=== PATIENT | female | born 1955 | race Hispanic/Latino ===

== ENCOUNTER 2020-09-18 11:09 | Emergency (ER) | payer OTHER ==
--- NOTE | 2020-09-18 12:38 | RAD REPORT ---
EXAM DESCRIPTION: CT - Head Brain Wo Cont - 09/18/2020 12:29 pm CLINICAL HISTORY: Dizziness;Syncope COMPARISON: Brain W/Wo Cont dated 03/24/2020 TECHNIQUE: Axial 5 mm thick images of the head were obtained without IV contrast. All CT scans are performed using dose optimization technique as appropriate and may include automated exposure control or mA/KV adjustment according to patient size. FINDINGS: No intracranial hemorrhage, mass, edema or shift of mid-line structures. No acute cortical based infarction identified. No cortical edema or sulcal effacement. Patient has mild to moderate at rophy for age. Ventricles are in proportion to the amount of volume loss. Scattered areas of diminish ed attenuation are seen in the cerebral white matter consistent with chronic ischemic change. More fo patricia and more pronounced diminished attenuation seen in the deep periventricular white matter of the l eft frontal lobe extending towards the posterior limb internal capsule. This has the appearance of ol d infarction. Diminished attenuation is seen in the posterior left cerebellum probably old CVA as wel l. No abnormal extra-axial fluid collections. Intracranial findings are not clearly different from e March 2020 CT study. Mastoid air cells and visualized portions of the paranasal sinuses are clear. No acute bony findings. IMPRESSION: No hemorrhage, mass or acute intracranial finding identifiable. Atrophy, chronic ischemic change and old CVA changes are present matching the March 2020 study. Chronic ischemic changes can mask nonhemorrhagic acute infarction. MR brain followup can be obtained if there is ongoing concern for acute ischemia.
--- NOTE | 2020-09-18 12:49 | RAD REPORT ---
EXAM DESCRIPTION: RAD - Chest Single View - 09/18/2020 12:44 pm CLINICAL HISTORY: COUGH, syncope COMPARISON: None TECHNIQUE: AP portable chest image was obtained 09/18/2020 12:44 pm . FINDINGS: Lungs are clear. Heart and vasculature are normal. No measurable pleural effusion and no p neumothorax. No acute bony abnormality seen. No acute aortic findings suspected. IMPRESSION: No acute cardiopulmonary process.
--- NOTE | 2020-09-18 12:50 | RAD REPORT ---
EXAM DESCRIPTION: RAD - Elbow Right 3 View - 09/18/2020 12:44 pm CLINICAL HISTORY: FALL, post syncopal episode elbow injury COMPARISON: No comparisons FINDINGS: No fracture is identified and no elevated posterior fat pad. There is no dislocation or pe riosteal reaction noted. No foreign body or other soft tissue abnormality. No other significant findi ng. IMPRESSION: Negative right elbow examination.
[2020-09-18 13:11] LABS: Absolute Lymphocytes (CBC) 1.3 K/uL (0.7-4.9); Basophils % 0.7 % (0-1.3); Hematocrit 36.9 % (36.0-45.0); Lymphocytes % 23.7 % (15.3-44.8); MPV 8.2 fL (7.6-11.3); RBC Red Blood Cell Count 4.42 M/uL (3.86-4.86)
[2020-09-18 13:21] LABS: Protime INR 0.99
[2020-09-18 13:30] LABS: ALT/SGPT 30 U/L (12-78); AST/SGOT 42 U/L (15-37); Albumin 3.8 g/dL (3.4-5.0); Alkaline Phosphatase 67 U/L (45-117); BUN Blood Urea Nitrogen 18 mg/dL (7-18); Bicarbonate 29 mmol/L (21-32); Bilirubin Direct 0.1 mg/dL (0-0.2); Bilirubin Total 0.5 mg/dL (0.2-1.0); Glucose Level 73 mg/dL (74-106); Magnesium 1.7 mg/dL (1.8-2.4); NT PRO-BNP 150 pg/mL (<125); Potassium 4.4 mmol/L (3.5-5.1); Protein, Total 7.4 g/dL (6.4-8.2); Sodium Level 143 mmol/L (136-145); Troponin (Emerg Dept Use Only) < 0.02 ng/mL (0.0-0.045)
--- NOTE | 2020-09-18 14:33 | EDPHYS ---
Physician Documentation [facility] Name: Carmenza Sinclair Age: 64 yrs Sex: Female : 1955 Arrival Date: 09/18/2020 Time: 11:10 Bed 15 Private MD: ED Physician Jagdish Payne HPI: 09/18 14:24 This 64 yrs old Female presents to ER via Stretcher with complaints of Fall irish Injury, Syncope. 14:24 Details of fall: The patient fell from an upright position, while walking. Onset: The irish symptoms/episode began/occurred just prior to arrival. Associated injuries: The patient sustained right elbow, contusion, decreased range of motion. Severity of symptoms: At their worst the symptoms were mild, in the emergency department the symptoms are unchanged. The patient has not experienced similar symptoms in the past. Historical: - Allergies: 11: No Known Allergies; iw - Home Meds: : clopidogrel 75 mg oral tab 1 tab once daily [Active]; glimepiride 4 mg Oral tab 1 tab iw once daily [Active]; amlodipine 10 mg tab 1 tab once daily [Active]; memantine 5 mg oral tab 2 times per day [Active]; metformin 1,000 mg Oral tab 1 tab 2 times per day [Active]; carvedilol 6.25 mg oral tab 1 tab 2 times per day [Active]; levetiracetam 500 mg oral tab 1 tab 2 times per day [Active]; lisinopril 20 mg Oral tab twice a day [Active]; gabapentin 300 mg oral cap as needed [Active]; aspirin 81 mg Oral TbEC 1 tab once daily [Active]; atorvastatin 20 mg oral tab nightly [Active]; sertraline 50 mg oral tab 1 tab nightly [Active]; - PMHx: 11:22 Diabetes - NIDDM; Hypertension; Hyperlipidemia; iw - PSHx: 11: Tubal ligation; iw - Immunization history:: Adult Immunizations Client reports receiving the 2nd dose of the Covid vaccine, Date received: August 2020. - Social history:: Smoking status: Patient denies any tobacco usage or history of. ROS: 14:26 Constitutional: Negative for fever, chills, and weight loss, Eyes: Negative for injury, irish pain, redness, and discharge, ENT: Negative for injury, pain, and discharge, Neck: Negative for injury, pain, and swelling, Cardiovascular: Negative for chest pain, palpitations, and edema, Respiratory: Negative for shortness of breath, cough, wheezing, and pleuritic chest pain, Abdomen/GI: Negative for abdominal pain, nausea, vomiting, diarrhea, and constipation, Back: Negative for injury and pain, : Negative for injury, bleeding, discharge, and swelling, Skin: Negative for injury, rash, and discoloration, Neuro: Negative for headache, weakness, numbness, tingling, and seizure, Psych: Negative for depression, anxiety, suicide ideation, homicidal ideation, and hallucinations, Allergy/Immunology: Negative for hives, rash, and allergies, Endocrine: Negative for neck swelling, polydipsia, polyuria, polyphagia, and marked weight changes, Hematologic/Lymphatic: Negative for swollen nodes, abnormal bleeding, and unusual bruising. 14:26 MS/extremity: Positive for decreased range of motion, pain, swelling, tenderness, of the right elbow. Exam: 14:26 Constitutional: This is a well developed, well nourished patient who is awake, alert, irish and in no acute distress. Head/Face: Normocephalic, atraumatic. Eyes: Pupils equal round and reactive to light, extra-ocular motions intact. Lids and lashes normal. Conjunctiva and sclera are non-icteric and not injected. Cornea within normal limits. Periorbital areas with no swelling, redness, or edema. ENT: Nares patent. No nasal discharge, no septal abnormalities noted. Tympanic membranes are normal and external auditory canals are clear. Oropharynx with no redness, swelling, or masses, exudates, or evidence of obstruction, uvula midline. Mucous membranes moist. Neck: Trachea midline, no thyromegaly or masses palpated, and no cervical lymphadenopathy. Supple, full range of motion without nuchal rigidity, or vertebral point tenderness. No Meningismus. Chest/axilla: Normal chest wall appearance and motion. Nontender with no deformity. No lesions are appreciated. Cardiovascular: Regular rate and rhythm with a normal S1 and S2. No gallops, murmurs, or rubs. Normal PMI, no JVD. No pulse deficits. Respiratory: Lungs have equal breath sounds bilaterally, clear to auscultation and percussion. No rales, rhonchi or wheezes noted. No increased work of breathing, no retractions or nasal flaring. Abdomen/GI: Soft, non-tender, with normal bowel sounds. No distension or tympany. No guarding or rebound. No evidence of tenderness throughout. Back: No spinal tenderness. No costovertebral tenderness. Full range of motion. Female : Normal external genitalia. Skin: Warm, dry with normal turgor. Normal color with no rashes, no lesions, and no evidence of cellulitis. Neuro: Awake and alert, GCS 15, oriented to person, place, time, and situation. Cranial nerves II-XII grossly intact. Motor strength 5/5 in all extremities. Sensory grossly intact. Cerebellar exam normal. Normal gait. Psych: Awake, alert, with orientation to person, place and time. Behavior, mood, and affect are within normal limits. 14:26 Musculoskeletal/extremity: ROM: full active range of motion, full passive range of motion, Circulation is intact in all extremities. Sensation intact. Compartment Syndrome exam of affected extremity: is normal. DVT Exam: negative Homans' sign noted on exam, no appreciated bluish discoloration, no erythema, no increased warmth, pain, swelling, tenderness. 14:30 ECG was reviewed by the Attending Physician. [facility] Vital Signs: 11:15 BP 138 / 77; Pulse 73; Resp 16; Temp 97.3; Pulse Ox 99% on R/A; Weight 93.44 kg; Height iw 5 ft. 2 in. (157.48 cm); 11:15 Body Mass Index 37.68 (93.44 kg, 157.48 cm) iw MDM: 11:58 Patient medically screened. [facility] 14:29 Differential diagnosis: closed fracture, contusion, tendonitis. Differential diagnosis: irish contusion. Data reviewed: vital signs, nurses notes, lab test result(s), EKG, radiologic studies, CT scan, plain films. Data interpreted: Pulse oximetry: on room air is 99 %. Test interpretation: by ED physician or midlevel provider: ECG, plain radiologic studies. Counseling: I had a detailed discussion with the patient and/or guardian regarding: the historical points, exam findings, and any diagnostic results supporting the discharge/admit diagnosis, lab results, radiology results, the need for outpatient follow up, for definitive care, a mason tender, a family practitioner. 09/18 11:59 Order name: Basic Metabolic Panel; Complete Time: 14:18 [facility] 09/18 11:59 Order name: CBC with Diff; Complete Time: 14:18 [facility] 09/18 11:59 Order name: LFT's; Complete Time: 14:18 [facility] 09/18 11:59 Order name: Magnesium; Complete Time: 14:18 [facility] 09/18 11:59 Order name: NT PRO-BNP; Complete Time: 14:18 [facility] 09/18 11:59 Order name: PT-INR; Complete Time: 14:18 [facility] 09/18 11:59 Order name: Troponin (emerg Dept Use Only); Complete Time: 14:18 [facility] 09/18 11:59 Order name: XRAY Chest (1 view); Complete Time: 14:18 [facility] 09/18 11:59 Order name: EKG; Complete Time: 12:00 [facility] 09/18 11:59 Order name: Cardiac monitoring; Complete Time: 13:08 [facility] 09/18 11:59 Order name: CT Head Brain wo Cont; Complete Time: 14:18 [facility] 09/18 12:39 Order name: Elbow Right 3 View; Complete Time: 14:18 ED[facility] 09/18 11:59 Order name: EKG - Nurse/Tech; Complete Time: 13:08 [facility] 09/18 11:59 Order name: IV Saline Lock; Complete Time: 13:07 [facility] 09/18 11:59 Order name: Labs collected and sent; Complete Time: 13:07 [facility] 09/18 11:59 Order name: O2 Per Protocol; Complete Time: 13:07 [facility] 09/18 11:59 Order name: O2 Sat Monitoring; Complete Time: 13:08 [facility] 09/18 14:19 Order name: PO challenge: juice; Complete Time: 14:34 [facility] 09/18 14:28 Order name: Ice pack; Complete Time: 14:34 [facility] EC:30 Rate is 67 beats/min. Rhythm is regular. QRS [place] is Normal. [place] interval is normal. QRS irish interval is normal. QT interval is normal. No Q waves. T waves are Normal. No ST changes noted. Clinical impression: Normal ECG and No evidence of ischemia. Interpreted by me. Reviewed by me. Administered Medications: 13:08 Drug: NS 0.9% 1000 ml Route: IV; Rate: 1 bolus; Site: right antecubital; tr6 14:47 Drug: Magnesium Sulfate 1 grams Route: IVPB; Infused Over: 1 hrs; Site: right tr6 antecubital; 16:00 Follow up: Response: No adverse reaction; IV Status: Completed infusion; IV Intake: tr6 100ml Disposition: 09/18/20 14:33 Discharged to Home. Impression: Syncope and collapse - near, Contusion of right elbow, Type 2 diabetes mellitus, Pain in left knee, Hypomagnesemia, Hypoglycemia, unspecified. - Condition is Stable. - Discharge Instructions: Joint Pain, Arthritis, Hypoglycemia, Hypomagnesemia, Musculoskeletal Pain, Near-Syncope, Obesity, Adult, Weakness, Knee Pain, Cryotherapy, Figp-zo-[id number], Near-Syncope, Dovn-lf-Ovge, Weakness, Rgml-co-Incw, Cryotherapy, Knee Pain, Xdyq-xh-Kokr, Hypoglycemia, Hzfq-gf-Znzx, Joint Pain, Poeg-ut-Qihl, Vasovagal Syncope, Adult. - Medication Reconciliation Form, Thank You Letter, Antibiotic Education, Prescription Opioid Use form. - Follow up: Private Physician; When: 2 - 3 days; Reason: Recheck today's complaints, Continuance of care, Re-evaluation by your physician. Follow up: Donald Castillo MD; When: 2 - 3 days; Reason: Recheck today's complaints, Continuance of care, Re-evaluation by your physician. Follow up: Luis Parikh MD; When: 2 - 3 days; Reason: Recheck today's complaints, Re-evaluation by your physician. - Problem is new. - Symptoms have improved. Signatures: Dispatcher [employer] EDJagdish Pastor MD MD cha Williams, Irene, RN RN iw Ramnanan, Tiffany, RN RN tr6 Corrections: (The following items were deleted from the chart) 16:01 14:33 09/18/2020 14:33 Discharged to Home. Impression: Syncope and collapse - near; tr6 Contusion of right elbow; Type 2 diabetes mellitus; Pain in left knee; Hypomagnesemia; Hypoglycemia, unspecified. Condition is Stable. Forms are Medication Reconciliation Form, Thank You Letter, Antibiotic Education, Prescription Opioid Use. Follow up: Private Physician; When: 2 - 3 days; Reason: Recheck today's complaints, Continuance of care, Re-evaluation by your physician. Follow up: Dr. Donald Castillo; When: 2 - 3 days; Reason: Recheck today's complaints, Continuance of care, Re-evaluation by your physician. Follow up: Luis Parikh; When: 2 - 3 days; Reason: Recheck today's complaints, Re-evaluation by your physician. Problem is new. Symptoms have improved. irish
--- NOTE | 2020-09-18 14:33 | ER ---
Nurse's Notes [facility] Name: Carmenza Sinclair Age: 64 yrs Sex: Female : 1955 Arrival Date: 09/18/2020 Time: 11:10 Bed 15 Private MD: Diagnosis: Syncope and collapse-near;Contusion of right elbow;Type 2 diabetes mellitus;Pain in left knee;Hypomagnesemia;Hypoglycemia, unspecified Presentation: 09/18 11:15 Chief complaint: Patient's son or daughter states: pt had her bone density test, had a iw mammogram and as she was walking out she had a syncopal episode , fell against her son, did not hit head, hit her right elbow , abrasion noted , pt states she feels back to her normal self now. Coronavirus screen: At this time, the client does not indicate any symptoms associated with coronavirus-19. Ebola Screen: Patient negative for fever greater than or equal to 101.5 degrees Fahrenheit, and additional compatible Ebola Virus Disease symptoms Patient denies exposure to infectious person. Patient denies travel to an Ebola-affected area in the 21 days before illness onset. No symptoms or risks identified at this time. Initial Sepsis Screen: Does the patient meet any 2 criteria? No. Patient's initial sepsis screen is negative. Does the patient have a suspected source of infection? No. Patient's initial sepsis screen is negative. Risk Assessment: Do you want to hurt yourself or someone else? Patient reports no desire to harm self or others. Onset of symptoms was September 18, 2020. 11:15 Method Of Arrival: Stretcher 11:15 Acuity: STACIE 3 iw Historical: - Allergies: 11:22 No Known Allergies; iw - Home Meds: 11:22 clopidogrel 75 mg oral tab 1 tab once daily [Active]; glimepiride 4 mg Oral tab 1 tab iw once daily [Active]; amlodipine 10 mg tab 1 tab once daily [Active]; memantine 5 mg oral tab 2 times per day [Active]; metformin 1,000 mg Oral tab 1 tab 2 times per day [Active]; carvedilol 6.25 mg oral tab 1 tab 2 times per day [Active]; levetiracetam 500 mg oral tab 1 tab 2 times per day [Active]; lisinopril 20 mg Oral tab twice a day [Active]; gabapentin 300 mg oral cap as needed [Active]; aspirin 81 mg Oral TbEC 1 tab once daily [Active]; atorvastatin 20 mg oral tab nightly [Active]; sertraline 50 mg oral tab 1 tab nightly [Active]; - PMHx: 11:22 Diabetes - NIDDM; Hypertension; Hyperlipidemia; iw - PSHx: 11:22 Tubal ligation; iw - Immunization history:: Adult Immunizations Client reports receiving the 2nd dose of the Covid vaccine, Date received: August 2020. - Social history:: Smoking status: Patient denies any tobacco usage or history of. Screenin:15 Abuse screen: Denies threats or abuse. Denies injuries from another. Nutritional tr6 screening: No deficits noted. Tuberculosis screening: No symptoms or risk factors identified. Fall Risk Fall in past 12 months (25 points). Assessment: 14:14 General: Appears in no apparent distress. Behavior is calm, cooperative, appropriate tr6 for age. Pain: Complains of pain in right elbow. Neuro: No deficits noted. Cardiovascular: No deficits noted. Respiratory: No deficits noted. GI: No deficits noted. : No deficits noted. EENT: No deficits noted. Derm: No deficits noted. Musculoskeletal: No deficits noted. Injury Description: Bruise sustained to right elbow pt s/p mechanical fall. pt states her "knee went out and she fell. i did not lose consciousness.". 14:50 Reassessment: pt receiving IVPB mag. to be discharged once completed. tr6 Vital Signs: 11:15 BP 138 / 77; Pulse 73; Resp 16; Temp 97.3; Pulse Ox 99% on R/A; Weight 93.44 kg; Height iw 5 ft. 2 in. (157.48 cm); 11:15 Body Mass Index 37.68 (93.44 kg, 157.48 cm) iw ED Course: 11:10 Patient arrived in ED. ds1 11:18 Triage completed. iw 11:22 Arm band placed on. iw 11:58 Jagdish Payne MD is Attending Physician. [facility] 12:00 Camilla De La Paz RN is Primary Nurse. tr6 12:29 CT Head Brain wo Cont In Process Unspecified. EDMS 12:41 X-ray completed. Patient tolerated procedure well. Patient moved to radiology via mh1 stretcher. Patient moved back from radiology. 12:42 XRAY Chest (1 view) In Process Unspecified. EDMS 12:42 Elbow Right 3 View In Process Unspecified. EDMS 13:08 Inserted saline lock: 20 gauge in right antecubital area, using aseptic technique. tr6 Blood collected. 14:15 Awaiting re-evaluation by ER provider. tr6 14:15 Patient has correct armband on for positive identification. Fall risk band placed. Bed tr6 in low position. Call light in reach. Side rails up X2. Pulse ox on. NIBP on. Notified ED physician of. Door closed. 14:15 No provider procedures requiring assistance completed. tr6 14:31 Donald Castillo MD is Referral Physician. irish 14:31 Luis Parikh MD is Referral Physician. [facility] Administered Medications: 13:08 Drug: NS 0.9% 1000 ml Route: IV; Rate: 1 bolus; Site: right antecubital; tr6 14:47 Drug: Magnesium Sulfate 1 grams Route: IVPB; Infused Over: 1 hrs; Site: right tr6 antecubital; 16:00 Follow up: Response: No adverse reaction; IV Status: Completed infusion; IV Intake: tr6 100ml Intake: 16:00 IV: 100ml; Total: 100ml. tr6 Outcome: 14:33 Discharge ordered by . [facility] 16:00 Discharged to home via wheelchair, with family. tr6 16:00 Condition: good 16:00 Discharge instructions given to patient, Instructed on discharge instructions, medication usage, safety practices, Demonstrated understanding of instructions, follow-up care, medications. 16:01 Patient left the ED. tr6 Signatures: Dispatcher [employer] Jagdish Maldonado MD MD cha Harvey, Martha 1 Nayeli Kearney 1 Belem Steele RN RN iw Ramnanan, Tiffany, RN RN tr6
[2020-09-18] MEDS ORDERED: MAGNESIUM SULFATE 1 gm IVPB 1 GM/100 ML BAG IV ONE (14:57)
[2020-09-18 16:09] VITALS: BP 138/77; TEMP 97.3; O2SAT 99
--- NOTE | 2020-09-19 10:29 | EKG ---
Test Date: 2020-09-18 Test Time: 12:05:36 Shirt Hemmer: LANG MEASUREMENT RESULTS: Intervals: Rate: 67 AK: 152 QRSD: 84 QT: 454 QTc: 479 [place]: P: 55 AK: 152 QRS: 8 T: 16 INTERPRETIVE STATEMENTS: Normal sinus rhythm Normal ECG Compared to ECG 09/01/2020 14:15:29 No significant changes Electronically Signed On 09-19-20 10:25:55 CDT by Luis Parikh
== END 2020-09-18 16:01 | disposition home or self-care (01) ==
LOC: ER 11:09
DX: S50.01XA Contusion of right elbow, initial encounter (principal); M25.562 Pain in left knee; E83.42 Hypomagnesemia; E11.649 Type 2 diabetes mellitus with hypoglycemia without coma; I10 Essential (primary) hypertension; E78.5 Hyperlipidemia, unspecified; Z79.82 Long term (current) use of aspirin
CPT/HCPCS: 85025; 80048; 36415; 83735; 85610; 80076; 84484; 83880; 70450; 71045; 73080; J3475; 93005; 96365; 99284

== ENCOUNTER 2021-02-05 12:17 | Emergency (ER) | payer OTHER ==
--- NOTE | 2021-02-05 13:33 | RAD REPORT ---
EXAM DESCRIPTION: CT - Head Brain Wo Cont - 02/05/2021 1:10 pm CLINICAL HISTORY: PAIN COMPARISON: Facial Bones W/ Mpr dated 02/05/2021; Head Brain Wo Cont dated 09/18/2020 TECHNIQUE: All CT scans are performed using dose optimization technique as appropriate and may inclu de automated exposure control or mA/KV adjustment according to patient size. FINDINGS: No intracranial hemorrhage, hydrocephalus or extra-axial fluid collection.No areas of brai n edema or evidence of midline shift. Remote left basal ganglia infarct. Chronic small vessel ischemi c changes. The paranasal sinuses and mastoids are clear. The calvarium is intact. IMPRESSION: No acute intracranial abnormality. No skull fracture.
--- NOTE | 2021-02-05 13:34 | RAD REPORT ---
EXAM DESCRIPTION: CT - CTFB CLINICAL HISTORY: FACIAL PAIN COMPARISON: No comparisons TECHNIQUE: Axial 2 mm thick images of the face were obtained with sagittal and coronal reconstructio n images. All CT scans are performed using dose optimization technique as appropriate and may include automated exposure control or mA/KV adjustment according to patient size. FINDINGS: No acute facial bone fracture is seen.The mandible is intact. The globes and orbital contents are grossly unremarkable.The paranasal sinuses and mastoids are clear . Left cheek hematoma. IMPRESSION: Negative for facial bone fracture.Left cheek hematoma.
--- NOTE | 2021-02-05 14:01 | RAD REPORT ---
EXAM DESCRIPTION: RAD - Hand Left 3 View - 02/05/2021 1:53 pm CLINICAL HISTORY: PAIN COMPARISON: No comparisons FINDINGS: No acute fracture. No malalignment. Degenerative changes are present at the first MCP join t. Mild diffuse interphalangeal joint degenerative changes with joint space narrowing. IMPRESSION: No acute osseous abnormality involving the left hand.
--- NOTE | 2021-02-05 14:06 | EDPHYS ---
Physician Documentation [facility] Name: Carmenza Sinclair Age: 65 yrs Sex: Female : 1955 Arrival Date: 02/05/2021 Time: 12:19 Bed 20 Private MD: SUMAN Physician Jagdish Payne HPI: 02/05 14:11 This 65 yrs old Female presents to ER via Wheelchair with complaints of Fall kb Injury - Hit Head. 14:11 Details of fall: The patient fell from an upright position, while walking. Onset: The kb symptoms/episode began/occurred just prior to arrival. Associated injuries: The patient sustained injury to the head, hematoma, pain, swelling, tenderness, heel of left hand, hematoma, painful injury. Severity of symptoms: At their worst the symptoms were moderate, in the emergency department the symptoms are unchanged. The patient has not experienced similar symptoms in the past. The patient has not recently seen a physician. Pt tripped over 's oxygen tubing and fell. Hit face on fridge and then fell to the ground. Reports pain to cheek and left hand. Historical: - Allergies: 12:32 Cortisone; swelling; vg1 - Home Meds: 12:32 amlodipine 10 mg tab 1 tab once daily [Active]; aspirin 81 mg Oral TbEC 1 tab once vg1 daily [Active]; atorvastatin 20 mg Oral tab nightly [Active]; carvedilol 6.25 mg Oral tab 1 tab 2 times per day [Active]; clopidogrel 75 mg Oral tab 1 tab once daily [Active]; gabapentin 300 mg Oral cap as needed [Active]; glimepiride 4 mg Oral tab 1 tab once daily [Active]; lisinopril 20 mg Oral tab twice a day [Active]; memantine 5 mg Oral tab 2 times per day [Active]; metformin 1,000 mg Oral tab 1 tab 2 times per day [Active]; sertraline 50 mg Oral tab 1 tab nightly [Active]; levetiracetam 500 mg Oral tab 1 tab 2 times per day [Active]; - PMHx: 12:32 Diabetes - NIDDM; Hyperlipidemia; Hypertension; Seizure; Cerebrovascular accident; vg1 - Immunization history:: Adult Immunizations up to date, Client reports receiving the 2nd dose of the Covid vaccine. - Social history:: Smoking status: Patient denies any tobacco usage or history of. ROS: 14:09 Constitutional: Negative for fever, chills, and weight loss. kb 14:09 Skin: Positive for hematoma, of the left cheek. 14:09 Skin: Positive for ecchymosis, of the heel of left hand. kb 14:09 All other systems are negative. 14:09 MS/extremity: Positive for ecchymosis, pain, tenderness, of the heel of left hand. kb Exam: 14:10 Constitutional: This is a well developed, well nourished patient who is awake, alert, kb and in no acute distress. Head/Face: Normocephalic, atraumatic. ENT: Moist Mucous membranes Respiratory: Respirations even and unlabored. No increased work of breathing, no retractions or nasal flaring. MS/ Extremity: Pulses equal, no cyanosis. Neurovascular intact. Full, normal range of motion. Neuro: Awake and alert, GCS 15, oriented to person, place, time, and situation. Moves all extremities. Normal gait. Psych: Awake, alert, with orientation to person, place and time. Behavior, mood, and affect are within normal limits. 14:10 Skin: injury, contusion(s), that are superficial, of the heel of left hand. 14:10 Head/face: Noted is no obvious of injury or deformity except hematoma, that is kb moderate, of the left cheek. Vital Signs: 12:29 BP 145 / 75; Pulse 72; Resp 16; Temp 98.1; Pulse Ox 98% ; Weight 95.25 kg; Height 5 ft. vg1 4 in. (162.56 cm); Pain 5/10; 14:00 BP 128 / 76; Pulse 75; Resp 18; Temp 98.2(O); Pulse Ox 100% on R/A; sl2 14:50 BP 134 / 67; Pulse 70; Resp 18; Pulse Ox 100% on R/A; ll1 12:29 Body Mass Index 36.05 (95.25 kg, 162.56 cm) vg1 MDM: 13:12 Patient medically screened. kb 14:09 Data reviewed: vital signs, nurses notes. Data interpreted: Pulse oximetry: on room air kb is 100 %. Interpretation: normal. Counseling: I had a detailed discussion with the patient and/or guardian regarding: the historical points, exam findings, and any diagnostic results supporting the discharge/admit diagnosis, radiology results, the need for outpatient follow up, a family practitioner, to return to the emergency department if symptoms worsen or persist or if there are any questions or concerns that arise at home. 02/05 12:35 Order name: CT Head Brain wo Cont; Complete Time: 13:36 kb 02/05 12:35 Order name: CT Facial Bones W/O Con; Complete Time: 13:36 kb 02/05 12:35 Order name: Hand Left 3 View XRAY; Complete Time: 14:03 kb Administered Medications: No medications were administered Disposition: 02/06 11:31 Co-signature as Attending Physician, Jagdish Payne MD I agree with the assessment and irish plan of care. Disposition Summary: 02/05/21 14:06 Discharge Ordered Location: Home kb Condition: Stable kb Diagnosis - Contusion of left hand kb - Hematoma of left cheek kb Followup: kb - With: Emergency Department - When: As needed - Reason: Worsening of condition Followup: kb - With: Private Physician - When: 2 - 3 days - Reason: Recheck today's complaints, Continuance of care, Re-evaluation by your physician Discharge Instructions: - Discharge Summary Sheet kb - Hematoma, [id number] kb - Contusion, [id number] kb - Head Injury, Adult, [id number] kb Forms: - Medication Reconciliation Form kb - Thank You Letter kb - Antibiotic Education kb - Prescription Opioid Use kb Signatures: Dispatcher [employer] EDJagruti Sky, SOLDERING TECHNICIAN-C SOLDERING TECHNICIAN-Jagdish Enamorado MD MD cha Garcia, Victoria, RN RN vg1 Corrections: (The following items were deleted from the chart) 02/05 12:36 12:32 Allergies: No Known Allergies; vg1 vg1
--- NOTE | 2021-02-05 14:06 | ER ---
Nurse's Notes [facility] Name: Carmenza Sinclair Age: 65 yrs Sex: Female : 1955 Arrival Date: 02/05/2021 Time: 12:19 Bed 20 Private MD: Diagnosis: Contusion of left hand;Hematoma of left cheek Presentation: 02/05 12:29 Chief complaint: Patient states: Around 1100 pt tripped and hit left side of cheek onto vg1 refrigerator. Pt appears to have an abrasion on Left cheek and a bruise/swelling on Left palm. Pt is on a blood thinner, but cant remember the name. Pt denies headache, blur vision, [place]. Coronavirus screen: Vaccine status: Patient reports receiving the 2nd dose of the covid vaccine. Client denies travel out of the [place] in the last 14 days. Ebola Screen: Patient negative for fever greater than or equal to 101.5 degrees Fahrenheit, and additional compatible Ebola Virus Disease symptoms. Initial Sepsis Screen: Does the patient meet any 2 criteria? No. Patient's initial sepsis screen is negative. Does the patient have a suspected source of infection? No. Patient's initial sepsis screen is negative. Risk Assessment: Do you want to hurt yourself or someone else? Patient reports no desire to harm self or others. Onset of symptoms was February 05, 2021. 12:29 Method Of Arrival: Wheelchair vg1 12:29 Acuity: STACIE 3 vg1 Triage Assessment: 12:32 General: Appears in no apparent distress. comfortable, Behavior is calm, cooperative. vg1 Pain: Complains of pain in left cheek. 12:32 Neuro: Level of Consciousness is awake, alert, obeys commands, Oriented to person, vg1 place, time, situation, Oxidation Operator are equal bilaterally Speech is normal. Historical: - Allergies: 12:32 Cortisone; swelling; vg1 - Home Meds: 12:32 amlodipine 10 mg tab 1 tab once daily [Active]; aspirin 81 mg Oral TbEC 1 tab once vg1 daily [Active]; atorvastatin 20 mg Oral tab nightly [Active]; carvedilol 6.25 mg Oral tab 1 tab 2 times per day [Active]; clopidogrel 75 mg Oral tab 1 tab once daily [Active]; gabapentin 300 mg Oral cap as needed [Active]; glimepiride 4 mg Oral tab 1 tab once daily [Active]; lisinopril 20 mg Oral tab twice a day [Active]; memantine 5 mg Oral tab 2 times per day [Active]; metformin 1,000 mg Oral tab 1 tab 2 times per day [Active]; sertraline 50 mg Oral tab 1 tab nightly [Active]; levetiracetam 500 mg Oral tab 1 tab 2 times per day [Active]; - PMHx: 12:32 Diabetes - NIDDM; Hyperlipidemia; Hypertension; Seizure; Cerebrovascular accident; vg1 - Immunization history:: Adult Immunizations up to date, Client reports receiving the 2nd dose of the Covid vaccine. - Social history:: Smoking status: Patient denies any tobacco usage or history of. Screenin:30 Abuse screen: Denies threats or abuse. sl2 13:30 Abuse screen: Denies threats or abuse. Nutritional screening: No deficits noted. sl2 Tuberculosis screening: No symptoms or risk factors identified. Never had TB. Possible symptoms: None Risk factors: None Intervention for positive screen: ED Physician notified. Fall Risk No fall in past 12 months (0 pts). No secondary diagnosis (0 pts). No IV (0 pts). Ambulatory Aid- None/Bed Rest/Nurse Assist (0 pts). Gait- Normal/Bed Rest/Wheelchair (0 pts) Mental Status- Oriented to own ability (0 pts). Total Cox Fall Scale indicates No Risk (0-24 pts). 14:50 Fall Risk Fall in past 12 months (25 points). Secondary diagnosis (15 points) impaired sl2 mobility, No IV (0 pts). Ambulatory Aid- Crutches/Cane/Walker (15 pts). Gait- Impaired (20 pts.). Mental Status- Oriented to own ability (0 pts). Total Cox Fall Scale indicates High Risk Score (45 or more points). Fall prevention measures have been instituted. Side Rails Up X 2 Placed Close to Nursing Station Frequent Obs/Assessments Occuring Family Present and informed to notify staff if the need to leave the bedside. Assessment: 12:38 General: Appears in no apparent distress. well developed, Behavior is calm, sl2 cooperative, Reports mild pain to left cheek, swelling and ecchymotic bruising noted, Patient reports tripped and fell hitting her face on the refrigerator at home - takes blood thinners. 12:38 Pain: Complains of pain in face and left cheek Pain does not radiate. Pain currently is sl2 4 out of 10 on a pain scale. at worst was 6 out of 10 on a pain scale. Quality of pain is described as aching, Pain began suddenly, Is continuous, Alleviated by cold application, Aggravated by palpation. Neuro: No deficits noted. Level of Consciousness is awake, alert, obeys commands, Oriented to person, place, time, situation, Appropriate for age Oxidation Operator are equal bilaterally Moves all extremities. Gait is unsteady, Speech is normal, Facial symmetry appears normal. Cardiovascular: No deficits noted. Respiratory: No deficits noted. GI: No deficits noted. : No deficits noted. EENT: No deficits noted. Derm: Skin is intact, Skin is dry, Skin is pink, warm \T\ dry. Skin temperature is warm Reports hitting her face on refrigerator secondary to trip and fall, swelling and ecchymotic bruising noted to left cheek. Musculoskeletal: No deficits noted. 14:05 Reassessment: Patient sitting up in bed - AAO X 3, shows no signs of acute distress or sl2 discomfort, vital signs stable. Patient denies needing pain medication at this time. Awaiting completion of diagnostic studies. Will continue to re-assess and monitor. 14:50 Reassessment: No changes from previously documented assessment. Patient and/or family ll1 updated on plan of care and expected duration. Pain level reassessed. Patient is alert, oriented x 3, equal unlabored respirations, skin warm/dry/pink. Vital Signs: 12:29 BP 145 / 75; Pulse 72; Resp 16; Temp 98.1; Pulse Ox 98% ; Weight 95.25 kg; Height 5 ft. vg1 4 in. (162.56 cm); Pain 5/10; 14:00 BP 128 / 76; Pulse 75; Resp 18; Temp 98.2(O); Pulse Ox 100% on R/A; sl2 14:50 BP 134 / 67; Pulse 70; Resp 18; Pulse Ox 100% on R/A; ll1 12:29 Body Mass Index 36.05 (95.25 kg, 162.56 cm) vg1 ED Course: 12:19 Patient arrived in ED. ds1 12:32 Triage completed. vg1 12:32 Arm band placed on. vg1 12:34 Jagruti Vasquez [facility]-C [facility]. kb 12:34 Jagdish Payne MD is Attending Physician. kb 13:10 CT Head Brain wo Cont In Process Unspecified. EDMS 13:10 CT Facial Bones W/O Con In Process Unspecified. EDMS 13:30 Patient has correct armband on for positive identification. Bed in low position. Adult sl2 w/ patient. 13:30 No provider procedures requiring assistance completed. sl2 13:48 Mae Austin, RN is Primary Nurse. sl2 13:53 Hand Left 3 View XRAY In Process Unspecified. EDMS 14:50 Side rails up X 1. sl2 14:50 Patient did not have IV access during this emergency room visit. ll1 Administered Medications: No medications were administered Outcome: 14:06 Discharge ordered by MD. kb 14:50 Discharged to home via wheelchair. ll1 14:50 Condition: stable 14:50 Discharge instructions given to patient, Instructed on discharge instructions, follow up and referral plans. Demonstrated understanding of instructions, follow-up care. 14:50 Patient left the ED. ll1 14:50 Discharged to home with family. sl2 14:50 Condition: stable 14:50 Discharge instructions given to patient, family, Instructed on discharge instructions, follow up and referral plans. fall risk safety Demonstrated understanding of Signatures: Dispatcher [employer] EDAZ Jagruti Vasquez FNP-C PROBATION OFFICER-Urib Nayeli Kearney ds1 Courtney Kiser RN RN vg1 Ree Bearden RN RN 1 Mae Austin, ALICIA RN sl2 Corrections: (The following items were deleted from the chart) 12:36 12:32 Allergies: No Known Allergies; vg1 vg1 14:51 12:38 Neuro: No deficits noted. Level of Consciousness is awake, alert, obeys commands, sl2 Oriented to person, place, time, situation, Appropriate for age Oxidation Operator are equal bilaterally Moves all extremities. Gait is steady, Speech is normal, Facial symmetry appears normal, sl2
[2021-02-05 15:10] VITALS: TEMP 98.2; O2SAT 100
[2021-02-05 15:11] VITALS: BP 134/67
--- OUTSIDE RECORDS SUMMARY | 2021-02-17 05:06 | XMS REPORT | Continuity of Care Document ---
:1955 Author Organization [facility] t Address [address] [place] [address] Care Team Providers Name Role Phone Pcp, Patient Does Not Have A Primary Care Physician [id number] Eben ROD, G Attending Clinician Nurse, Pob Immunization Attending Clinician Unavailable Kenisha NULL, M Attending Clinician Payers Payer Name Policy Type Policy Number Effective Date Expiration Date S ource Problems Condition Condition Condition Status Onset Resolution Last Treating Co mments Source Name Details Category Date Date Treatment Clinician Date CVA CVA Disease Active Univers (cerebral (cerebral 5-14 ity of vascular vascular 00:00: [place] accident) accident) 00 Medi patricia Branch Facial Facial Disease Active Univers droop droop 5-13 ity of 00:00: [place] 00 Medical Branch Weakness Weakness Disease Active Unive rs due to due to 5-09 ity of cerebrovas cerebrovas 00:00: [facility] cular cular 00 Medical accident accident Branch Obesity Obesity Disease Active Univers (BMI (BMI 08-13 ity of 30-39.9) 30-39.9) 00:00: [place] [facility] Essential Essential Disease Active Uni vers hypertensi hypertensi 08-13 it y of on on 00:00: Medical Branch Type 2 Type 2 Disease Active Univers diabetes diabetes 08-13 ity of mellitus mellitus 00:00: [place] without without 00 Medical complicati complicati Br anch on, on, without without long-term long-term current current use of use of insulin insulin Dyslipidem Dyslipidem Disease Active U nivers ia ia 08-13 ity of 00:00: [place] [facility] 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-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 00:00: [place] stroke, stroke, 00 Medical [employer]LLING [employer]UGG[employer] Branch (posterior (posterior cerebral cerebral artery) artery) Cerebral Cerebral Disease Active Unive rs edema edema 08-13 ity of 00:00: Medical Branch Allergies, Adverse Reactions, Alerts Allergy Allergy Status Severity Reaction(s) Onset Inactive Treating Comm ents Source Name Type Date Date Clinician Feliz Propensi Active Unknown - Uni vers e (Bulk) ty to See comments -11 it y of adverse 00:00: [place] reaction 00 Medical s Branch CORTISON DRUG Active Unknown-Cmnt Un kesha E (BULK) 1-11 ity of 00:00: [place] [facility] Cortison Adverse Active Info Not [facility] Reaction Available [facility] Social History Social Habit Start Date Stop Date Quantity Comments Source Exposure to Not sure [facility] SARS-CoV-2 [place] Medical (event) Branch Alcohol intake 2020-11-24 2020-11-24 Current [facility] 00:00:00 00:00:00 non-drinker of [facility] alcohol Branch (finding) Sex [birth year] Universit y of 00:00:00 00:00:00 [facility] Smoking Status Start Date Stop Date Source Never smoker [facility] Medical Branch Medications Ordered Filled Start Stop Current Ordering Indication Dosage Frequency Signature Comments Components Source Medication Medication Date Date Medication? Clinician (SIG) Name Name gabapentin Yes [id number] 100mg Take 1 Univers 100 mg 8-20 9108 capsule by ity of capsule 00:00: mouth 3 [place] 00 (three) Medical times Branch daily as needed for Pain (scale 4-6) or Nausea and Vomiting (N/V). glimepiride 2018-0 Yes 2mg Take 2 mg U nivers 2 mg tablet 5-15 by mouth ity of 18:19: daily with [place] 36 breakfast. Medical Branch Diclofenac 2018-0 Yes 50mg Take 50 mg U nivers Potassium 5-15 by mouth 2 ity of 50 mg PwPk 18:19: (two) [place] 36 times Medical daily. Branch carvedilol 2018-0 Yes 6.25mg Take 6.25 Univers 6.25 mg 5-15 mg by ity of tablet 18:19: mouth 2 [place] 36 (two) Medical times Branch daily with meals. proMETHazin 2018-0 Yes 25mg Take 25 mg Univers e 25 mg 5-15 by mouth ity of tablet 18:19: every 8 [place] [id number] (eight) Medical hours. Branch metFORMIN 2017-0 Yes 1000mg Take 1,000 Univers 1,000 mg 5-15 mg by ity of tablet 18:19: mouth 2 [place] 36 (two) Medical times Branch daily with meals. glimepiride 2018-0 Yes 2mg Take 2 mg U nivers 2 mg tablet 5-15 by mouth ity of 18:19: daily with [place] 36 breakfast. Medical Branch Diclofenac 2018-0 Yes 50mg Take 50 mg U nivers Potassium 5-15 by mouth 2 ity of 50 mg PwPk 18:19: (two) [place] times Medical daily. Branch carvedilol 2018-0 Yes 6.25mg Take 6.25 Univers 6.25 mg 5-15 mg by ity of tablet 18:19: mouth 2 [place] 36 (two) Medical times Branch daily with meals. proMETHazin 2018-0 Yes 25mg Take 25 mg Univers e 25 mg 5-15 by mouth ity of tablet 18:19: every 8 [place] (eight) Medical hours. Branch metFORMIN 2018-0 Yes 1000mg Take 1,000 Univers 1,000 mg 5-15 mg by ity of tablet 18:19: mouth 2 [place] 36 (two) Medical times Branch daily with meals. levETIRAcet 2017-0 Yes 1000mg Take 1 Un kesha am 1,000 mg 5-15 tablet by ity of tablet 00:00: mouth 2 00 (two) Medical times Branch daily. levETIRAcet 2018-0 Yes 1000mg Take 1 Un kesha am 1,000 mg 5-15 tablet by ity of tablet 00:00: mouth 2 00 (two) Medical times Branch daily. lisinopril 2017-0 Yes 20mg Take 1 Unive rs 20 mg 5-12 tablet by ity of tablet 00:00: mouth [place] 00 daily. Medical Branch aspirin 81 Yes 81mg Take 1 Unive rs mg chewable 5-12 tablet by ity of tablet 00:00: mouth [place] 00 daily. Medical Branch clopidogrel 0 Yes 75mg Take 1 Univ ers 75 mg 5-12 tablet by ity of tablet 00:00: mouth [place] 00 daily. Medical Branch lisinopril Yes 20mg Take 1 Unive rs 20 mg 5-12 tablet by ity of tablet 00:00: mouth [place] 00 daily. Medical Branch aspirin 81 0 Yes 81mg Take 1 Unive rs mg chewable 5-12 tablet by ity of tablet 00:00: mouth [place] 00 daily. Medical Branch clopidogrel 0 Yes 75mg Take 1 Univ ers 75 mg 5-12 tablet by ity of tablet 00:00: mouth [place] 00 daily. Medical Branch atorvastati Yes 20mg Take 1 Univ ers n 20 mg 5-11 tablet by ity of tablet 00:00: mouth [place] 00 every Medical evening. Branch atorvastati Yes 20mg Take 1 Univ ers n 20 mg 5-11 tablet by ity of tablet 00:00: mouth [place] 00 every Medical evening. Branch ELASTIC Yes PRN pain Univer s WRIST 1-10 ity of SPLINT 00:00: [place] SUPPORT 00 Medical MISC MISC Branch ELASTIC 0 Yes PRN pain Univer s WRIST 1-10 ity of SPLINT 00:00: [place] SUPPORT 00 Medical [facility] Branch Atorvastati Atorvastati Yes Angeli [address] [facility] [facility] Calcium n Calcium [facility] Immunizations Ordered Filled Immunization Date Status Comments Sour e Immunization Name Name SARS-COV-2 COVID-19 2020-08-11 Completed Unive rsity of PFIZER VACCINE 00:00:00 [facility] SARS-COV-2 COVID-19 2020-08-11 Completed Unive rsity of PFIZER VACCINE 00:00:00 [facility] SARS-COV-2 COVID-19 2020-07-18 Completed Unive rsity of PFIZER VACCINE 00:00:00 [facility] SARS-COV-2 COVID-19 2020-07-18 Completed Unive rsity of PFIZER VACCINE 00:00:00 [facility] Vital Signs Vital Name Observation Time Observation Value Comments Source Systolic blood 2020-11-24 15:14:00 134 mm[Hg] Univer sity of pressure [facility] Diastolic blood 2020-11-24 15:14:00 86 mm[Hg] Unive rsity of pressure [facility] Heart rate 2020-11-24 15:14:00 67 /min [facility] Body temperature 2020-11-24 15:14:00 36.94 Zakiya [facility] Respiratory rate 2020-11-24 15:14:00 14 /min [facility] Body height 2020-11-24 15:14:00 162.6 cm [facility] Body weight 2020-11-24 15:14:00 95.255 kg [facility] BMI 2020-11-24 15:14:00 36.05 kg/m2 [facility] Oxygen saturation in 2020-11-24 15:14:00 99 /min [facility] Arterial blood by [facility] Pulse oximetry [place] Procedures Procedure Date / Time Performed Performing Clinician Tolu e XR ELBOW >3 VW RIGHT 2020-11-24 15:37:33 Feng Treadwell [facility] NOTICE OF PRIVACY 2020-11-24 14:45:40 Doctor Unassigned, No Univ ers[facility] [place] PRACTICES Name Medical Branch SARS-COV-2 COVID-19 2020-08-11 17:02:20 Doctor Unassigned, No [facility],0.[facility],IM Name Medical Branch (PFIZER) Plan of Care Planned Activity Planned Date Details Comments Source Future Scheduled 2020-12-06 INFLUENZA VACCINE [facility] [place] Test 00:00:00 (Season Ended) [code = Medic al Branch INFLUENZA VACCINE (Season Ended)] Future Scheduled 2019-10-15 Medicare Annual [facility] Test 00:00:00 Wellness Visit Medical [facility] (procedure) [code = 026985623351557] Future Scheduled 2019-10-15 Screening for [facility] Test 00:00:00 osteoporosis Medical Branch (procedure) [code = 118137249] Future Scheduled 2019-10-15 [facility]CCAL [facility]00 65+ (1 of 1 - PPSV23) Medica l Branch [code = PNEUMOCOCCAL VACCINES 65+ (1 of 1 - PPSV23)] Future Scheduled 2018-08-19 Creatinine measurement U [facility] Test 00:00:00 (procedure) [code = Medical Branch 52290563] Future Scheduled 2018-08-17 Calculated low density U [facility] Test 00:00:00 lipoprotein Medical Branch cholesterol level (procedure) [code = 254718292] Future Scheduled 2018-02-17 Hemoglobin A1c [facility] Test 00:00:00 measurement Medical Branch (procedure) [code = 51723220] Future Scheduled 2007-02-26 Microalbumin [facility] Test 00:00:00 measurement, urine, Medical Branch quantitative (procedure) [code = 053534012] Future Scheduled 2004 Screening for occult Uni [facility] Test 00:00:00 blood in feces [facility] (procedure) [code = 448730796] Future Scheduled 2004 Stool DNA-based [facility] Test 00:00:00 colorectal cancer Medical Br anch screening (procedure) [code = 868134732640738] Future Scheduled 2004 Flexible fiberoptic [facility] Test 00:00:00 sigmoidoscopy Medical Branch (procedure) [code = 78377304] Future Scheduled 2004 Screening for [facility] Test 00:00:00 malignant neoplasm of Medica l Branch colon (procedure) [code = 212427618] Future Scheduled 2004 Screening for [facility] Test 00:00:00 malignant neoplasm of Medica l Branch colon (procedure) [code = 564366076] Future Scheduled 2004 Zoster Recombinant [facility] [place] Test 00:00:00 Vaccine (SHINGRIX) (1 Medica l Branch of 2) [code = Zoster Recombinant Vaccine (SHINGRIX) (1 of 2)] Future Scheduled 1994 Screening for [facility] Test 00:00:00 malignant neoplasm of Medica l Branch breast (procedure) [code = 168252442] Future Scheduled 1973 DTaP,Tdap,and Td [facility] Vaccines (1 - Tdap) Medical Branch [code = DTaP,Tdap,and Td Vaccines (1 - Tdap)] Future Scheduled 1972 Diabetic foot [facility] Test 00:00:00 examination Medical Branch (regime/therapy) [code = 075476793] Future Scheduled 1972 Hepatitis C [facility] 00:00:00 (procedure) [code = Medical Branch 717937028] Future Scheduled 1966 Depression screening Uni versity [facility] Test 00:00:00 (procedure) [code = Medical Branch 433760646] Future Scheduled 1964 Examination of retina Un iversity [facility] Test 00:00:00 (procedure) [code = Medical Branch 231793607] Encounters Start End Encounter Admission Attending Care Care Encounter Source Date/Time Date/Time Type Type Clinicians Facility Department ID 2021-01-24 2021-01-24 Outpatient [facility] [id number] [facility] 00[facility]00[facility]00 [facility] 2021-01-16 2021-01-16 [facility] [id number] [facility] 00[facility] 2020-12-29 2020-12-29 [id number] 2020-12-06 2020-12-06 [id number] 2020-11-24 2020-11-24 Emergency [facility] [id number] [facility] 10:15:00 11:54:00 Feng Shelton [id number] ity [place] [id number] [facility] [id number] [address] 2020-11-24 2020-11-24 Emergency X [facility] ERT [id number] Univers 09:45:00 09:45:00 ity of [facility] 2020-11-21 2020-11-21 Outpatient [facility] [id number] [facility] 2020-11-21 2020-11-21 Outpatient [facility] [id number] [facility] 2020-11-02 2020-11-02 Outpatient [facility] [id number] [facility] 2020-10-31 2020-10-31 Outpatient [facility] [id number] [facility] 2020-09-21 2020-09-21 Outpatient [facility] [id number] [facility] 2020-09-01 2020-09-01 Outpatient [facility] [id number] [facility] 2020-08-25 2020-08-25 Outpatient [facility] [id number] [facility] 2020-08-25 2020-08-25 Outpatient [facility] [id number] [facility] 2020-08-21 2020-08-21 Outpatient [facility] [id number] [facility] 2020-07-26 2020-07-26 Outpatient [facility] [id number] [facility] 2020-07-20 2020-07-20 Outpatient [facility] [id number] [facility] 2020-07-11 2020-07-11 Outpatient [facility] [id number] [facility] 2020-06-08 2020-06-08 Outpatient [facility] [id number] [facility] 2020-04-11 2020-04-11 Outpatient [facility] [id number] [facility] 2020-01-06 2020-01-06 Outpatient [facility] [id number] [facility] 2020-01-04 2020-01-04 Outpatient [facility] [id number] [facility] 2019-12-31 2019-12-31 Outpatient [facility] [id number] [facility] 2019-12-30 2019-12-30 Outpatient [facility] [id number] [facility] 2019-12-21 2019-12-21 Outpatient [facility] [id number] [facility] 2019-12-16 2019-12-16 [facility] [id number] 16:48:00 16:48:00 t [facility] l Medicine Outpati ent Clinics 2019-12-07 2019-12-07 [facility] [id number] 09:01:00 09:01:00 t [employer] [facility] Medicine l Medicine Outpati ent Clinics 2019-09-29 2019-09-29 [facility] [id number] 16:06:00 16:06:00 t [facility] Medicine Medicine Outpati ent Clinics 2019-06-15 2019-06-15 [facility] [id number] 13:49:00 13:49:00 t [facility] Medicine Medicine Outpati ent Clinics 2019-05-05 2019-05-05 [facility] [id number] 11:00:00 11:00:[address] [facility] Medicine l Medicine Outpati ent Clinics 2019-02-23 2019-02-23 [facility] [id number] 11:46:00 11:46:[address] [facility] Medicine Outpati ent Clinics 2018-06-04 2018-06-04 [facility] [id number] 11:45:00 11:45:00 t [facility] Medicine l Medicine Outpati ent Clinics 2017-12-22 2017-12-22 [facility] [id number] 11:56:00 11:56:00 t [facility] Medicine Outpati ent Clinics 2017-12-04 2017-12-04 [facility] [id number] 09:00:00 09:00:[address] [facility] Medicine Medicine Outpati ent Clinics 2017-12-01 2017-12-01 [facility] [id number] 11:10:00 11:10:[address] [facility] Medicine Medicine Outpati ent Clinics 2017-09-11 2017-09-11 [facility] [id number] 14:57:00 14:57:[address] [facility] Medicine Medicine Outpati ent Clinics 2017-09-04 2017-09-04 [facility] [id number] 14:14:00 14:14:00 [facility] [place] Medicine Outpat[facility] Clinics Results Test Description Test Time Test Comments Results Result Sour e Comments XR ELBOW 3+ VW 2020-11-06 1. Negative Universi ty of RIGHT 0 radiographs of the [facility] 16:21:21 right elbow. RL: Branch 2120 ORDERING PHYSICIAN: FENG TREADWELL CLINICAL HISTORY: fall TECHNIQUE: 3 ?views of the right elbow performed. COMPARISON: none FINDINGS: No acute fracture or dislocation is identified. No evidence of elevated fatpad to suggest joint space effusion at this time. No prominent soft tissueswelling or retained radiopaque foreign bodies are identified. No worrisomelytic/lesley tic osseous lesions are seen. [facility], Radiant Results Inft User - 11/24/2020 11:22 AM CDT ORDERING PHYSICIAN: FENG TREADWELL CLINICAL HISTORY: fall TECHNIQUE: 3 views of the right elbow performed.COMPARISO N: noneFINDINGS:No acute fracture or dislocation is identified. No evidence of elevated fatpad to suggest joint space effusion at this time. No prominent soft tissueswelling or retained radiopaque foreign bodies are identified. No worrisomelytic/lesley tic osseous lesions are seen.IMPRESSION1. Negative radiographs of the right elbow.RL: lectronically signed by Vikas Chilel DO at 11/24/2020 11:21 AM
== END 2021-02-05 14:50 | disposition home or self-care (01) ==
LOC: ER 12:17
DX: S00.83XA Contusion of other part of head, initial encounter (principal); S60.222A Contusion of left hand, initial encounter; W01.198A Fall on same level from slipping, tripping and stumbling with subsequent striking against other object, initial encounter; Y92.009 Unspecified place in unspecified non-institutional (private) residence as the place of occurrence of the external cause; E11.9 Type 2 diabetes mellitus without complications; I10 Essential (primary) hypertension; Z86.73 Personal history of transient ischemic attack (TIA), and cerebral infarction without residual deficits; Z79.82 Long term (current) use of aspirin; Z88.8 Allergy status to other drugs, medicaments and biological substances
CPT/HCPCS: 70450; 70486; 76377; 99283

== ENCOUNTER 2021-12-19 05:46 | Observation (INO) | payer OTHER ==
[2021-10-04 10:50] LABS: Absolute Lymphocytes (CBC) 1.3 K/uL (0.7-4.9); Hematocrit 34.5 % (36.0-45.0); Lymphocytes % 23.1 % (15.3-44.8); MCV 80.6 fL (80-100); RBC Red Blood Cell Count 4.28 M/uL (3.86-4.86)
[2021-10-04 11:02] LABS: Protime INR 1.05
[2021-10-04 11:06] LABS: SARS-CoV-2 Antigen Rapid Res Negative (Negative)
--- NOTE | 2021-10-04 11:13 | RAD REPORT ---
EXAM DESCRIPTION: RAD - Chest Pa And Lat (2 Views) - 10/04/2021 10:44 am CLINICAL HISTORY: Pre op pending knee replacement COMPARISON: Chest Single View dated 09/18/2020 FINDINGS: Lines: None. Lungs: No evidence of edema or pneumonia. Pleural: No significant pleural effusions or pneumothorax. Cardiac: The heart size is within normal limits. Bones: No acute fractures. Other: Prominence of the ascending thoracic aorta. IMPRESSION: No acute cardiopulmonary disease. Possible ascending thoracic aortic aneurysm. CT could confirm.
--- NOTE | 2021-10-04 12:15 | EKG ---
Test Date: 2021-10-04 Test Time: 10:23:51 Digital Music Instructor: KEVIN MEASUREMENT RESULTS: Intervals: Rate: 66 VA: 164 QRSD: 76 QT: 450 QTc: 471 [place]: P: 44 VA: 164 QRS: 17 T: 45 INTERPRETIVE STATEMENTS: Normal sinus rhythm Prolonged QT Abnormal ECG Compared to ECG 09/18/2020 12:05:36 Prolonged QT interval now present Electronically Signed On 10-04-21 12:14:56 CDT by Trung Osei
[2021-12-13 09:53] LABS: Absolute Lymphocytes (CBC) 1.2 K/uL (0.7-4.9); Hematocrit 33.1 % (36.0-45.0); MCV 79.5 fL (80-100); MPV 7.7 fL (7.6-11.3); RBC Red Blood Cell Count 4.17 M/uL (3.86-4.86)
[2021-12-13 10:00] LABS: Protime INR 1.06
[2021-12-13 10:11] LABS: Potassium 3.6 mmol/L (3.5-5.1)
[2021-12-18 09:23] LABS: SARS-CoV-2 Antigen Rapid Res Negative (Negative)
[2021-12-19] MEDS ORDERED: NA CHLORIDE 0.9% 1,000 ML ONE ×2 (06:16→09:50)
[2021-12-19] MEDS ORDERED: CEFAZOLIN 2 GM IN 0.9% NACL 2 GM/100 ML BAG ONE (06:16)
[2021-12-19] MEDS ORDERED: CELECOXIB 100 MG CAPSULE ONE (06:31)
[2021-12-19] MEDS ORDERED: GABAPENTIN 100 MG CAP ONE (06:31)
[2021-12-19] MEDS ORDERED: Oxycodone HCl/Acetaminophen 1 TAB TAB ONE (06:32)
[2021-12-19] MEDS ORDERED: ACETAMINOPHEN 500 MG TAB ONE (06:33)
[2021-12-19] MEDS ORDERED: LIDOCAINE 1% MPF 5 ML VIAL ONE (07:13)
[2021-12-19] MEDS ORDERED: dexAMETHasone 10 MG/ML VIAL ONE (07:14)
[2021-12-19] MEDS ORDERED: FENTANYL CITR 100 MCG/2 ML ONE (07:14)
[2021-12-19] MEDS ORDERED: MIDAZOLAM HCL 2 MG/2 ML INJ ONE (07:14)
[2021-12-19] MEDS ORDERED: EPINEPHRINE/PF 1 MG/ML AMP ONE (07:14)
[2021-12-19] MEDS ORDERED: BUPIVACAINE 0.25% PF 30 ML VIAL ONE (07:15)
[2021-12-19] MEDS ORDERED: TRANEXAMIC ACID 1,000 MG/10 ML VIAL IV ONE (07:50)
[2021-12-19] MEDS ORDERED: propofoL 200 MG/20 ML VIAL IV ONE (08:21)
[2021-12-19] MEDS ORDERED: KETAMINE HCL 500 MG/5 ML VIAL ONE (08:21)
[2021-12-19] MEDS ORDERED: KETOROLAC 30 MG/ML INJ ONE (08:22)
[2021-12-19] MEDS ORDERED: ONDANSETRON 4 MG/2 ML VIAL ONE (08:22)
[2021-12-19] MEDS ORDERED: LIDOCAINE 2% MPF 5 ML VIAL ONE (08:22)
[2021-12-19] MEDS ORDERED: HYDROMORPHONE HCL 1 MG/ML INJ ONE ×2 (08:23→12:25)
[2021-12-19] MEDS ORDERED: EPHEDRINE SULF 50 MG/ML VIAL ONE ×2 (08:47→09:46)
[2021-12-19] MEDS ORDERED: NS 0.9% VIAL 10 ML ONE (09:46)
[2021-12-19] MEDS ORDERED: FUROSEMIDE 20 MG TABLET PO PRN (11:13)
[2021-12-19] MEDS ORDERED: GABAPENTIN 300 MG CAP PO PRN (11:13)
[2021-12-19] MEDS ORDERED: ACETAMINOPHEN 500 MG TAB PO PRN (11:13)
--- NOTE | 2021-12-19 11:13 | P.BOP ---
Preoperative diagnosis: left knee osteoarthritis Postoperative diagnosis: same Primary procedure: left total knee arthroplasty Adding Machine Servicer: NONE,NONE Estimated blood loss: 30 cc Specimen: left knee bone remnants Findings: see dictation Anesthesia: General Complications: None Implants: [employer] 10 CR femur, F tibia w/ stem, 11 CR poly, 32 patella Fluids & blood products: per anesthesia record; TT: 79 mins @ 300 mmHg Transferred to: Recovery Room Condition: Good
[2021-12-19] MEDS ORDERED: DOCUSATE NA 100 MG CAP PO PRN (11:14)
[2021-12-19] MEDS ORDERED: ONDANSETRON 4 MG/2 ML VIAL IV PRN (11:14)
[2021-12-19] MEDS ORDERED: TRAMADOL HCL 50 MG TAB PO PRN (11:19)
[2021-12-19] MEDS: HYDROMORPHONE HCL 1 MG/ML INJ ONE ×2 (11:48→11:58)
[2021-12-19 12:15] LABS: Hematocrit 31.4 % (36.0-45.0)
--- OUTSIDE RECORDS SUMMARY | 2021-12-19 12:18 | XMS REPORT | Continuity of Care Document ---
:1955 Author Organization [facility] t Address [address] [place] [address] Care Team Providers Name Role Phone Pcp, Patient Does Not Have A Primary Care Physician [id number] Milvia Cole Attending Clinician Unavailable Duong Street Attending Clinician Unavailable Angeli Stafford Attending Clinician Unavailable Eben ROD, Feng Rich Attending Clinician Nurse, Adc Pob Immunization Attending Clinician Unavailable Jigar De MD Attending Clinician Payers Payer Name Policy Type [...] Univers droop droop 5-13 ity of 00:00: [place] [facility] Weakness Weakness Disease Active Unive rs due to due to 08-13 ity of cerebrovas cerebrovas 00:00: [place] cular cular Medical accident accident Branch Obesity Obesity Disease Active Univers (BMI (BMI 08-13 ity of 30-39.9) 30-39.9) 00:00: Medical Branch Essential Essential Disease Active Uni vers hypertensi hypertensi 08-13 it y of on on 00:00: Medical Branch Type 2 Type 2 Disease Active Univers diabetes diabetes 08-13 ity of mellitus mellitus 00:00: [place] without without 00 Medical complicati complicati Br anch on, on, without without long-term long-term current current use of use of insulin insulin Dyslipidem Dyslipidem Disease Active U nivers ia ia 08-13 ity of 00:00: [place] [facility] 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-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 00:00: [place] stroke, stroke, 00 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) Cerebral Cerebral Disease Active Unive rs edema edema 08-13 ity of 00:00: [place] [facility] Allergies, Adverse Reactions, Alerts Allergy Allergy Status Severity Reaction(s) Onset Inactive Treating Comm ents Source Name Type Date Date Clinician Cortison Propensi Active Unknown - Uni vers e (Bulk) ty to See comments -11 it y of adverse 00:00: [place] reaction 00 Medical s Branch CORTISON DRUG Active Unknown-Cmnt Un kesha E (BULK) -11 ity of 00:00: [place] [facility] Cortison Adverse Active Info Not Commo n e Reaction Available Spiri t [facility] Social History Social Habit Start Date Stop Date Quantity Comments Source Exposure to Not sure [facility] SARS-CoV-2 [place] Medical (event) Branch Alcohol intake 2020-11-24 2020-11-24 Current University of 00:00:00 00:00:00 non-drinker of [facility] alcohol Branch (finding) Sex Ass[birth year] At [birth year] Universit y of 00:00:00 00:00:00 [place] [facility] Smoking Status Start Date Stop Date Source Never smoker [facility] Medical Branch Medications Ordered Filled Start Stop Current Ordering Indication Dosage Frequency Signature Comments Components Source Medication Medication Date Date Medication? Clinician (SIG) Name Name gabapentin Yes [id number] 100mg Take 1 Univers 100 mg 8-20 9108 capsule by ity of capsule 00:00: mouth 3 [place] 00 (three) Medical times Branch daily as needed for Pain (scale 4-6) or Nausea and Vomiting (N/V). Diclofenac Yes 50mg Take 50 mg U nivers Potassium 5-15 by mouth 2 ity of 50 mg PwPk 18:19: (two) [place] [address] times Medical daily. Branch carvedilol Yes 6.25mg Take 6.25 Univers 6.25 mg 5-15 mg by ity of tablet 18:19: mouth 2 [place] 36 (two) Medical times Branch daily with meals. proMETHazin 2017- Yes 25mg Take 25 mg Univers e 25 mg 5-15 by mouth ity of tablet 18:19: every 8 [place] [address] (eight) Medical hours. Branch metFORMIN Yes 1000mg Take 1,000 Univers 1,000 mg 5-15 mg by ity of tablet 18:19: mouth 2 [place] 36 (two) Medical times Branch daily with meals. glimepiride 2017- Yes 2mg Take 2 mg U nivers 2 mg tablet 5-15 by mouth ity of 18:19: daily with [place] [address] breakfast. Medical Branch Diclofenac Yes 50mg Take 50 mg U nivers Potassium 5-15 by mouth 2 ity of 50 mg PwPk 18:19: (two) [place] times Medical daily. Branch carvedilol Yes 6.25mg Take 6.25 Univers 6.25 mg 5-15 mg by ity of tablet 18:19: mouth 2 [place] 36 (two) Medical times Branch daily with meals. proMETHazin 2018-0 Yes 25mg Take 25 mg Univers e 25 mg 5-15 by mouth ity of tablet 18:19: every 8 [place] [address] (eight) Medical hours. Branch metFORMIN Yes 1000mg Take 1,000 Univers 1,000 mg 5-15 mg by ity of tablet 18:19: mouth 2 [place] 36 (two) Medical times Branch daily with meals. glimepiride 2018-0 Yes 2mg Take 2 mg U nivers 2 mg tablet 5-15 by mouth ity of 18:19: daily with [place] 36 breakfast. Medical Branch levETIRAcet 2017-0 Yes 1000mg Take 1 Un kesha am 1,000 mg 5-15 tablet by ity of tablet 00:00: mouth 2 [place] 00 (two) Medical times Branch daily. levETIRAcet 2017-0 Yes 1000mg Take 1 Un kesha am 1,000 mg 5-15 tablet by ity of tablet 00:00: mouth 2 [place] 00 (two) Medical times Branch daily. lisinopril 0 Yes 20mg Take 1 Unive rs 20 [...] mouth [place] 00 daily. Medical Branch clopidogrel 2017-0 Yes 75mg Take 1 Univ ers 75 mg 5-12 tablet by ity of tablet 00:00: mouth [place] 00 daily. Medical Branch atorvastati Yes 20mg Take 1 Univ ers n 20 mg 5-11 tablet by ity of tablet 00:00: mouth [place] 00 every Medical evening. Branch atorvastati 0 Yes 20mg Take 1 Univ ers n 20 mg 5-11 tablet by ity of tablet 00:00: mouth [place] 00 every Medical evening. Branch ELASTIC Yes PRN pain Univer s WRIST 1-10 ity of SPLINT 00:00: [place] SUPPORT 00 Medical MISC MISC Branch ELASTIC 0 Yes PRN pain Univer s WRIST 1-10 ity of SPLINT 00:00: [place] SUPPORT 00 Medical MISC MISC Branch Atorvastati Atorvastati Yes Angeli 1 tablet Common n Calcium n Calcium [facility] Immunizations Ordered Filled Immunization Date Status Comments Tolu e Immunization Name Name SARS-COV-2 COVID-19 2020-08-11 Completed Unive rsity of PFIZER VACCINE 00:00:00 [facility] SARS-COV-2 COVID-19 2020-08-11 Completed Unive rsity of PFIZER VACCINE 00:00:00 [facility] SARS-COV-2 COVID-19 2020-07-18 Completed Unive rsity of PFIZER VACCINE 00:00:00 [facility] SARS-COV-2 COVID-19 2020-07-18 Completed Unive rsity of PFIZER VACCINE 00:00:00 [facility] Vital Signs Vital Name Observation Time Observation Value Comments Source Systolic blood 2020-11-24 15:14:00 134 mm[Hg] Univer sity of pressure [facility] Diastolic blood 2020-11-24 15:14:00 86 mm[Hg] Unive rsity of pressure [facility] Heart rate 2020-11-24 15:14:00 67 /min [facility] Body temperature 2020-11-24 15:14:00 36.94 [facility] Respiratory rate 2020-11-24 15:14:00 14 /[facility] height 2020-11-24 15:14:00 162.6 cm [facility] Body weight 2020-11-24 15:14:00 95.255 kg [facility] BMI 2020-11-24 15:14:00 36.05 kg/m2 [facility] Oxygen saturation in 2020-11-24 15:14:00 99 /min [facility] Arterial blood by [facility] Pulse oximetry [place] Procedures Procedure Date / Time Performed Performing Clinician Tolu e XR ELBOW >3 VW RIGHT 2020-11-24 15:37:33 Feng Zacarias [facility] NOTICE OF PRIVACY 2020-11-24 14:45:40 Doctor Unassigned, No Univ ersity of [place] PRACTICES Name Medical Branch SARS-COV-2 COVID-19 2020-08-11 17:02:20 Doctor Unassigned, No Un iversity of [place] VACCINE,0.3ML,IM Name Medical Branch (PFIZER) Plan of Care Planned Activity Planned Date Details Comments Source Future Scheduled 2020-12-06 INFLUENZA VACCINE Univer [facility] Test 00:00:00 (Season Ended) [code = Medic al Branch INFLUENZA VACCINE (Season Ended)] Future Scheduled 2019-10-15 Medicare Annual [facility] Test 00:00:00 Wellness Visit Medical Bran h (procedure) [code = 863688062210106] Future Scheduled 2019-10-15 Screening for [facility] Test 00:00:00 osteoporosis Medical Branch (procedure) [code = 198153513] Future Scheduled 2019-10-15 [facility]OCCAL [facility]INES [facility]00 65+ (1 of 1 - PPSV23) Medica l Branch [code = PNEUMOCOCCAL VACCINES 65+ (1 of 1 - PPSV23)] Future Scheduled 2018-08-19 Creatinine measurement U [facility] Test 00:00:00 (procedure) [code = Medical Branch 13662561] Future Scheduled 2018-08-17 Calculated low density U [facility] Test 00:00:00 lipoprotein Medical Branch cholesterol level (procedure) [code = 994268619] Future Scheduled 2018-02-17 Hemoglobin A1c [facility] Test 00:00:00 measurement Medical Branch (procedure) [code = 72701595] Future Scheduled 2007-02-26 Microalbumin [facility] Test 00:00:00 measurement, urine, Medical Branch quantitative (procedure) [code = 799494182] Future Scheduled 2004 Screening for occult Uni [facility] Test 00:00:00 blood in feces Medical [facility] h (procedure) [code = 075645277] Future Scheduled 2004 Stool DNA-based [facility] Test 00:00:00 colorectal cancer Medical Br anch screening (procedure) [code = 024609248634628] Future Scheduled 2004 Flexible fiberoptic [facility] Test 00:00:00 sigmoidoscopy Medical Branch (procedure) [code = 10672843] Future Scheduled 2004 Screening for [facility] Test 00:00:00 malignant neoplasm of Medica l Branch colon (procedure) [code = 384924613] Future Scheduled 2004 Screening for [facility] Test 00:00:00 malignant neoplasm of Medica l Branch colon (procedure) [code = 611861620] Future Scheduled 2004 [facility] Vaccine (SHINGRIX) (1 Medica l Branch of 2) [code = Zoster Recombinant Vaccine (SHINGRIX) (1 of 2)] Future Scheduled 1994 Screening for [facility] Test 00:00:00 malignant neoplasm of Medica l Branch breast (procedure) [code = 326641153] Future Scheduled 1973 [facility]Tdap,and Td [facility] Vaccines (1 - Tdap) Medical Branch [code = DTaP,Tdap,and Td Vaccines (1 - Tdap)] Future Scheduled 1972 Diabetic foot [facility] Test 00:00:00 examination Medical Branch (regime/therapy) [code = 411763590] Future Scheduled 1972 [facility]atitis C [facility]00 (procedure) [code = Medical Branch 496558624] Future Scheduled 1966 [facility]00 (procedure) [code = Medical Branch 536350632] Future Scheduled 1964 [facility]00 (procedure) [code = Medical Branch 915557902] Encounters Start End Encounter Admission Attending Care Care Encounter Source Date/Time Date/Time Type Type Clinicians Facility Department ID 2021-10-03 Outpatient STLMLC STLC [id number] Common 09:51:01 [facility] 2021-10-02 Outpatient Cole, Na STLC STLC [id number] 2 Common 09:49:00 [facility] 2021-08-22 Outpatient Cole, Na STLMLC STLMLC [id number] 2 Common 09:25:04 [facility] 2021-06-29 Outpatient Cole, Na STLMLC STLMLC [id number] 2 Common 10:22:01 [facility] 2021-05-02 Outpatient Cole, Na STLC STLMLC [id number] 2 Common 13:44:03 [facility] 2021-05-02 Outpatient Cole, Na STLMLC STLMLC [id number] Common 13:09:22 [id number] [facility] 2021-05-02 Outpatient Cole, Na STLMLC STLMLC [id number] 2 Common 13:03:58 [id number] [facility] 2021-05-02 Outpatient Cole, Na STLMLC STLMLC [id number] 2 Common 12:54:27 [id number] [facility] 2021-05-02 Outpatient Cole, Na STLMLC STLMLC [id number] 2 Common 12:52:19 [id number] [facility] 2021-05-02 Outpatient Cole, Na STLMLC STLMLC [id number] 2 Common 12:51:48 [id number] [facility] 2021-05-02 Outpatient Cole, Na STLMLC STLMLC [id number] 2 Common 12:49:33 [id number] [facility] 2021-05-02 Outpatient Cole, Na STLMLC STLMLC [id number] 2 Common 12:26:04 [id number] [facility] 2021-05-02 Outpatient Cole, Na STLMLC STLMLC [id number] 2 Common 12:16:19 [id number] [facility] 2021-05-[address], Kin STLMLC STLMLC [id number] Common 12:08:48 [id number] [facility] 2021-05-02 Outpatient Millender, STLMLC STLMLC [id number] Common 11:52:05 Angeli [id number] [facility] 2021-05-02 Outpatient Millender, STLMLC STLMLC [id number] Common 11:48:52 Angeli [id number] [facility] 2021-05-02 Outpatient Millender, STLMLC STLMLC [id number] Common 11:48:17 Angeli [id number] [facility] 2021-05-02 Outpatient Millender, STLMLC STLMLC [id number] Common 11:43:51 Angeli [id number] [facility] 2021-05-02 Outpatient Millender, STLMLC STLMLC [id number] Common 11:04: Angeli [id number] [facility] 2021-11-08 2021-11-08 ambulatory STLMLC STLMLC [id number] Common 00:00:00 00:00:00 [facility] 2021-10-04 2021-10-04 ambulatory STLMLC STLMLC [id number] Common 00:00:00 00:00:00 [facility] 2021-10-04 2021-10-04 ambulatory STLMLC STLMLC [id number] Common 00:00:00 00:00:00 [facility] 2021-10-04 2021-10-04 ambulatory STLMLC STLMLC [id number] Common 00:00:00 00:00:00 [facility] 2021-10-03 2021-10-03 ambulatory STLMLC STLMLC [id number] Common 00:00:00 00:00:00 [facility] 2021-10-02 2021-10-02 ambulatory STLMLC STLMLC [id number] Common 00:00:00 00:00:00 [facility] 2021-09-19 2021-09-19 ambulatory STLMLC STLMLC [id number] Common 00:00:00 00:00:00 [facility] 2021-07-11 2021-07-11 ambulatory STLMLC STLMLC [id number] Common 00:00:00 00:00:00 [facility] 2021-07-04 2021-07-04 ambulatory STLMLC STLMLC [id number] Common 00:00:00 00:00:00 [facility] 2021-06-21 2021-06-21 ambulatory STLMLC STLMLC [id number] Common 00:00:00 00:00:00 [facility] 2021-01-24 2021-01-24 Outpatient STLMLC STLMLC [id number] Common 00:00:00 00:00:00 [facility] 2021-01-16 2021-01-16 Outpatient STLMLC STLMLC [id number] Common 00:00:00 00:00:00 [facility] 2020-12-29 2020-12-29 Outpatient STLMLC STLMLC [id number] Common 00:00:00 00:00:00 [facility] 2020-12-06 2020-12-06 Outpatient STLMLC STLMLC [id number] Common 00:00:00 00:00:00 [facility] 2020-11-24 2020-11-24 [facility] [id number] Univers 10:15:00 11:54:00 Feng [id number] [id number] [place] [address] Branch 2020-11-24 2020-11-24 Emergency X [facility] ERT [id number] Univers 09:45:00 09:45:00 ity [facility] 2020-11-21 2020-11-21 Outpatient STLMLC STLMLC [id number] Common 00:00:00 00:00:00 [facility] 2020-11-21 2020-11-21 Outpatient STLMLC STLMLC [id number] Common 00:00:00 00:00:00 [facility] 2020-11-02 2020-11-02 Outpatient STLMLC STLMLC [id number] Common 00:00:00 00:00:00 [facility] 2020-10-31 2020-10-31 Outpatient STLMLC STLMLC [id number] Common 00:00:00 00:00:00 [facility] 2020-09-21 2020-09-21 Outpatient STLMLC STLMLC [id number] Common 00:00:00 00:00:00 [facility] 2020-09-01 2020-09-01 Outpatient STLMLC STLMLC [id number] Common 00:00:00 00:00:00 [facility] 2020-08-25 2020-08-25 Outpatient STLMLC STLMLC [id number] Common 00:00:00 00:00:00 [facility] 2020-08-25 2020-08-25 Outpatient STLMLC STLMLC [id number] Common 00:00:00 00:00:00 [facility] 2020-08-21 2020-08-21 Outpatient STLMLC STLMLC [id number] Common 00:00:00 00:00:00 [facility] 2020-07-26 2020-07-26 Outpatient STLMLC STLMLC [id number] Common 00:00:00 00:00:00 [facility] 2020-07-20 2020-07-20 Outpatient STLMLC STLMLC [id number] Common 00:00:00 00:00:00 [facility] 2020-07-11 2020-07-11 Outpatient STLMLC STLMLC [id number] Common 00:00:00 00:00:00 [facility] 2020-06-08 2020-06-08 Outpatient STLMLC STLMLC [id number] Common 00:00:00 00:00:00 [facility] 2020-04-11 2020-04-11 Outpatient STLMLC STLMLC [id number] Common 00:00:00 00:00:00 [facility] 2020-01-06 2020-01-06 Outpatient STLMLC STLMLC [id number] Common 00:00:00 00:00:00 [facility] 2020-01-04 2020-01-04 Outpatient STLMLC STLMLC [id number] Common 00:00:00 00:00:00 [facility] 2019-12-31 2019-12-31 Outpatient STLMLC STLMLC [id number] Common 00:00:00 00:00:00 [facility] 2019-12-30 2019-12-30 Outpatient STLMLC STLMLC [id number] Common 00:00:00 00:00:00 [facility] 2019-12-21 2019-12-21 Outpatient STLMLC STLMLC [id number] Common 00:00:00 00:00:00 [facility] 2019-12-16 2019-12-16 [id number] Common 16:48:00 16:48:[address] [facility] 2019-12-07 2019-12-07 [facility] [id number] Common 09:01:00 09:01:[address] [facility] 2019-09-29 2019-09-29 [facility] [id number] Common 16:06:00 16:06:[address] [facility] 2019-06-15 2019-06-15 [facility] [id number] Common 13:49:00 13:49:[address] [facility] 2019-05-05 2019-05-05 [facility] [id number] Common 11:00:00 11:00:[address] [facility] 2019-02-23 2019-02-23 [facility] [id number] Common 11:46:00 11:46:[address] [facility] 2018-06-04 2018-06-04 [facility] [id number] Common 11:45:00 11:45:[address] [facility] 2017-12-22 2017-12-22 [facility] [id number] Common 11:56:00 11:56:[address] [facility] 2017-12-04 2017-12-04 [facility] [id number] Common 09:00:00 09:00:[address] [facility] 2017-12-01 2017-12-01 [facility] [id number] Common 11:10:00 11:10:[address] [facility] 2017-09-11 2017-09-11 [facility] [id number] Common 14:57:00 14:57:00 t [facility] 2017-09-04 2017-09-04 Outpatient Soy Oliviert [id number] Common 14:14:00 14:14:00 t [facility] Results Test Description Test Time Test Comments Results Result Comments Source COMPREHENSIVE METABOLIC PANEL 2021-11-08 05:14:21 Test Item Value Reference Range Interpretation Comme nts GLUCOSE (test code = 2217) 126 MG/DL 70-99 H BUN (test code = 2208) 15 MG/DL 8-23 CREATININE (test code = 0.72 MG/DL 0.60-1.30 2213) eGFR (2020 CKD-EPI) (test 92 ML/MIN/1.73 >60 code = 46669) CALC BUN/CREAT (test code = 21 RATIO 10-02) SODIUM (test code = 223) 143 MEQ/L 133-146 POTASSIUM (test code = 2228) 3.9 MEQ/L 3.5-5.4 CHLORIDE (test code = 221) 103 MEQ/L 95-107 CARBON DIOXIDE (test code = 29 MEQ/L 2205) CALCIUM (test code = 2209) 9.3 MG/DL 8.5-10.5 PROTEIN, TOTAL (test code = 7.0 G/DL 6.1-8.3 2228) ALBUMIN (test code = 2201) 4.6 G/DL 3.5-5.2 CALC GLOBULIN (test code = 2.4 G/DL 1.9-3.7 2239) CALC A/G RATIO (test code = 1.9 RATIO 1.0-2.6 2233) BILIRUBIN, TOTAL (test code 0.5 MG/DL See_Comment [Automated message] The = 2206) system which ge nerated this result transmit ely reference range: <=1.2. T he reference range was not u sed to interpret this result as normal/abnormal . ALKALINE PHOSPHATASE (test 90 U/L 40-142 code = 2204) AST (test code = 2218) 36 U/L 9-40 ALT (test code = 2219) 18 U/L 5-40 LIPID [id number] 05:14:21 Test Item Value Reference Range Interpretation Comments CHOLESTEROL (test 146 MG/DL <200 code = 2210) TRIGLYCERIDES (test 221 MG/DL <150 H code = 2232) HDL CHOLESTEROL (test 39 MG/DL >39 L code = 2220) CALC LDL CHOL (test 76 MG/DL <100 NOTE: C ALCULATED LDL code = 2237) IS BASED ON MARIELENA-CASTELLANOS METHOD WHICHINCLUDES ADJUSTABLE TRIGLYCERIDE:VL DL CHOLESTEROL RAT IO.THIS FACTOR VARIES B Y MEASURED TRIGLY CERIDE AND NON-HDLCHOL ESTEROL CONCENTRATIONS WITH INCREASED CALCU LATED LDL SEENIN HIGH ER TRIGLYCERIDE OR LOWER NON-HDL SPECIME NS. FOR MOREINFORMATION , SEE CLIENT ANNOUNCE MENT AT [email or web address] [email or web address] RATIO LDL/HDL 1.95 RATIO <3.22 UNLESS O THERWISE (test code = 2238) INDICATED , ALL TESTING PERFORMED [facility]. [address] [place] [id number] [place] [address] REDD DIRECTOR: ТАТЬЯНА SAINI M.D. CLIA NUMBER [id number] CAP ACCREDITATION N O. [id number] HEMOGLOBIN [id number] 04:14:00 Test Item Value Reference Range Interpretation Comments HEMOGLOBIN A1c (test code = 65381) 5.7 % 4.2-5.6 H CBC W/AUTO DIFF WITH [id number] 03:18:59 Test Item Value Reference Range Interpretation Comments WBC (test code = 4.6 K/UL 3.5-11.0 1001) RBC (test code = 4.09 M/UL 3.80-5.40 1002) HEMOGLOBIN (test code 11.7 G/DL 11.5-15.5 = 1003) HEMATOCRIT (test code 34.4 % 34.0-45.0 = 1004) MCV (test code = 84.1 fL 80.0-99.0 1005) MCH (test code = 28.6 PG 25.0-33.0 1006) MCHC (test code = 34.0 G/DL 31.0-36.0 1007) RDW (test code = 13.6 % 11.5-15.0 1038) NEUTROPHILS (test 59.4 % code = 1008) LYMPHOCYTES (test 26.3 % code = 1010) MONOCYTES (test code 8.9 % = 1011) EOSINOPHILS (test 4.1 % code = 1012) BASOPHILS (test code 0.9 % = 1013) IMMATURE GRANULOCYTES 0.4 % (test code = 1036) NUCLEATED RBCS (test 0.0 /100 WBC'S See_Comment [Aut omated code = 1065) message] The sy stem which generated this result transmitted reference range : 0.0. The refere nce range was not u sed to interpret th is result as normal/abnormal . PLATELET COUNT (test 238 K/UL 130-400 code = 1015) ABSOLUTE NEUTROPHILS 2.73 K/UL 1.50-7.50 (test code = 1066) ABSOLUTE LYMPHOCYTES 1.21 K/UL 1.00-4.00 (test code = 1067) ABSOLUTE MONOCYTES 0.41 K/UL 0.20-1.00 (test code = 1068) ABSOLUTE EOSINOPHILS 0.19 K/UL 0.00-0.50 (test code = 1040) ABSOLUTE BASOPHILS 0.04 K/UL 0.00-0.20 (test code = 1069) ABS IMMATURE 0.02 K/UL 0.00-0.10 GRANULOCYTES (test code = 1020) ABS NUCLEATED RBCS 0.00 K/UL 0.00-0.11 (test code = 43654) CULTURE, [id number] 08:47:35SPECIMEN NUMBER: [id number] CULTURE, URINE SPECIMEN NUMBER: [id number] SPECIMEN COMMENT: URINE SOURCE:URINE REPORT STATUS: FINAL FINAL REPORT: 08/04/2021 50-100,000 CFU/ML UROGENITAL ANN-MARIE PRESENT NO COM MON PATHOGENS UNLESS OTHERWISE INDICATED, ALL TESTING PERFORMED [facility] [address] [place] [address] DIETARY AIDE TEACHER: ТАТЬЯНА SAINI M.D. CLIA NUMBER [id number]. [id number] LIPID [id number] 06:36:23 Test Item Value Reference Range Interpretation Comments CHOLESTEROL (test 150 MG/DL <200 code = 2210) TRIGLYCERIDES (test 173 MG/DL <150 H code = 2232) HDL CHOLESTEROL (test 47 MG/DL >39 code = 2220) CALC LDL CHOL (test 76 MG/DL <100 NOTE: C ALCULATED LDL code = 2237) IS BASED ON MARIELENA-CASTELLANOS METHOD WHICHINCLUDES ADJUSTABLE TRIGLYCERIDE:VL DL CHOLESTEROL RAT IO.THIS FACTOR VARIES B Y MEASURED TRIGLY CERIDE AND NON-HDLCHOL ESTEROL CONCENTRATIONS WITH INCREASED CALCU LATED LDL SEENIN HIGH ER TRIGLYCERIDE OR LOWER NON-HDL SPECIME NS. FOR MOREINFORMATION , SEE CLIENT ANNOUNCE MENT AT [email or web address] [email or web address] RATIO LDL/HDL 1.62 RATIO <3.22 UNLESS O THERWISE (test code = 2238) INDICATED , ALL TESTING PERFORMED [facility], [facility]. [address] [place], [place] [id number] [place] [address] DIRECTOR: ТАТЬЯНА SAINI M.D. CLIA NUMBER [id number] CAP ACCREDITATION N O. [id number] SCR MAMM BILATERAL CECILIA CAD [id number] 09:22:59 Name: Carm[place] : 1955 Sex: F - SCR MAMM BILATERAL CECILIA CAD DIGITALBILATERAL DIGITAL SCREENING MAMMOGRAM 3D/2D WITH CAD: 06/29/2021LINICAL: Asymptomatic. Digital breast tomosynthesis was performed in addition to routine CC and MLO views. Current mammographic images were evaluated by [employer] CAD (computer-aided detection) software. Comparison is made to exam dated 06/28/2013 mammogram - [facility]. The tissue of both breasts is heterogeneously dense. This may lower the sensitivity of mammography. There are benign appearing vascular calcifications and calcifications in both breasts. There also are benign appearing densities in both breasts. Additionally, there are benign appearing nodules in the right breast. Additionally, there alsois a benign appearing nodule in the left breast. No suspicious mass, architectural distortion, malignant type calcification, or lymph node abnormality detected. Breast architecture is stable compared to prior exams.IMPRESSION: BENIGNThere is no mammographic evidence of malignancy. Resume annual screening mammography in one year. Meseret Mayers M.D. sc/penrad:07/16/2021 09:22:59 Radio [employer] Teacher: Sonia Parson MM, [facility] Mammographyletter sent: BIRADS 1-2 Normal Mammogram BI-RADS: 2 BenignOCCULT BLD,FECAL,IMMUNOASSAY [id number] 10:00:34 Test Item Value Reference Range Interpretation Comments OCCULT BLD, FECAL NEGATIVE NEGATIVE UNLESS OT HERWISE (test code = 90938) INDICATE D, ALL TESTING [facility] Yn[facility]. [address] [place] [id number] [facility]LY [facility] DIRECTOR: ТАТЬЯНА SAINI M.D. [place] NUMBER [id number] [facility] ACCREDITATION N O. [id number] HEPATITIS PANEL, [id number] 08:49:41 Test Item Value Reference Range Interpretation Comments HEPATITIS A IgM (test NON-REACTIVE NON-REACTIVE code = 60330) HEPATITIS B CORE IgM NON-REACTIVE NON-REACTIVE (test code = 4644) HEPATITIS B SURF AG NON-REACTIVE NON-REACTIVE (test code = 2739) HEPATITIS C ANTIBODY NON-REACTIVE NON-REACTIVE (test code = 4675) INTERPRETATION (NOTE) Hepatitis A HEPATITIS A: (test code sero logy shows no = 2552) evidence of acu te hepatitis A. INTERPRETATION (NOTE) Hepatitis B HEPATITIS B: (test code sero logy shows no = 86354) evidence of acu te hepatitis B and no indication of exposure to hepatitis B vir us in the previous juan josé eight months. INTERPRETATION (NOTE) Hepatitis C HEPATITIS C: (test code sero logy shows no = 73211) evidence of exposure to hepatitisC viru s at this time. I t can take up to 12 months after exposure tothe hepatitis C vir us for antibodies to become detectab le in the blood in certain patient s. HIV 1/2 4TH GEN, RFLX [id number] 08:49:41 Test Item Value Reference Range Interpretation Comments HIV 1/2 4TH GEN, NON-REACTIVE NON-REACTIVE UNLESS OTH ERWISE RFLX CONF (test INDICATED, A LL TESTING code = 3514) [facility] [address] [place] [id number] 4 LABORATORY DIRE CTOR: Giovanna CHAVARRIA. ROSALINDA NUMBER [id number] CAP ACCREDITATION N O. [id number] COMPREHENSIVE METABOLIC [id number] 07:32:03 Test Item Value Reference Range Interpretation Comments GLUCOSE (test code = 105 MG/DL 70-99 H 2216) BUN (test code = 19 MG/DL 8-23 2207) CREATININE (test 0.68 MG/DL 0.60-1.30 code = 2214) eGFR (2020 CKD-EPI) 96 ML/MIN/1.73 >60 (test code = 73438) CALC BUN/CREAT (test 28 RATIO 6-28 code = 2235) SODIUM (test code = 145 MEQ/L [phone]) POTASSIUM (test code 4.1 MEQ/L 3.5-5.4 = 2227) CHLORIDE (test code 103 MEQ/L 95-107 = 221) CARBON DIOXIDE (test 24 MEQ/L 19-31 code = 2206) CALCIUM (test code = 9.1 MG/DL 8.5-10.5 2208) PROTEIN, TOTAL (test 6.9 G/DL 6.1-8.3 code = 222) ALBUMIN (test code = 4.4 G/DL 3.5-5.2 2200) CALC GLOBULIN (test 2.5 G/DL 1.9-3.7 code = 2240) CALC A/G RATIO (test 1.8 RATIO 1.0-2.6 code = 2234) BILIRUBIN, TOTAL 0.6 MG/DL See_Comment [Automated message] (test code = 2207) The syste m which generated this result transmit ely reference range : <=1.2. The refe rence range was not u sed to interpret th is result as normal/abnormal . ALKALINE PHOSPHATASE 76 U/L 40-142 (test code = 2204) AST (test code = 38 U/L 9-40 2217) ALT (test code = 20 U/L 5-40 2218) LIPID [id number] 07:32:03 Test Item Value Reference Range Interpretation Comments CHOLESTEROL (test 157 MG/DL <200 code = 2210) TRIGLYCERIDES (test 174 MG/DL <150 H code = 2232) HDL CHOLESTEROL (test 43 MG/DL >39 code = 2220) CALC LDL CHOL (test 87 MG/DL <100 NOTE: C ALCULATED LDL code = 2237) IS BASED ON MARIELENA-CASTELLANOS METHOD WHICHINCLUDES ADJUSTABLE TRIGLYCERIDE:VL DL CHOLESTEROL RAT IO.THIS FACTOR VARIES B Y MEASURED TRIGLY CERIDE AND NON-HDLCHOL ESTEROL CONCENTRATIONS WITH INCREASED CALCU LATED LDL SEENIN HIGH ER TRIGLYCERIDE OR LOWER NON-HDL SPECIME NS. FOR MOREINFORMATION , SEE CLIENT ANNOUNCE MENT AT [email or web address] [email or web address] RATIO LDL/HDL 2.02 RATIO <3.22 (test code = 2238) HEMOGLOBIN [id number] 04:44:57 Test Item Value Reference Range Interpretation Comments HEMOGLOBIN A1c (test code = 88373) 5.9 % 4.2-5.6 H CBC W/AUTO DIFF WITH [id number] 04:12:14 Test Item Value Reference Range Interpretation Comments WBC (test code = 4.7 K/UL 3.5-11.0 1001) RBC (test code = 4.29 M/UL 3.80-5.40 1002) HEMOGLOBIN (test code 12.0 G/DL 11.5-15.5 = 1003) HEMATOCRIT (test code 34.5 % 34.0-45.0 = 1004) MCV (test code = 80.4 fL 80.0-99.0 1005) MCH (test code = 28.0 PG 25.0-33.0 1006) MCHC (test code = 34.8 G/DL 31.0-36.0 1007) RDW (test code = 14.0 % 11.5-15.0 1038) NEUTROPHILS (test 61.5 % code = 1008) LYMPHOCYTES (test 26.6 % code = 1010) MONOCYTES (test code 8.0 % = 1011) EOSINOPHILS (test 2.7 % code = 1012) BASOPHILS (test code 0.8 % = 1013) IMMATURE GRANULOCYTES 0.4 % (test code = 1036) NUCLEATED RBCS (test 0.0 /100 WBC'S See_Comment [Aut omated code = 1065) message] The sy stem which generated this result transmitted reference range : 0.0. The refere nce range was not u sed to interpret th is result as normal/abnormal . PLATELET COUNT (test 245 K/UL 130-400 code = 1015) ABSOLUTE NEUTROPHILS 2.90 K/UL 1.50-7.50 (test code = 1066) ABSOLUTE LYMPHOCYTES 1.26 K/UL 1.00-4.00 (test code = 1067) ABSOLUTE MONOCYTES 0.38 K/UL 0.20-1.00 (test code = 1068) ABSOLUTE EOSINOPHILS 0.13 K/UL 0.00-0.50 (test code = 1040) ABSOLUTE BASOPHILS 0.04 K/UL 0.00-0.20 (test code = 1069) ABS IMMATURE 0.02 K/UL 0.00-0.10 GRANULOCYTES (test code = 1020) ABS NUCLEATED RBCS 0.00 K/UL 0.00-0.11 (test code = 99003) XR ELBOW 3+ VW [id number] 16:21:21 1. Negative radiographs of the right elbow. RL: 212 ORDERING PHYSICIAN: FENG ZACARIAS CLINICAL HISTORY: fall TECHNIQUE: 3 ?views of the right elbow performed. COMPARISON: none FINDINGS: No acute fracture or dislocation is identified. No evidence of elevated fatpad to suggest joint space effusion at this time. No prominent soft tissueswelling or retained radiopaque foreign bodies are identified. No worrisomelytic/blastic osseous lesions are seen. [facility], Radiant Results Inft User - 11/24/2020 11:22 AM CDT ORDERING PHYSICIAN: FENG ZACARIAS CLINICAL HISTORY: fall TECHNIQUE: 3views of the right elbow performed.COMPARISON: noneFINDINGS:No acute fracture or dislocation is ident ified. No evidence of elevated fatpad to suggest joint space effusion at this time. No prominent soft tissueswelling or retained radiopaque foreign bodies are identified. No worrisomelytic/blastic osseous lesions are seen.IMPRESSION1. Negative radiographs of the right elbow.RL: 1 [facility]
[2021-12-19] MEDS ORDERED: MORPHINE 2 MG/ML SYR IV PRN (12:37)
--- NOTE | 2021-12-19 12:56 | RAD REPORT ---
EXAM DESCRIPTION: RAD - Knee Left 2 View - 12/19/2021 12:37 pm CLINICAL HISTORY: Post Op COMPARISON: No comparisons FINDINGS: Left total knee prosthesis has been placed. No unexpected bone or implant finding. Skin st aples are present anteriorly. Air and soft tissue thickening changes along the distal thigh and knee anteriorly are expected postsurgical changes.No abnormal joint fluid collection. IMPRESSION: Postop left total knee replacement. No unexpected bone or implant finding.
[2021-12-19 12:58] VITALS: BMI 33.7
[2021-12-19] MEDS ORDERED: PNEUMOCOCCAL VACCINE 0.5 ML IMVAC ONE (14:00)
[2021-12-19] MEDS: CEFAZOLIN SODIUM 2 GM in NA CHLORIDE 0.9% 100 ML IVPB SCH ×2 (14:06→21:24)
[2021-12-19] MEDS: METFORMIN HCL 500 MG TAB PO SCH (17:11)
[2021-12-19] MEDS: carvediloL 6.25 MG TAB PO SCH (17:11)
--- NOTE | 2021-12-19 19:36 | P.OP ---
Preoperative diagnosis: left knee osteoarthritis Postoperative diagnosis: same Primary procedure: left total knee arthroplasty Anesthesia: general Estimated blood loss: 30 cc Specimen: left knee bone remnants Findings: see dictation Operative Technique: Indication For Procedure: Carmenza is an 66 year-old female presenting to my clinic with signs, symptoms and x-ray findings consistent with a severe left knee osteoarthritis. I discussed with the patient at length risks and benefits associated with operative and nonoperative treatment. She had failed conservative treatment measures and had significant difficulties with ADLs secondary to her pain. We discussed operative treatment and elected to proceed with left total knee arthroplasty. She expressed understanding and elected to proceed with operative treatment. Description Of Procedure: After informed consent was obtained, the patient was identified in the preoperative holding area. The left lower extremity was marked. The patient was then taken to the PACU where he underwent a left lower extremity adductor canal block performed by Anesthesia. She was then taken to the operating room, transferred to the operating table in supine fashion, and placed under general anesthesia. Her left lower extremity was then prepped and draped in usual sterile fashion. A time-out was initiated. The correct patient and procedure were confirmed and identified. The patient did receive her preoperative prophylactic antibiotics. The left lower extremity was then exsanguinated and tourniquet was inflated to 300 mmHg. Approximately 15 cm longitudinal incision was made centered over the anterior aspect of the left knee. Dissection was then taken to the extensor mechanism and a medial parapatellar arthrotomy was performed. The patella was everted and dislocated laterally and the knee was flexed in the fat pad. She had a significant valgus deformity adding to the complexity of the case. Medial lateral meniscus and ACL were all excised exposing the distal femur. Excess hypertrophic synovium was also excised within the suprapatellar pouch. The patient had an MRI of the left knee preoperatively for surgical planning and creation of cutting blocks. The cutting block was then placed over the distal femur and pins were then placed. The distal femoral cutting block was then placed over the pins. An vinicio wing was then used to ensure proper depth cut and the distal femur was then cut. The chamfer cutting guide was then placed over the distal end of the femur. Anterior, posterior cuts as well as anterior and posterior chamfer cuts were then made again confirming proper depth of the cut using an Vinicio wing. Excess bone remnants were then sent to pathology for further evaluation. Next, attention was taken to the proximal tibia. A tibial jig and tibial cutting block was then placed on proximal aspect of the right tibia and locked into position. Pins were then placed and alignment guide was then used to confirm proper alignment of the cut and then coronal and sagittal planes. Once this was confirmed, the cutting jig was placed over the pins and the proximal tibia was cut. Sizing trays were then selected and size 10 mm spacer was used and there was good overall balance in flexion and extension. Next, the trial implants were then placed using the size 10 standard CR femur and a size F tibia with a 11 mm poly. There was overall good range of motion and good stability Trial implants were then removed. The wound was then irrigated thoroughly with normal saline and the knee was then injected with 30 cc of 0.5% Marcaine both in the posterior capsule and mediallateral gutters as well as quadriceps tendon and periosteum. The tibia was then punched. The femur was drilled. The cement was then prepared on the back table. Cement was then placed first on the tibial surface followed by size F tibia with a stem given her obesity to add to stabilization. Excess cement was removed with Hershey elevators. Size 10 standard CR femur was then placed on the distal femur after cement was placed on the distal femur. Excess cement was then removed and a size 11 mm trial poly was then placed. The knee was held in extension as the cement hardened. Undersurface of the patella was prepared debriding osteophytes using rongeurs as well as osteophytes had been debrided off the proximal tibia with rongeurs and osteotomes to aid with the medial tightness. Cement was placed on the undersurface of the patella after it was cut and a size 32 patella was placed. Once the cement was hardened, the knee was ranged, there was good overall stability both in flexion, extension and as well as stability with varus and valgus stresses. Trial poly was then removed and a size 11 mm CR poly was then placed and locked into position. The knee was then ranged again. There was good overall range of motion both for flexion and extension with good stability. The wound was then irrigated again thoroughly with normal saline using pulse lavage. Tourniquet was let down. Hemostasis was achieved using Bovie electrocautery. Extensor mechanism was then approximated using a #1 Vicryl bothin interrupted and running fashion. The fascia was then approximated using 0 Vicryl. Subcutaneous tissue was approximated with a 2-0 Vicryl. Skin was approximated using jennifer. Sterile dressings were applied. The patient was awakened and transferred back in stable condition Complications: None Implants: [employer] 10 CR femur, F tibia w/ stem, 32 patella, 11 CR poly Fluids & blood products: per anesthesia record; TT: 79 mins @ 300 mmHg Transferred to: Recovery Room Condition: Good
[2021-12-19] MEDS ORDERED: ATORVASTATIN 20 MG TAB PO SCH (21:00)
[2021-12-19] MEDS ORDERED: SERTRALINE HCL 50 MG TAB PO SCH (21:00)
[2021-12-19] MEDS ORDERED: DONEPEZIL HCL 5 MG TAB PO SCH (21:00)
[2021-12-19] MEDS: levETIRAcetam 500 MG TAB PO SCH (21:12)
[2021-12-19] MEDS: MEMANTINE HCL 10 MG TABLET PO SCH (21:12)
[2021-12-19] MEDS: HYDROCODONE/APAP 7.5/325 MG TAB PO PRN (21:19)
[2021-12-19] MEDS: lisinopriL 20 MG TAB PO SCH (21:20)
[2021-12-20] MEDS: CEFAZOLIN SODIUM 2 GM in NA CHLORIDE 0.9% 100 ML IVPB SCH (05:54)
[2021-12-20] MEDS: ENOXAPARIN 30 MG/0.3 ML SQ SCH ×2 (05:54→17:20)
[2021-12-20 06:28] LABS: Hematocrit 27.3 % (36.0-45.0)
[2021-12-20] MEDS: HYDROCODONE/APAP 7.5/325 MG TAB PO PRN ×3 (06:39→17:20)
[2021-12-20] MEDS ORDERED: GLIMEPIRIDE 2 MG TABLET PO SCH (08:00)
[2021-12-20] MEDS ORDERED: CLOPIDOGREL 75 MG TABLET PO SCH (09:00)
[2021-12-20] MEDS ORDERED: AMLODIPINE 10 MG TAB PO SCH (09:00)
[2021-12-20] MEDS ORDERED: CELECOXIB 100 MG CAPSULE PO SCH (09:00)
[2021-12-20 09:42] VITALS: O2SAT 100
[2021-12-20] MEDS: carvediloL 6.25 MG TAB PO SCH ×2 (11:02→17:00)
[2021-12-20] MEDS: lisinopriL 20 MG TAB PO SCH (11:02)
[2021-12-20] MEDS: MEMANTINE HCL 10 MG TABLET PO SCH (11:02)
[2021-12-20] MEDS: levETIRAcetam 500 MG TAB PO SCH (11:02)
[2021-12-20] MEDS: METFORMIN HCL 500 MG TAB PO SCH ×2 (11:02→17:00)
[2021-12-20 16:18] VITALS: BP 123/65; TEMP 98
--- NOTE | 2021-12-20 16:29 | P.DS ---
Admission Date: 12/19/21 Discharge Date: 12/20/21 Disposition: DC HOME/HOME HEALTH CARE Discharge Condition: GOOD Consultations: none Procedures: L TKA 12/19/2021 Brief History of Present Illness: Carmenza is a 66-year-old female status post left total knee arthroplasty on December 19, 2021. Patient was at admitted to the floor postop for mobilization and pain control. Hospital Course: Patient was admitted to floor in stable condition. Her pain was controlled while on the floor and physical therapy was consulted today with mobilization. Patient mobilize safely on day of discharge. She was given Lovenox for DVT prophylaxis while in the hospital and was discharged with Xarelto. She will follow-up in 2 weeks for wound check and staple removal. She may be weightbearing as tolerated on the left lower extremity. Vital Signs/Physical Exam: Temp Pulse Resp BP Pulse Ox 98.0 F 78 16 123/65 96 12/20/21 16:00 12/20/21 16:00 12/20/21 16:00 12/20/21 16:00 12/20/21 16:00 Laboratory Data at Discharge: WBC 5.90 K/uL (4.3-10.9) 12/13/21 09:40 Hgb 9.6 g/dL (12.0-15.0) L D 12/20/21 05:51 Hct 27.3 % (36.0-45.0) L 12/20/21 05:51 Plt Count 251 K/uL (152-406) 12/13/21 09:40 PT 11.7 SECONDS (9.5-12.5) 12/13/21 09:40 INR 1.06 12/13/21 09:40 APTT 33.0 SECONDS (24.3-36.9) 12/13/21 09:40 Sodium 142 mmol/L (136-145) 12/13/21 09:40 Potassium 3.6 mmol/L (3.5-5.1) 12/13/21 09:40 BUN 15 mg/dL (7-18) 12/13/21 09:40 Creatinine 0.71 mg/dL (0.55-1.3) 12/13/21 09:40 Glucose 107 mg/dL (74-106) H 12/13/21 09:40 Home Medications: Acetaminophen [Tylenol Extra Strength] 500 mg PO PRN PRN 10/04/21 Amlodipine Besylate 10 mg PO DAILY 10/04/21 Atorvastatin Calcium [Lipitor*] 20 mg PO BEDTIME 10/04/21 Cholecalciferol (Vitamin D3) [Vitamin D 5,000 IU Cap*] 5,000 unit PO DAILY 10/04/21 Clopidogrel Bisulfate [Plavix*] 75 mg PO DAILY 10/04/21 Cyanocobalamin [Vitamin B-12*] 1,000 mcg PO DAILY 10/04/21 Docosahexanoic AC/Epa [Fish Oil 1,000 MG*] 1,000 mg PO DAILY 10/04/21 Donepezil HCl 15 mg PO DAILY 10/04/21 Furosemide [Lasix*] 20 mg PO DAILYPRN PRN 10/04/21 Gabapentin 300 mg PO PRN PRN 10/04/21 Glimepiride 4 mg PO DAILY 10/04/21 Levetiracetam [Keppra] 500 mg PO BID 10/04/21 Lisinopril [Zestril] 20 mg PO BID 10/04/21 Memantine HCl 10 mg PO BID 10/04/21 Metformin HCl 1,000 mg PO BID 10/04/21 Sertraline HCl 50 mg PO BEDTIME 10/04/21 carvediloL [Carvedilol] 6.25 mg PO BID 10/04/21 Hydrocodone 7.5/APAP 325 [[employer] 7.5/325 mg*] 1 tab PO Q4H PRN tab 12/20/21 Physician Discharge Instructions: Keep dressing clean dry and intact. Begin Xarelto tomorrow December 21 with breakfast. Take Xarelto once daily until prescription completed. Follow-up in 2 weeks for reevaluation and staple removal with Dr. Castillo. Diet: ADA Activity: Weight bearing as tolerated Followup: Donald Castillo MD [ACTIVE - CAN ADMIT] - 1-2 Weeks Nancy Obregon MD [Primary Care Provider] -
== END 2021-12-20 18:18 | disposition home health service (06) ==
LOC: OR 05:46 → 4TH 12:15
PROVIDERS: ADMIT Orthopaedic Surgery Sports Medicine; ATTEND Orthopaedic Surgery Sports Medicine
PROC: 0SRD069 Replacement of Left Knee Joint with Oxidized Zirconium on Polyethylene Synthetic Substitute, Cemented, Open Approach (ICD-10-PCS; principal; 2021-12-19 08:00)
DX: M17.12 Unilateral primary osteoarthritis, left knee (principal); Z20.822 Contact with and (suspected) exposure to COVID-19
CPT/HCPCS: 36415; 71046; 80048; 82947; 85014; 85018; 85025; 85610; 85730; 87811; 88305; 88311; 93005; 94010; 97110; 97116; 97139; 97161; 97530; A4216; G0378; G0379; J0171; J0690; J1100; J1170; J1650; J2001; J2250; J2405; J2704; J3010; J7030

== ENCOUNTER 2024-08-17 19:04 | Emergency (ER) | payer OTHER ==
--- OUTSIDE RECORDS SUMMARY | 2024-08-17 19:12 | XMS REPORT | Continuity of Care Document ---
Author Name Unknown Address [address] [facility] [address]. [address] [place] [address] Organization [facility] Address [address] [facility]. [address] [place] [address] Care Team Providers Care Seasoning Mixer Name Role Phone Sabas Nancy Primary Care Physician [phone] Milvia Cole Attending Clinician Unavailable Duong Street Attending Clinician Unavailable Angeli Walls Attending Clinician Unavailable Edita ROD, Paul Attending Clinician [phone] Feng Zacarias NP Attending Clinician [phone] FENG ZACARIAS Attending Clinician Unavailable Nurse, Adc Pob Immunization Attending Clinician Unavailable Jigar De MD Attending Clinician [phone] FENG ZACARIAS Admitting Clinician Unavailable Payers Payer Name Policy Type Policy Number Effective Date Expirati on Date Source [facility] Medicare Replace C1 [id number] 2020 00:00:00 [facility] [employer] Medicare Replace C1 [id number] 2020 00:00:00 [facility] Problems Condition Name Condition Details Condition Category Status Onset Date Resolution Date Last Treatment Date Treating Clinician Comments Source Facial droop Facial droop Disease Active 08-17 00:00: [address] 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 Type 2 diabetes mellitus without complicati on, without long-term current use of insulin Type 2 diabetes mellitus without complicati on, without long-term current use of insulin Disease Active 08-13 00:00: [address] [facility] Dyslipidem ia Dyslipidem ia Disease Recurre nce 08-13 00:00: [address] [facility] Left acute arterial ischemic stroke, YARD MANAGER (posterior cerebral artery) Left acute arterial ischemic stroke, YARD MANAGER (posterior cerebral artery) Disease Active 08-13 00:00: [address] [facility] Cerebral edema Cerebral edema Disease Active 08-13 00:00: [address] [facility] Type 2 diabetes mellitus without complicati on, without long-term current use of insulin Type 2 diabetes mellitus without complicati on, without long-term current use of insulin Disease Recurre nce 08-13 00:00: [address] [facility] [id number] Hypertensi on, unspecifie d type Problem [facility] [id number] Chest wall pain Problem [facility] [id number] Reduced vision Problem [facility] [id number] Elevated TSH Problem [facility] [id number] Cataract of left eye, unspecifie d cataract type Problem [facility] High cholestero l High cholestero l Problem [facility] [id number] Swelling of lower extremity Problem [facility] Dementia Dementia without behavioral disturbanc e, unspecifie d dementia type Problem [facility] [id number] Primary osteoarthr itis of right knee Problem [facility] [id number] Primary osteoarthr itis of left knee Problem [facility] [id number] Abnormal mammogram Problem [facility] [id number] 105 Status post total right knee replacemen t Problem [facility] [id number] Aftercare following joint replacemen t surgery Problem [facility] [id number] Other abnormalit ies of gait and mobility Problem [facility] [id number] Unilateral primary osteoarthr itis, right hip Problem [facility] [id number] Epigastric pain Problem [facility] Anxiety Depression with anxiety Problem [facility] Depression Depression Problem [facility] Diabetes mellitus without complicati on Diabetes DMII without complicati ons Problem [facility] [id number] Acute CVA (cerebrova scular accident) Problem [facility] Gallstones Gallstones Problem [facility] [id number] Acute left-sided thoracic back pain Problem [facility] [id number] Type 2 diabetes mellitus with hyperglyce lyle Problem [facility] [id number] Status post fall Problem [facility] Seizure Seizures Problem [facility] Memory problem Memory problem Problem [facility] [id number] Status post CVA Problem [facility] [id number] Essential hypertensi on Problem [facility] [id number] Acute pain of left shoulder Problem [facility] [id number] Mixed hyperlipid emia Problem [facility] [id number] Left arm pain Problem [facility] [id number] Forgetfuln ess Problem [facility] [id number] Imbalance Problem [facility] Allergies, Adverse Reactions, Alerts Allergy Name Allergy Type Status Severity Reaction(s) Onset Date Inactive Date Treating Clinician Comments Source Cortison e (Bulk) Propensi ty to adverse reaction s Active Unknown - See comments 04-17 00:00: 00 [facility] CORTISON E (BULK) DRUG Active Unknown-Cmnt 04-17 00:00: 00 [facility] 7179 Drug allergy Active Unknown [facility] Social History Social Habit Start Date Stop Date Quantity Comments Source History of Tobacco Use [facility] Sex Assigned At [facility] Exposure to SARS-CoV-2 (event) Not sure [facility] Alcohol intake 2020-11-24 00:00:00 2020-11-24 00:00:00 Current non-drinker of alcohol (finding) [facility] Alcoholic beverage intake 2020-11-24 00:00:00 2020-11-24 00:00:00 Current non-drinker of alcohol (finding) [facility] History of Social function 2020-11-24 00:00:00 2020-11-24 00:00:00 [facility] Smoking Status Start Date Stop Date Source Never Smoker [facility] Medications Ordered Medication Name Filled Medication Name Start Date Stop Date Current Medication? Ordering Clinician Indication Dosage Frequency Signature (SIG) Comments Components Source Methocarbam ol 500 MG Methocarbam ol 500 MG 08-26 00:00: 00 No 1{table t} Methocarba mol 500 MG Methocarbam ol 500 MG Methocarbam ol 500 MG 08-26 00:00: 00 No 1{table t} Methocarba mol 500 MG Methocarbam ol 500 MG Methocarbam ol 500 MG 08-26 00:00: 00 No 1{table t} Methocarba mol 500 MG Methocarbam ol 500 MG Methocarbam ol 500 MG 08-26 00:00: 00 No 1{table t} Methocarba mol 500 MG Methocarbam ol 500 MG Methocarbam ol 500 MG 3-0 08-26 00:00: 00 No 1{table t} Methocarba mol 500 MG Methocarbam ol 500 MG Methocarbam ol 500 MG 2023-0 08-26 00:00: 00 No 1{table t} Methocarba mol 500 MG Methocarbam ol 500 MG Methocarbam ol 500 MG 2023-0 08-26 00:00: 00 No 1{table t} Methocarba mol 500 MG Methocarbam ol 500 MG Methocarbam ol 500 MG 2023-0 08-26 00:00: 00 No 1{table t} Methocarba mol 500 MG Methocarbam ol 500 MG Methocarbam ol 500 MG 2023-0 08-26 00:00: 00 No 1{table t} Methocarba mol 500 MG Methocarbam ol 500 MG Methocarbam ol 500 MG 2023-0 08-26 00:00: 00 No 1{table t} Methocarba mol 500 MG Methocarbam ol 500 MG Methocarbam ol 500 MG 3-0 08-26 00:00: 00 No 1{table t} Methocarba mol 500 MG Methocarbam ol 500 MG Methocarbam ol 500 MG 3-0 08-26 00:00: 00 No 1{table t} Methocarba mol 500 MG Methocarbam ol 500 MG Methocarbam ol 500 MG 3-0 08-26 00:00: 00 No 1{table t} Methocarba mol 500 MG Methocarbam ol 500 MG Methocarbam ol 500 MG 3-0 08-26 00:00: 00 No 1{table t} Methocarba mol 500 MG Methocarbam ol 500 MG Methocarbam ol 500 MG 3-0 08-26 00:00: 00 No 1{table t} Methocarba mol 500 MG Xarelto 10 MG Xarelto 10 MG 2023-0 4-10 00:00: 00 No 1{table t} QD Xarelto 10 MG Xarelto 10 MG Xarelto 10 MG 2023-0 4-10 00:00: 00 No 1{table t} QD Xarelto 10 MG Xarelto 10 MG Xarelto 10 MG 2023-0 4-10 00:00: 00 No 1{table t} QD Xarelto 10 MG Xarelto 10 MG Xarelto 10 MG 2023-0 4-10 00:00: 00 No 1{table t} QD Xarelto 10 MG Xarelto 10 MG Xarelto 10 MG 2023-0 4-10 00:00: 00 No 1{table t} QD Xarelto 10 MG Xarelto 10 MG Xarelto 10 MG 2023-0 4-10 00:00: 00 No 1{table t} QD Xarelto 10 MG Xarelto 10 MG Xarelto 10 MG 2023-0 4-10 00:00: 00 No 1{table t} QD Xarelto 10 MG Xarelto 10 MG Xarelto 10 MG 2023-0 4-10 00:00: 00 No 1{table t} QD Xarelto 10 MG Xarelto 10 MG Xarelto 10 MG 2023-0 4-10 00:00: 00 No 1{table t} QD Xarelto 10 MG Xarelto 10 MG Xarelto 10 MG 3-0 4-10 00:00: 00 No 1{table t} QD Xarelto 10 MG Xarelto 10 MG Xarelto 10 MG 2023-0 4-10 00:00: 00 No 1{table t} QD Xarelto 10 MG Xarelto 10 MG Xarelto 10 MG 2023-0 4-10 00:00: 00 No 1{table t} QD Xarelto 10 MG Xarelto 10 MG Xarelto 10 MG 2023-0 4-10 00:00: 00 No 1{table t} QD Xarelto 10 MG Xarelto 10 MG Xarelto 10 MG 2023-0 4-10 00:00: 00 No 1{table t} QD Xarelto 10 MG Xarelto 10 MG Xarelto 10 MG 2023-0 4-10 00:00: 00 No 1{table t} QD Xarelto 10 MG HYDROcodone -Acetaminop hen 5-325 MG HYDROcodone -Acetaminop hen 5-325 MG 2022-0 9- 00:00: 00 No 1{table t_as_ne eded} QID HYDROcodon e-Acetamin ophen 5-325 MG HYDROcodone -Acetaminop hen 5-325 MG HYDROcodone -Acetaminop hen 5-325 MG 2022-0 01-03 00:00: 00 No 1{table t_as_ne eded} QID HYDROcodon e-Acetamin ophen 5-325 MG HYDROcodone -Acetaminop hen 5-325 MG HYDROcodone -Acetaminop hen 5-325 MG 2-0 01-03 00:00: 00 No 1{table t_as_ne eded} QID HYDROcodon e-Acetamin ophen 5-325 MG HYDROcodone -Acetaminop hen 5-325 MG HYDROcodone -Acetaminop hen 5-325 MG 2-0 01-03 00:00: 00 No 1{table t_as_ne eded} QID HYDROcodon e-Acetamin ophen 5-325 MG HYDROcodone -Acetaminop hen 5-325 MG HYDROcodone -Acetaminop hen 5-325 MG 2-0 01-03 00:00: 00 No 1{table t_as_ne eded} QID HYDROcodon e-Acetamin ophen 5-325 MG HYDROcodone -Acetaminop hen 5-325 MG HYDROcodone -Acetaminop hen 5-325 MG 2021-0 01-03 00:00: 00 No 1{table t_as_ne eded} QID HYDROcodon e-Acetamin ophen 5-325 MG HYDROcodone -Acetaminop hen 5-325 MG HYDROcodone -Acetaminop hen 5-325 MG 2021-0 01-03 00:00: 00 No 1{table t_as_ne eded} QID HYDROcodon e-Acetamin ophen 5-325 MG HYDROcodone -Acetaminop hen 5-325 MG HYDROcodone -Acetaminop hen 5-325 MG 2-0 01-03 00:00: 00 No 1{table t_as_ne eded} QID HYDROcodon e-Acetamin ophen 5-325 MG HYDROcodone -Acetaminop hen 5-325 MG HYDROcodone -Acetaminop hen 5-325 MG 2-0 01-03 00:00: 00 No 1{table t_as_ne eded} QID HYDROcodon e-Acetamin ophen 5-325 MG HYDROcodone -Acetaminop hen 5-325 MG HYDROcodone -Acetaminop hen 5-325 MG 2-0 01-03 00:00: 00 No 1{table t_as_ne eded} QID HYDROcodon e-Acetamin ophen 5-325 MG HYDROcodone -Acetaminop hen 5-325 MG HYDROcodone -Acetaminop hen 5-325 MG 2022-0 - 00:00: 00 No 1{table t_as_ne eded} QID HYDROcodon e-Acetamin ophen 5-325 MG HYDROcodone -Acetaminop hen 5-325 MG HYDROcodone -Acetaminop hen 5-325 MG 2022-0 - 00:00: 00 No 1{table t_as_ne eded} QID HYDROcodon e-Acetamin ophen 5-325 MG HYDROcodone -Acetaminop hen 5-325 MG HYDROcodone -Acetaminop hen 5-325 MG 2022-0 01-03 00:00: 00 No 1{table t_as_ne eded} QID HYDROcodon e-Acetamin ophen 5-325 MG HYDROcodone -Acetaminop hen 5-325 MG HYDROcodone -Acetaminop hen 5-325 MG 2022-0 01-03 00:00: 00 No 1{table t_as_ne eded} QID HYDROcodon e-Acetamin ophen 5-325 MG HYDROcodone -Acetaminop hen 5-325 MG HYDROcodone -Acetaminop hen 5-325 MG 2022-0 01-03 00:00: 00 No 1{table t_as_ne eded} QID HYDROcodon e-Acetamin ophen 5-325 MG HYDROcodone -Acetaminop hen 5-325 MG HYDROcodone -Acetaminop hen 5-325 MG 2022-0 01-03 00:00: 00 No 1{table t_as_ne eded} QID HYDROcodon e-Acetamin ophen 5-325 MG HYDROcodone -Acetaminop hen 5-325 MG HYDROcodone -Acetaminop hen 5-325 MG 2022-0 01-03 00:00: 00 No 1{table t_as_ne eded} QID HYDROcodon e-Acetamin ophen 5-325 MG HYDROcodone -Acetaminop hen 5-325 MG HYDROcodone -Acetaminop hen 5-325 MG 2022-0 01-03 00:00: 00 No 1{table t_as_ne eded} QID HYDROcodon e-Acetamin ophen 5-325 MG HYDROcodone -Acetaminop hen 5-325 MG HYDROcodone -Acetaminop hen 5-325 MG 2022-0 9-29 00:00: 00 No 1{table t_as_ne eded} QID HYDROcodon e-Acetamin ophen 5-325 MG HYDROcodone -Acetaminop hen 5-325 MG HYDROcodone -Acetaminop hen 5-325 MG 2022-0 9-29 00:00: 00 No 1{table t_as_ne eded} QID HYDROcodon e-Acetamin ophen 5-325 MG HYDROcodone -Acetaminop hen 5-325 MG HYDROcodone -Acetaminop hen 5-325 MG 2022-0 9-29 00:00: 00 No 1{table t_as_ne eded} QID HYDROcodon e-Acetamin ophen 5-325 MG HYDROcodone -Acetaminop hen 5-325 MG HYDROcodone -Acetaminop hen 5-325 MG 2022-0 9-29 00:00: 00 No 1{table t_as_ne eded} QID HYDROcodon e-Acetamin ophen 5-325 MG Xarelto 10 MG Xarelto 10 MG 2022-0 6-29 00:00: 00 No 1{table t} QD Xarelto 10 MG HYDROcodone -Acetaminop hen 7.5-325 MG HYDROcodone -Acetaminop hen 7.5-325 MG 2-0 6-29 00:00: 00 No 1{table t_as_ne eded} HYDROcodon e-Acetamin ophen 7.5-325 MG Xarelto 10 MG Xarelto 10 MG 2022-0 6-29 00:00: 00 No 1{table t} QD Xarelto 10 MG HYDROcodone -Acetaminop hen 7.5-325 MG HYDROcodone -Acetaminop hen 7.5-325 MG 2022-0 6-29 00:00: 00 No 1{table t_as_ne eded} HYDROcodon e-Acetamin ophen 7.5-325 MG Xarelto 10 MG Xarelto 10 MG 2022-0 6-29 00:00: 00 No 1{table t} QD Xarelto 10 MG HYDROcodone -Acetaminop hen 7.5-325 MG HYDROcodone -Acetaminop hen 7.5-325 MG 2022-0 6-29 00:00: 00 No 1{table t_as_ne eded} HYDROcodon e-Acetamin ophen 7.5-325 MG Xarelto 10 MG Xarelto 10 MG 2-0 29 00:00: 00 No 1{table t} QD Xarelto 10 MG HYDROcodone -Acetaminop hen 7.5-325 MG HYDROcodone -Acetaminop hen 7.5-325 MG 2-0 629 00:00: 00 No 1{table t_as_ne eded} HYDROcodon e-Acetamin ophen 7.5-325 MG Xarelto 10 MG Xarelto 10 MG 2-0 629 00:00: 00 No 1{table t} QD Xarelto 10 MG HYDROcodone -Acetaminop hen 7.5-325 MG HYDROcodone -Acetaminop hen 7.5-325 MG 2-0 10-03 00:00: 00 No 1{table t_as_ne eded} HYDROcodon e-Acetamin ophen 7.5-325 MG Xarelto 10 MG Xarelto 10 MG 2-0 10-03 00:00: 00 No 1{table t} QD Xarelto 10 MG HYDROcodone -Acetaminop hen 7.5-325 MG HYDROcodone -Acetaminop hen 7.5-325 MG 2-0 29 00:00: 00 No 1{table t_as_ne eded} HYDROcodon e-Acetamin ophen 7.5-325 MG Xarelto 10 MG Xarelto 10 MG 2-0 29 00:00: 00 No 1{table t} QD Xarelto 10 MG HYDROcodone -Acetaminop hen 7.5-325 MG HYDROcodone -Acetaminop hen 7.5-325 MG 2-0 629 00:00: 00 No 1{table t_as_ne eded} HYDROcodon e-Acetamin ophen 7.5-325 MG Xarelto 10 MG Xarelto 10 MG 2-0 29 00:00: 00 No 1{table t} QD Xarelto 10 MG HYDROcodone -Acetaminop hen 7.5-325 MG HYDROcodone -Acetaminop hen 7.5-325 MG 2-0 629 00:00: 00 No 1{table t_as_ne eded} HYDROcodon e-Acetamin ophen 7.5-325 MG Xarelto 10 MG Xarelto 10 MG 2-0 10-03 00:00: 00 No 1{table t} QD Xarelto 10 MG HYDROcodone -Acetaminop hen 7.5-325 MG HYDROcodone -Acetaminop hen 7.5-325 MG 2-0 629 00:00: 00 No 1{table t_as_ne eded} HYDROcodon e-Acetamin ophen 7.5-325 MG Xarelto 10 MG Xarelto 10 MG 2022-0 10-03 00:00: 00 No 1{table t} QD Xarelto 10 MG HYDROcodone -Acetaminop hen 7.5-325 MG HYDROcodone -Acetaminop hen 7.5-325 MG 2-0 10-03 00:00: 00 No 1{table t_as_ne eded} HYDROcodon e-Acetamin ophen 7.5-325 MG Xarelto 10 MG Xarelto 10 MG 2-0 10-03 00:00: 00 No 1{table t} QD Xarelto 10 MG HYDROcodone -Acetaminop hen 7.5-325 MG HYDROcodone -Acetaminop hen 7.5-325 MG 2-0 10-03 00:00: 00 No 1{table t_as_ne eded} HYDROcodon e-Acetamin ophen 7.5-325 MG HYDROcodone -Acetaminop hen 7.5-325 MG HYDROcodone -Acetaminop hen 7.5-325 MG 2-0 10-03 00:00: 00 No 1{table t_as_ne eded} HYDROcodon e-Acetamin ophen 7.5-325 MG Xarelto 10 MG Xarelto 10 MG 2-0 29 00:00: 00 No 1{table t} QD Xarelto 10 MG Xarelto 10 MG Xarelto 10 MG 2-0 10-03 00:00: 00 No 1{table t} QD Xarelto 10 MG HYDROcodone -Acetaminop hen 7.5-325 MG HYDROcodone -Acetaminop hen 7.5-325 MG 2-0 10-03 00:00: 00 No 1{table t_as_ne eded} HYDROcodon e-Acetamin ophen 7.5-325 MG Xarelto 10 MG Xarelto 10 MG 2-0 629 00:00: 00 No 1{table t} QD Xarelto 10 MG HYDROcodone -Acetaminop hen 7.5-325 MG HYDROcodone -Acetaminop hen 7.5-325 MG 2022-0 629 00:00: 00 No 1{table t_as_ne eded} HYDROcodon e-Acetamin ophen 7.5-325 MG HYDROcodone -Acetaminop hen 7.5-325 MG HYDROcodone -Acetaminop hen 7.5-325 MG 2022-0 629 00:00: 00 No 1{table t_as_ne eded} HYDROcodon e-Acetamin ophen 7.5-325 MG Xarelto 10 MG Xarelto 10 MG 2-0 629 00:00: 00 No 1{table t} QD Xarelto 10 MG Xarelto 10 MG Xarelto 10 MG 2-0 6 00:00: 00 No 1{table t} QD Xarelto 10 MG HYDROcodone -Acetaminop hen 7.5-325 MG HYDROcodone -Acetaminop hen 7.5-325 MG 2-0 6 00:00: 00 No 1{table t_as_ne eded} HYDROcodon e-Acetamin ophen 7.5-325 MG Xarelto 10 MG Xarelto 10 MG 2-0 6 00:00: 00 No 1{table t} QD Xarelto 10 MG HYDROcodone -Acetaminop hen 7.5-325 MG HYDROcodone -Acetaminop hen 7.5-325 MG 2-0 629 00:00: 00 No 1{table t_as_ne eded} HYDROcodon e-Acetamin ophen 7.5-325 MG Xarelto 10 MG Xarelto 10 MG 2022-0 629 00:00: 00 No 1{table t} QD Xarelto 10 MG HYDROcodone -Acetaminop hen 7.5-325 MG HYDROcodone -Acetaminop hen 7.5-325 MG 2022-0 629 00:00: 00 No 1{table t_as_ne eded} HYDROcodon e-Acetamin ophen 7.5-325 MG Xarelto 10 MG Xarelto 10 MG 2022-0 6-29 00:00: 00 No 1{table t} QD Xarelto 10 MG HYDROcodone -Acetaminop hen 7.5-325 MG HYDROcodone -Acetaminop hen 7.5-325 MG 2-0 6-29 00:00: 00 No 1{table t_as_ne eded} HYDROcodon e-Acetamin ophen 7.5-325 MG Xarelto 10 MG Xarelto 10 MG 2022-0 629 00:00: 00 No 1{table t} QD Xarelto 10 MG HYDROcodone -Acetaminop hen 7.5-325 MG HYDROcodone -Acetaminop hen 7.5-325 MG 2-0 629 00:00: 00 No 1{table t_as_ne eded} HYDROcodon e-Acetamin ophen 7.5-325 MG Xarelto 10 MG Xarelto 10 MG 2-0 6 00:00: 00 No 1{table t} QD Xarelto 10 MG HYDROcodone -Acetaminop hen 7.5-325 MG HYDROcodone -Acetaminop hen 7.5-325 MG 2-0 6 00:00: 00 No 1{table t_as_ne eded} HYDROcodon e-Acetamin ophen 7.5-325 MG Xarelto 10 MG Xarelto 10 MG 2-0 29 00:00: 00 No 1{table t} QD Xarelto 10 MG HYDROcodone -Acetaminop hen 7.5-325 MG HYDROcodone -Acetaminop hen 7.5-325 MG 2-0 629 00:00: 00 No 1{table t_as_ne eded} HYDROcodon e-Acetamin ophen 7.5-325 MG Xarelto 10 MG Xarelto 10 MG 2-0 629 00:00: 00 No 1{table t} QD Xarelto 10 MG HYDROcodone -Acetaminop hen 7.5-325 MG HYDROcodone -Acetaminop hen 7.5-325 MG 2022-0 629 00:00: 00 No 1{table t_as_ne eded} HYDROcodon e-Acetamin ophen 7.5-325 MG Xarelto 10 MG Xarelto 10 MG 2022-0 6-29 00:00: 00 No 1{table t} QD Xarelto 10 MG HYDROcodone -Acetaminop hen 7.5-325 MG HYDROcodone -Acetaminop hen 7.5-325 MG 10-03 00:00: 00 No 1{table t_as_ne eded} HYDROcodon e-Acetamin ophen 7.5-325 MG gabapentin 100 mg capsule 8-20 00:00: 00 Yes [id number] 100mg Take 1 capsule by mouth 3 (three) times daily as needed for Pain (scale 4-6) or Nausea and Vomiting (N/V). [facility] Bupivicaine [place] Bupivicaine [place] 09-21 00:00: 00 No 2.5mg [facility] Kenalog (Triamcinol one) Kenalog (Triamcinol one) 09-21 00:00: 00 No 40mg [facility] Bupivicaine [place] Bupivicaine [place] 09-21 00:00: 00 No 2.5mg [facility] Kenalog (Triamcinol one) Kenalog (Triamcinol one) 09-21 00:00: 00 No 40mg [facility] Bupivicaine [place] Bupivicaine [place] 09-21 00:00: 00 No 2.5mg [facility] Kenalog (Triamcinol one) Kenalog (Triamcinol one) 09-21 00:00: 00 No 40mg [facility] Bupivicaine [place] Bupivicaine [place] 09-21 00:00: 00 No 2.5mg [facility] Kenalog (Triamcinol one) Kenalog (Triamcinol one) 09-21 00:00: 00 No 40mg [facility] Bupivicaine [place] Bupivicaine [place] 09-21 00:00: 00 No 2.5mg [facility] Kenalog (Triamcinol one) Kenalog (Triamcinol one) 0 09-21 00:00: 00 No 40mg [facility] Bupivicaine [place] Bupivicaine [place] 0 09-21 00:00: 00 No [facility] Kenalog (Triamcinol one) Kenalog (Triamcinol one) 0 09-21 00:00: 00 No 40mg [facility] Bupivicaine [place] Bupivicaine [place] 0 09-21 00:00: 00 No 2.5mg [facility] Kenalog (Triamcinol one) Kenalog (Triamcinol one) 0 09-21 00:00: 00 No 40mg [facility] Bupivicaine [place] Bupivicaine [place] 0 09-21 00:00: 00 No 2.5mg [facility] Kenalog (Triamcinol one) Kenalog (Triamcinol one) 0 09-21 00:00: 00 No 40mg [facility] Bupivicaine [place] Bupivicaine [place] 0 09-21 00:00: 00 No 2.5mg [facility] Kenalog (Triamcinol one) Kenalog (Triamcinol one) 0 09-21 00:00: 00 No 40mg [facility] Bupivicaine [place] Bupivicaine [place] 0 09-21 00:00: 00 No 2.5mg [facility] Kenalog (Triamcinol one) Kenalog (Triamcinol one) 0 09-21 00:00: 00 No 40mg [facility] Bupivicaine [place] Bupivicaine [place] 0 09-21 00:00: 00 No 2.5mg [facility] Kenalog (Triamcinol one) Kenalog (Triamcinol one) 0 09-21 00:00: 00 No 40mg [facility] Bupivicaine [place] Bupivicaine [place] 0 09-21 00:00: 00 No 2.5mg [facility] Kenalog (Triamcinol one) Kenalog (Triamcinol one) 0 09-21 00:00: 00 No 40mg [facility] Bupivicaine [place] Bupivicaine [place] 0 09-21 00:00: 00 No 2.5mg [facility] Kenalog (Triamcinol one) Kenalog (Triamcinol one) 0 09-21 00:00: 00 No 40mg [facility] Bupivicaine [place] Bupivicaine [place] 0 09-21 00:00: 00 No 2.5mg [facility] Kenalog (Triamcinol one) Kenalog (Triamcinol one) 0 09-21 00:00: 00 No 40mg [facility] Bupivicaine [place] Bupivicaine [place] 0 09-21 00:00: 00 No 2.5mg [facility] Kenalog (Triamcinol one) Kenalog (Triamcinol one) 0 09-21 00:00: 00 No 40mg [facility] Bupivicaine [place] Bupivicaine [place] 0 09-21 00:00: 00 No 2.5mg [facility] Kenalog (Triamcinol one) Kenalog (Triamcinol one) 0 09-21 00:00: 00 No 40mg [facility] Bupivicaine [place] Bupivicaine [place] 0 09-21 00:00: 00 No 2.5mg [facility] Kenalog (Triamcinol one) Kenalog (Triamcinol one) 0 09-21 00:00: 00 No 40mg [facility] Bupivicaine [place] Bupivicaine [place] 0 09-21 00:00: 00 No 2.5mg [facility] Kenalog (Triamcinol one) Kenalog (Triamcinol one) 0 09-21 00:00: 00 No 40mg [facility] Bupivicaine [place] Bupivicaine [place] 0 09-21 00:00: 00 No 2.5mg [facility] Kenalog (Triamcinol one) Kenalog (Triamcinol one) 0 09-21 00:00: 00 No 40mg [facility] Bupivicaine [place] Bupivicaine [place] 0 09-21 00:00: 00 No 2.5mg [facility] Kenalog (Triamcinol one) Kenalog (Triamcinol one) 0 09-21 00:00: 00 No 40mg [facility] Bupivicaine [place] Bupivicaine [place] 0 09-21 00:00: 00 No 2.5mg [facility] Kenalog (Triamcinol one) Kenalog (Triamcinol one) 0 09-21 00:00: 00 No 40mg [facility] Bupivicaine [place] Bupivicaine [place] 0 09-21 00:00: 00 No 2.5mg [facility] Kenalog (Triamcinol one) Kenalog (Triamcinol one) 0 09-21 00:00: 00 No 40mg [facility] Bupivicaine [place] Bupivicaine [place] 2020-0 09-21 00:00: 00 No 2.5mg [facility] Kenalog (Triamcinol one) Kenalog (Triamcinol one) 0 09-21 00:00: 00 No 40mg [facility] Bupivicaine [place] Bupivicaine [place] 2020-0 09-21 00:00: 00 No 2.5mg [facility] Kenalog (Triamcinol one) Kenalog (Triamcinol one) 0 6-17 00:00: 00 No 40mg [facility] Bupivicaine [place] Bupivicaine [place] 2020-0 -17 00:00: 00 No 2.5mg [facility] Kenalog (Triamcinol one) Kenalog (Triamcinol one) 2020-0 -17 00:00: 00 No 40mg [facility] Bupivicaine [place] Bupivicaine [place] 0 17 00:00: 00 No 2.5mg [facility] Kenalog (Triamcinol one) Kenalog (Triamcinol one) 0 17 00:00: 00 No 40mg [facility] Bupivicaine [place] Bupivicaine [place] 2020-0 17 00:00: 00 No 2.5mg [facility] Kenalog (Triamcinol one) Kenalog (Triamcinol one) 0 -17 00:00: 00 No 40mg [facility] Bupivicaine [place] Bupivicaine [place] 0 17 00:00: 00 No 2.5mg [facility] Kenalog (Triamcinol one) Kenalog (Triamcinol one) 0 17 00:00: 00 No 40mg [facility] Bupivicaine [place] Bupivicaine [place] 0 17 00:00: 00 No 2.5mg [facility] Kenalog (Triamcinol one) Kenalog (Triamcinol one) 0 -17 00:00: 00 No 40mg [facility] Bupivicaine [place] Bupivicaine [place] 0 17 00:00: 00 No 2.5mg [facility] Kenalog (Triamcinol one) Kenalog (Triamcinol one) 2020-0 -17 00:00: 00 No 40mg [facility] Bupivicaine [place] Bupivicaine [place] 0 08-21 00:00: 00 No [facility] Kenalog (Triamcinol one) Kenalog (Triamcinol one) 0 08-21 00:00: 00 No 40mg [facility] Bupivicaine [place] Bupivicaine [place] 0 08-21 00:00: 00 No 2.5mg [facility] Kenalog (Triamcinol one) Kenalog (Triamcinol one) 0 08-21 00:00: 00 No 40mg [facility] Bupivicaine [place] Bupivicaine [place] 0 08-21 00:00: 00 No 2.5mg [facility] Kenalog (Triamcinol one) Kenalog (Triamcinol one) 0 08-21 00:00: 00 No 40mg [facility] Bupivicaine [place] Bupivicaine [place] 0 08-21 00:00: 00 No 2.5mg [facility] Kenalog (Triamcinol one) Kenalog (Triamcinol one) 0 08-21 00:00: 00 No 40mg [facility] Bupivicaine [place] Bupivicaine [place] 0 08-21 00:00: 00 No 2.5mg [facility] Kenalog (Triamcinol one) Kenalog (Triamcinol one) 0 08-21 00:00: 00 No 40mg [facility] Bupivicaine [place] Bupivicaine [place] 0 08-21 00:00: 00 No 2.5mg [facility] Kenalog (Triamcinol one) Kenalog (Triamcinol one) 0 08-21 00:00: 00 No 40mg [facility] Bupivicaine [place] Bupivicaine [place] 0 08-21 00:00: 00 No 2.5mg [facility] Kenalog (Triamcinol one) Kenalog (Triamcinol one) 0 08-21 00:00: 00 No 40mg [facility] Bupivicaine [place] Bupivicaine [place] 08-21 00:00: 00 No 2.5mg [facility] Kenalog (Triamcinol one) Kenalog (Triamcinol one) 0 08-21 00:00: 00 No 40mg [facility] Bupivicaine [place] Bupivicaine [place] 08-21 00:00: 00 No 2.5mg [facility] Kenalog (Triamcinol one) Kenalog (Triamcinol one) 08-21 00:00: 00 No 40mg [facility] Bupivicaine [place] Bupivicaine [place] 08-21 00:00: 00 No 2.5mg [facility] Kenalog (Triamcinol one) Kenalog (Triamcinol one) 08-21 00:00: 00 No 40mg [facility] Bupivicaine [place] Bupivicaine [place] 08-21 00:00: 00 No 2.5mg [facility] Kenalog (Triamcinol one) Kenalog (Triamcinol one) 0 08-21 00:00: 00 No 40mg [facility] Bupivicaine [place] Bupivicaine [place] 08-21 00:00: 00 No 2.5mg [facility] Kenalog (Triamcinol one) Kenalog (Triamcinol one) 08-21 00:00: 00 No 40mg [facility] Bupivicaine [place] Bupivicaine [place] 0 08-21 00:00: 00 No 2.5mg [facility] Kenalog (Triamcinol one) Kenalog (Triamcinol one) 0 08-21 00:00: 00 No 40mg [facility] Bupivicaine [place] Bupivicaine [place] 0 08-21 00:00: 00 No 2.5mg [facility] Kenalog (Triamcinol one) Kenalog (Triamcinol one) 0 08-21 00:00: 00 No 40mg [facility] Bupivicaine [place] Bupivicaine [place] 0 08-21 00:00: 00 No 2.5mg [facility] Kenalog (Triamcinol one) Kenalog (Triamcinol one) 0 08-21 00:00: 00 No 40mg [facility] Bupivicaine [place] Bupivicaine [place] 0 08-21 00:00: 00 No 2.5mg [facility] Kenalog (Triamcinol one) Kenalog (Triamcinol one) 0 08-21 00:00: 00 No 40mg [facility] Bupivicaine [place] Bupivicaine [place] 0 08-21 00:00: 00 No 2.5mg [facility] Kenalog (Triamcinol one) Kenalog (Triamcinol one) 08-21 00:00: 00 No 40mg [facility] Bupivicaine [place] Bupivicaine [place] 0 08-21 00:00: 00 No 2.5mg [facility] Kenalog (Triamcinol one) Kenalog (Triamcinol one) 0 08-21 00:00: 00 No 40mg [facility] Bupivicaine [place] Bupivicaine [place] 0 08-21 00:00: 00 No 2.5mg [facility] Kenalog (Triamcinol one) Kenalog (Triamcinol one) 0 08-21 00:00: 00 No 40mg [facility] Bupivicaine [place] Bupivicaine [place] 0 08-21 00:00: 00 No 2.5mg [facility] Kenalog (Triamcinol one) Kenalog (Triamcinol one) 08-21 00:00: 00 No 40mg [facility] Carvedilol 12.5 mg AM, 6.25 mg PM Carvedilol 12.5 mg AM, 6.25 mg PM 12-01 00:00: 00 No Carvedilol 12.5 mg AM, 6.25 mg PM Carvedilol 12.5 mg AM, 6.25 mg PM Carvedilol 12.5 mg AM, 6.25 mg PM 12-01 00:00: 00 No Carvedilol 12.5 mg AM, 6.25 mg PM Carvedilol 12.5 mg AM, 6.25 mg PM Carvedilol 12.5 mg AM, 6.25 mg PM 12-01 00:00: 00 No Carvedilol 12.5 mg AM, 6.25 mg PM Carvedilol 12.5 mg AM, 6.25 mg PM Carvedilol 12.5 mg AM, 6.25 mg PM 12-01 00:00: 00 No Carvedilol 12.5 mg AM, 6.25 mg PM Diclofenac Potassium 50 mg PwPk 08-19 18:19: 36 Yes 50mg Take 50 mg by mouth 2 (two) times daily. [facility] carvedilol 6.25 mg tablet 08-19 18:19: 36 Yes 6.25mg Take 6.25 mg by mouth 2 (two) times daily with meals. [facility] proMETHazin e 25 mg tablet 08-19 18:19: 36 Yes 25mg Take 25 mg by mouth every 8 (eight) hours. [facility] metFORMIN 1,000 mg tablet 08-19 18:19: 36 Yes 1000mg Take 1,000 mg by mouth 2 (two) times daily with meals. [facility] glimepiride 2 mg tablet 08-19 18:19: 36 Yes 2mg Take 2 mg by mouth daily with breakfast. [facility] Diclofenac Potassium 50 mg PwPk 08-19 13:19: 36 Yes 50mg Take 50 mg by mouth 2 (two) times daily. [facility] carvedilol 6.25 mg tablet 08-19 13:19: 36 Yes 6.25mg Take 6.25 mg by mouth 2 (two) times daily with meals. [facility] proMETHazin e 25 mg tablet 08-19 13:19: 36 Yes 25mg Take 25 mg by mouth every 8 (eight) hours. [facility] metFORMIN 1,000 mg tablet 08-19 13:19: 36 Yes 1000mg Take 1,000 mg by mouth 2 (two) times daily with meals. [facility] glimepiride 2 mg tablet 08-19 13:19: 36 Yes 2mg Take 2 mg by mouth daily with breakfast. [facility] levETIRAcet am 1,000 mg tablet 08-19 00:00: 00 Yes 1000mg Take 1 tablet by mouth 2 (two) times daily. [facility] lisinopril 20 mg tablet 08-16 00:00: 00 Yes 20mg Take 1 tablet by mouth daily. [facility] aspirin 81 mg chewable tablet 08-16 00:00: 00 Yes 81mg Take 1 tablet by mouth daily. [facility] clopidogrel 75 mg tablet 08-16 00:00: 00 Yes 75mg Take 1 tablet by mouth daily. [facility] atorvastati n 20 mg tablet 08-15 00:00: 00 Yes 20mg Take 1 tablet by mouth every evening. [facility] ELASTIC WRIST SPLINT [employer] [facility] 04-16 00:00: 00 Yes PRN pain [facility] ELASTIC WRIST [employer] [facility] 04-16 00:00: 00 Yes PRN pain [facility] Atorvastati n Calcium Atorvastati n Calcium Yes Angeli Millender 1 tablet [facility] amLODIPine Besylate 10 MG amLODIPine Besylate 10 MG No 1{table t} QD amLODIPine Besylate 10 MG Zoloft 50 MG Zoloft 50 MG No QD Zoloft 50 MG Aspir-Low 81 MG Aspir-Low 81 MG No 1{table t} QD Aspir-Low 81 MG Omeprazole 20 mg Omeprazole 20 mg No QD Omeprazole 20 mg Glimepiride 2 MG Glimepiride 2 MG No 1{table t_with_ breakfa st_or_t he_firs t_main_ meal_of _the_da y} QD Glimepirid e 2 MG Carvedilol 6.25 MG Carvedilol 6.25 MG No 1{table t} BID Carvedilol 6.25 MG Atorvastati n Calcium 20 MG Atorvastati n Calcium 20 MG No 1{table t} QD Atorvastat in Calcium 20 MG levETIRAcet am 500 MG levETIRAcet am 500 MG No 1{table t} BID levETIRAce rosario 500 MG Memantine HCl 10 MG Memantine HCl 10 MG No 1{table t} BID Memantine HCl 10 MG Clopidogrel Bisulfate 75 MG Clopidogrel Bisulfate 75 MG No 1{table t} QD Clopidogre l Bisulfate 75 MG Furosemide 20 mg Furosemide 20 mg No QD Furosemide 20 mg Gabapentin 300 MG Gabapentin 300 MG No BID Gabapentin 300 MG Lisinopril 20 mg Lisinopril 20 mg No 1{table t} Lisinopril 20 mg metFORMIN HCl 1000 MG metFORMIN HCl 1000 MG No 1{table t_with_ a_meal} BID metFORMIN HCl 1000 MG Glimepiride 4 MG Glimepiride 4 MG No 1{table t_with_ breakfa st_or_t he_firs t_main_ meal_of _the_da y} QD Glimepirid e 4 MG amLODIPine Besylate 10 MG amLODIPine Besylate 10 MG No 1{table t} QD amLODIPine Besylate 10 MG Zoloft 50 MG Zoloft 50 MG No QD Zoloft 50 MG Aspir-Low 81 MG Aspir-Low 81 MG No 1{table t} QD Aspir-Low 81 MG Omeprazole 20 mg Omeprazole 20 mg No QD Omeprazole 20 mg Glimepiride 2 MG Glimepiride 2 MG No 1{table t_with_ breakfa st_or_t he_firs t_main_ meal_of _the_da y} QD Glimepirid e 2 MG Carvedilol 6.25 MG Carvedilol 6.25 MG No 1{table t} BID Carvedilol 6.25 MG Atorvastati n Calcium 20 MG Atorvastati n Calcium 20 MG No 1{table t} QD Atorvastat in Calcium 20 MG levETIRAcet am 500 MG levETIRAcet am 500 MG No 1{table t} BID levETIRAce rosario 500 MG Memantine HCl 10 MG Memantine HCl 10 MG No 1{table t} BID Memantine HCl 10 MG Clopidogrel Bisulfate 75 MG Clopidogrel Bisulfate 75 MG No 1{table t} QD Clopidogre l Bisulfate 75 MG Furosemide 20 mg Furosemide 20 mg No QD Furosemide 20 mg Gabapentin 300 MG Gabapentin 300 MG No BID Gabapentin 300 MG Lisinopril 20 mg Lisinopril 20 mg No 1{table t} Lisinopril 20 mg metFORMIN HCl 1000 MG metFORMIN HCl 1000 MG No 1{table t_with_ a_meal} BID metFORMIN HCl 1000 MG Glimepiride 4 MG Glimepiride 4 MG No 1{table t_with_ breakfa st_or_t he_firs t_main_ meal_of _the_da y} QD Glimepirid e 4 MG amLODIPine Besylate 10 MG amLODIPine Besylate 10 MG No 1{table t} QD amLODIPine Besylate 10 MG Zoloft 50 MG Zoloft 50 MG No QD Zoloft 50 MG Aspir-Low 81 MG Aspir-Low 81 MG No 1{table t} QD Aspir-Low 81 MG Omeprazole 20 mg Omeprazole 20 mg No QD Omeprazole 20 mg Glimepiride 2 MG Glimepiride 2 MG No 1{table t_with_ breakfa st_or_t he_firs t_main_ meal_of _the_da y} QD Glimepirid e 2 MG Carvedilol 6.25 MG Carvedilol 6.25 MG No 1{table t} BID Carvedilol 6.25 MG Atorvastati n Calcium 20 MG Atorvastati n Calcium 20 MG No 1{table t} QD Atorvastat in Calcium 20 MG levETIRAcet am 500 MG levETIRAcet am 500 MG No 1{table t} BID levETIRAce rosario 500 MG Memantine HCl 10 MG Memantine HCl 10 MG No 1{table t} BID Memantine HCl 10 MG Clopidogrel Bisulfate 75 MG Clopidogrel Bisulfate 75 MG No 1{table t} QD Clopidogre l Bisulfate 75 MG Furosemide 20 mg Furosemide 20 mg No QD Furosemide 20 mg Gabapentin 300 MG Gabapentin 300 MG No BID Gabapentin 300 MG Lisinopril 20 mg Lisinopril 20 mg No 1{table t} Lisinopril 20 mg metFORMIN HCl 1000 MG metFORMIN HCl 1000 MG No 1{table t_with_ a_meal} BID metFORMIN HCl 1000 MG Glimepiride 4 MG Glimepiride 4 MG No 1{table t_with_ breakfa st_or_t he_firs t_main_ meal_of _the_da y} QD Glimepirid e 4 MG amLODIPine Besylate 10 MG amLODIPine Besylate 10 MG No 1{table t} QD amLODIPine Besylate 10 MG Zoloft 50 MG Zoloft 50 MG No QD Zoloft 50 MG Aspir-Low 81 MG Aspir-Low 81 MG No 1{table t} QD Aspir-Low 81 MG Omeprazole 20 mg Omeprazole 20 mg No QD Omeprazole 20 mg Glimepiride 2 MG Glimepiride 2 MG No 1{table t_with_ breakfa st_or_t he_firs t_main_ meal_of _the_da y} QD Glimepirid e 2 MG Carvedilol 6.25 MG Carvedilol 6.25 MG No 1{table t} BID Carvedilol 6.25 MG Atorvastati n Calcium 20 MG Atorvastati n Calcium 20 MG No 1{table t} QD Atorvastat in Calcium 20 MG levETIRAcet am 500 MG levETIRAcet am 500 MG No 1{table t} BID levETIRAce rosario 500 MG Memantine HCl 10 MG Memantine HCl 10 MG No 1{table t} BID Memantine HCl 10 MG Clopidogrel Bisulfate 75 MG Clopidogrel Bisulfate 75 MG No 1{table t} QD Clopidogre l Bisulfate 75 MG Furosemide 20 mg Furosemide 20 mg No QD Furosemide 20 mg Gabapentin 300 MG Gabapentin 300 MG No BID Gabapentin 300 MG Lisinopril 20 mg Lisinopril 20 mg No 1{table t} Lisinopril 20 mg Donepezil HCl 23 MG Donepezil HCl 23 MG No 1{table t_at_be dtime} QD Donepezil HCl 23 MG Barrington 3 1000 MG Barrington 3 1000 MG No 1{capsu le} TID Barrington 3 1000 MG Lovastatin 20 MG Lovastatin 20 MG No QD Lovastatin 20 MG Glimepiride 2 MG Glimepiride 2 MG No 1{table t_with_ breakfa st_or_t he_firs t_main_ meal_of _the_da y} QD Glimepirid e 2 MG Clopidogrel Bisulfate 75 MG Clopidogrel Bisulfate 75 MG No 1{table t} QD Clopidogre l Bisulfate 75 MG Pseudoeph-B romphen-DM Pseudoeph-B romphen-DM No Pseudoeph- Bromphen-D M Furosemide 20 mg Furosemide 20 mg No QD Furosemide 20 mg Glimepiride 4 MG Glimepiride 4 MG No 1{table t_with_ breakfa st_or_t he_firs t_main_ meal_of _the_da y} QD Glimepirid e 4 MG Zoloft 50 MG Zoloft 50 MG No QD Zoloft 50 MG levETIRAcet am 500 MG levETIRAcet am 500 MG No 1{table t} BID levETIRAce rosario 500 MG Atorvastati n Calcium 20 MG Atorvastati n Calcium 20 MG No 1{table t} QD Atorvastat in Calcium 20 MG Gabapentin 300 MG Gabapentin 300 MG No BID Gabapentin 300 MG Memantine HCl 10 MG Memantine HCl 10 MG No 1{table t} BID Memantine HCl 10 MG Lisinopril 20 mg Lisinopril 20 mg No 1{table t} Lisinopril 20 mg amLODIPine Besylate 10 MG amLODIPine Besylate 10 MG No 1{table t} QD amLODIPine Besylate 10 MG Carvedilol 6.25 MG Carvedilol 6.25 MG No 1{table t} BID Carvedilol 6.25 MG Omeprazole 20 mg Omeprazole 20 mg No QD Omeprazole 20 mg metFORMIN HCl 1000 MG metFORMIN HCl 1000 MG No 1{table t_with_ a_meal} BID metFORMIN HCl 1000 MG Zoloft 50 MG Zoloft 50 MG No QD Zoloft 50 MG Atorvastati n Calcium 20 MG Atorvastati n Calcium 20 MG No 1{table t} QD Atorvastat in Calcium 20 MG Glimepiride 2 MG Glimepiride 2 MG No 1{table t_with_ breakfa st_or_t he_firs t_main_ meal_of _the_da y} QD Glimepirid e 2 MG Glimepiride 4 MG Glimepiride 4 MG No 1{table t_with_ breakfa st_or_t he_firs t_main_ meal_of _the_da y} QD Glimepirid e 4 MG Gabapentin 300 MG Gabapentin 300 MG No BID Gabapentin 300 MG Carvedilol 6.25 MG Carvedilol 6.25 MG No 1{table t} BID Carvedilol 6.25 MG metFORMIN HCl 1000 MG metFORMIN HCl 1000 MG No 1{table t_with_ a_meal} BID metFORMIN HCl 1000 MG Memantine HCl 10 MG Memantine HCl 10 MG No 1{table t} BID Memantine HCl 10 MG levETIRAcet am 500 MG levETIRAcet am 500 MG No 1{table t} BID levETIRAce rosario 500 MG amLODIPine Besylate 10 MG amLODIPine Besylate 10 MG No 1{table t} QD amLODIPine Besylate 10 MG Clopidogrel Bisulfate 75 MG Clopidogrel Bisulfate 75 MG No 1{table t} QD Clopidogre l Bisulfate 75 MG Omeprazole 20 mg Omeprazole 20 mg No QD Omeprazole 20 mg Lisinopril 20 mg Lisinopril 20 mg No 1{table t} Lisinopril 20 mg Furosemide 20 mg Furosemide 20 mg No QD Furosemide 20 mg Glimepiride 4 MG Glimepiride 4 MG No 1{table t_with_ breakfa st_or_t he_firs t_main_ meal_of _the_da y} QD Glimepirid e 4 MG Atorvastati n Calcium 20 MG Atorvastati n Calcium 20 MG No 1{table t} QD Atorvastat in Calcium 20 MG Lisinopril 20 mg Lisinopril 20 mg No 1{table t} Lisinopril 20 mg Zoloft 50 MG Zoloft 50 MG No QD Zoloft 50 MG Furosemide 20 mg Furosemide 20 mg No QD Furosemide 20 mg Aspir-Low 81 MG Aspir-Low 81 MG No 1{table t} QD Aspir-Low 81 MG Omeprazole 20 mg Omeprazole 20 mg No QD Omeprazole 20 mg Clopidogrel Bisulfate 75 MG Clopidogrel Bisulfate 75 MG No 1{table t} QD Clopidogre l Bisulfate 75 MG Glimepiride 2 MG Glimepiride 2 MG No 1{table t_with_ breakfa st_or_t he_firs t_main_ meal_of _the_da y} QD Glimepirid e 2 MG Memantine HCl 10 MG Memantine HCl 10 MG No 1{table t} BID Memantine HCl 10 MG Gabapentin 300 MG Gabapentin 300 MG No BID Gabapentin 300 MG amLODIPine Besylate 10 MG amLODIPine Besylate 10 MG No 1{table t} QD amLODIPine Besylate 10 MG metFORMIN HCl 1000 MG metFORMIN HCl 1000 MG No 1{table t_with_ a_meal} BID metFORMIN HCl 1000 MG Carvedilol 6.25 MG Carvedilol 6.25 MG No 1{table t} BID Carvedilol 6.25 MG levETIRAcet am 500 MG levETIRAcet am 500 MG No 1{table t} BID levETIRAce rosario 500 MG Lisinopril 20 mg Lisinopril 20 mg No 1{table t} Lisinopril 20 mg Memantine HCl 10 MG Memantine HCl 10 MG No 1{table t} BID Memantine HCl 10 MG Glimepiride 4 MG Glimepiride 4 MG No 1{table t_with_ breakfa st_or_t he_firs t_main_ meal_of _the_da y} QD Glimepirid e 4 MG Pseudoeph-B romphen-DM Pseudoeph-B romphen-DM No Pseudoeph- Bromphen-D M Furosemide 20 mg Furosemide 20 mg No QD Furosemide 20 mg Zoloft 50 MG Zoloft 50 MG No QD Zoloft 50 MG Gabapentin 300 MG Gabapentin 300 MG No BID Gabapentin 300 MG Omeprazole 20 mg Omeprazole 20 mg No QD Omeprazole 20 mg levETIRAcet am 500 MG levETIRAcet am 500 MG No 1{table t} BID levETIRAce rosario 500 MG amLODIPine Besylate 10 MG amLODIPine Besylate 10 MG No 1{table t} QD amLODIPine Besylate 10 MG Clopidogrel Bisulfate 75 MG Clopidogrel Bisulfate 75 MG No 1{table t} QD Clopidogre l Bisulfate 75 MG Carvedilol 6.25 MG Carvedilol 6.25 MG No 1{table t} BID Carvedilol 6.25 MG metFORMIN HCl 1000 MG metFORMIN HCl 1000 MG No 1{table t_with_ a_meal} BID metFORMIN HCl 1000 MG Glimepiride 2 MG Glimepiride 2 MG No 1{table t_with_ breakfa st_or_t he_firs t_main_ meal_of _the_da y} QD Glimepirid e 2 MG Atorvastati n Calcium 20 MG Atorvastati n Calcium 20 MG No 1{table t} QD Atorvastat in Calcium 20 MG Glimepiride 2 MG Glimepiride 2 MG No 1{table t_with_ breakfa st_or_t he_firs t_main_ meal_of _the_da y} QD Glimepirid e 2 MG Clopidogrel Bisulfate 75 MG Clopidogrel Bisulfate 75 MG No 1{table t} QD Clopidogre l Bisulfate 75 MG Pseudoeph-B romphen-DM Pseudoeph-B romphen-DM No Pseudoeph- Bromphen-D M Furosemide 20 mg Furosemide 20 mg No QD Furosemide 20 mg Glimepiride 4 MG Glimepiride 4 MG No 1{table t_with_ breakfa st_or_t he_firs t_main_ meal_of _the_da y} QD Glimepirid e 4 MG Zoloft 50 MG Zoloft 50 MG No QD Zoloft 50 MG levETIRAcet am 500 MG levETIRAcet am 500 MG No 1{table t} BID levETIRAce rosario 500 MG Atorvastati n Calcium 20 MG Atorvastati n Calcium 20 MG No 1{table t} QD Atorvastat in Calcium 20 MG Gabapentin 300 MG Gabapentin 300 MG No BID Gabapentin 300 MG Memantine HCl 10 MG Memantine HCl 10 MG No 1{table t} BID Memantine HCl 10 MG Lisinopril 20 mg Lisinopril 20 mg No 1{table t} Lisinopril 20 mg amLODIPine Besylate 10 MG amLODIPine Besylate 10 MG No 1{table t} QD amLODIPine Besylate 10 MG Carvedilol 6.25 MG Carvedilol 6.25 MG No 1{table t} BID Carvedilol 6.25 MG Omeprazole 20 mg Omeprazole 20 mg No QD Omeprazole 20 mg metFORMIN HCl 1000 MG metFORMIN HCl 1000 MG No 1{table t_with_ a_meal} BID metFORMIN HCl 1000 MG Glimepiride 2 MG Glimepiride 2 MG No 1{table t_with_ breakfa st_or_t he_firs t_main_ meal_of _the_da y} QD Glimepirid e 2 MG Clopidogrel Bisulfate 75 MG Clopidogrel Bisulfate 75 MG No 1{table t} QD Clopidogre l Bisulfate 75 MG Pseudoeph-B romphen-DM Pseudoeph-B romphen-DM No Pseudoeph- Bromphen-D M Furosemide 20 mg Furosemide 20 mg No QD Furosemide 20 mg Glimepiride 4 MG Glimepiride 4 MG No 1{table t_with_ breakfa st_or_t he_firs t_main_ meal_of _the y} QD Glimepirid e 4 MG Zoloft 50 MG Zoloft 50 MG No QD Zoloft 50 MG levETIRAcet am 500 MG levETIRAcet am 500 MG No 1{table t} BID levETIRAce rosario 500 MG Atorvastati n Calcium 20 MG Atorvastati n Calcium 20 MG No 1{table t} QD Atorvastat in Calcium 20 MG Gabapentin 300 MG Gabapentin 300 MG No BID Gabapentin 300 MG Memantine HCl 10 MG Memantine HCl 10 MG No 1{table t} BID Memantine HCl 10 MG Lisinopril 20 mg Lisinopril 20 mg No 1{table t} Lisinopril 20 mg amLODIPine Besylate 10 MG amLODIPine Besylate 10 MG No 1{table t} QD amLODIPine Besylate 10 MG Carvedilol 6.25 MG Carvedilol 6.25 MG No 1{table t} BID Carvedilol 6.25 MG Omeprazole 20 mg Omeprazole 20 mg No QD Omeprazole 20 mg metFORMIN HCl 1000 MG metFORMIN HCl 1000 MG No 1{table t_with_ a_meal} BID metFORMIN HCl 1000 MG Glimepiride 2 MG Glimepiride 2 MG No 1{table t_with_ breakfa st_or_t he_firs t_main_ meal_of _the_da y} QD Glimepirid e 2 MG Clopidogrel Bisulfate 75 MG Clopidogrel Bisulfate 75 MG No 1{table t} QD Clopidogre l Bisulfate 75 MG Pseudoeph-B romphen-DM Pseudoeph-B romphen-DM No Pseudoeph- Bromphen-D M Furosemide 20 mg Furosemide 20 mg No QD Furosemide 20 mg Glimepiride 4 MG Glimepiride 4 MG No 1{table t_with_ breakfa st_or_t he_firs t_main_ meal_of _the_da y} QD Glimepirid e 4 MG Zoloft 50 MG Zoloft 50 MG No QD Zoloft 50 MG levETIRAcet am 500 MG levETIRAcet am 500 MG No 1{table t} BID levETIRAce rosario 500 MG Atorvastati n Calcium 20 MG Atorvastati n Calcium 20 MG No 1{table t} QD Atorvastat in Calcium 20 MG Gabapentin 300 MG Gabapentin 300 MG No BID Gabapentin 300 MG Memantine HCl 10 MG Memantine HCl 10 MG No 1{table t} BID Memantine HCl 10 MG Lisinopril 20 mg Lisinopril 20 mg No 1{table t} Lisinopril 20 mg amLODIPine Besylate 10 MG amLODIPine Besylate 10 MG No 1{table t} QD amLODIPine Besylate 10 MG Carvedilol 6.25 MG Carvedilol 6.25 MG No 1{table t} BID Carvedilol 6.25 MG Omeprazole 20 mg Omeprazole 20 mg No QD Omeprazole 20 mg metFORMIN HCl 1000 MG metFORMIN HCl 1000 MG No 1{table t_with_ a_meal} BID metFORMIN HCl 1000 MG Glimepiride 2 MG Glimepiride 2 MG No 1{table t_with_ breakfa st_or_t he_firs t_main_ meal_of _the_da y} QD Glimepirid e 2 MG Clopidogrel Bisulfate 75 MG Clopidogrel Bisulfate 75 MG No 1{table t} QD Clopidogre l Bisulfate 75 MG Pseudoeph-B romphen-DM Pseudoeph-B romphen-DM No Pseudoeph- Bromphen-D M Furosemide 20 mg Furosemide 20 mg No QD Furosemide 20 mg Glimepiride 4 MG Glimepiride 4 MG No 1{table t_with_ breakfa st_or_t he_firs t_main_ meal_of _the_da y} QD Glimepirid e 4 MG Zoloft 50 MG Zoloft 50 MG No QD Zoloft 50 MG levETIRAcet am 500 MG levETIRAcet am 500 MG No 1{table t} BID levETIRAce rosario 500 MG Atorvastati n Calcium 20 MG Atorvastati n Calcium 20 MG No 1{table t} QD Atorvastat in Calcium 20 MG Gabapentin 300 MG Gabapentin 300 MG No BID Gabapentin 300 MG Memantine HCl 10 MG Memantine HCl 10 MG No 1{table t} BID Memantine HCl 10 MG Lisinopril 20 mg Lisinopril 20 mg No 1{table t} Lisinopril 20 mg amLODIPine Besylate 10 MG amLODIPine Besylate 10 MG No 1{table t} QD amLODIPine Besylate 10 MG Carvedilol 6.25 MG Carvedilol 6.25 MG No 1{table t} BID Carvedilol 6.25 MG Omeprazole 20 mg Omeprazole 20 mg No QD Omeprazole 20 mg metFORMIN HCl 1000 MG metFORMIN HCl 1000 MG No 1{table t_with_ a_meal} BID metFORMIN HCl 1000 MG Lisinopril 20 mg Lisinopril 20 mg No 1{table t} Lisinopril 20 mg Zoloft 50 MG Zoloft 50 MG No QD Zoloft 50 MG Glimepiride 2 MG Glimepiride 2 MG No 1{table t_with_ breakfa st_or_t he_firs t_main_ meal_of _the_da y} QD Glimepirid e 2 MG levETIRAcet am 500 MG levETIRAcet am 500 MG No 1{table t} BID levETIRAce rosario 500 MG Atorvastati n Calcium 20 MG Atorvastati n Calcium 20 MG No 1{table t} QD Atorvastat in Calcium 20 MG metFORMIN HCl 1000 MG metFORMIN HCl 1000 MG No 1{table t_with_ a_meal} BID metFORMIN HCl 1000 MG Omeprazole 20 mg Omeprazole 20 mg No QD Omeprazole 20 mg Glimepiride 4 MG Glimepiride 4 MG No 1{table t_with_ breakfa st_or_t he_firs t_main_ meal_of _the_da y} QD Glimepirid e 4 MG Clopidogrel Bisulfate 75 MG Clopidogrel Bisulfate 75 MG No 1{table t} QD Clopidogre l Bisulfate 75 MG Furosemide 20 mg Furosemide 20 mg No QD Furosemide 20 mg Carvedilol 6.25 MG Carvedilol 6.25 MG No 1{table t} BID Carvedilol 6.25 MG amLODIPine Besylate 10 MG amLODIPine Besylate 10 MG No 1{table t} QD amLODIPine Besylate 10 MG Gabapentin 300 MG Gabapentin 300 MG No BID Gabapentin 300 MG Memantine HCl 10 MG Memantine HCl 10 MG No 1{table t} BID Memantine HCl 10 MG Atorvastati n Calcium 20 MG Atorvastati n Calcium 20 MG No 1{table t} QD Atorvastat in Calcium 20 MG Zoloft 50 MG Zoloft 50 MG No QD Zoloft 50 MG levETIRAcet am 500 MG levETIRAcet am 500 MG No 1{table t} BID levETIRAce rosario 500 MG Carvedilol 6.25 MG Carvedilol 6.25 MG No 1{table t} BID Carvedilol 6.25 MG Omeprazole 20 mg Omeprazole 20 mg No QD Omeprazole 20 mg metFORMIN HCl 1000 MG metFORMIN HCl 1000 MG No 1{table t_with_ a_meal} BID metFORMIN HCl 1000 MG Gabapentin 300 MG Gabapentin 300 MG No BID Gabapentin 300 MG Clopidogrel Bisulfate 75 MG Clopidogrel Bisulfate 75 MG No 1{table t} QD Clopidogre l Bisulfate 75 MG Glimepiride 2 MG Glimepiride 2 MG No 1{table t_with_ breakfa st_or_t he_firs t_main_ meal_of _the_da y} QD Glimepirid e 2 MG Memantine HCl 10 MG Memantine HCl 10 MG No 1{table t} BID Memantine HCl 10 MG Furosemide 20 mg Furosemide 20 mg No QD Furosemide 20 mg Lisinopril 20 mg Lisinopril 20 mg No 1{table t} Lisinopril 20 mg amLODIPine Besylate 10 MG amLODIPine Besylate 10 MG No 1{table t} QD amLODIPine Besylate 10 MG Glimepiride 4 MG Glimepiride 4 MG No 1{table t_with_ breakfa st_or_t he_firs t_main_ meal_of _the_da y} QD Glimepirid e 4 MG Pseudoeph-B romphen-DM Pseudoeph-B romphen-DM No Pseudoeph- Bromphen-D M Glimepiride 2 MG Glimepiride 2 MG No 1{table t_with_ breakfa st_or_t he_firs t_main_ meal_of _the_da y} QD Glimepirid e 2 MG Omeprazole 20 mg Omeprazole 20 mg No QD Omeprazole 20 mg Lisinopril 20 mg Lisinopril 20 mg No 1{table t} Lisinopril 20 mg Zoloft 50 MG Zoloft 50 MG No QD Zoloft 50 MG Memantine HCl 10 MG Memantine HCl 10 MG No 1{table t} BID Memantine HCl 10 MG Carvedilol 6.25 MG Carvedilol 6.25 MG No 1{table t} BID Carvedilol 6.25 MG metFORMIN HCl 1000 MG metFORMIN HCl 1000 MG No 1{table t_with_ a_meal} BID metFORMIN HCl 1000 MG levETIRAcet am 500 MG levETIRAcet am 500 MG No 1{table t} BID levETIRAce rosario 500 MG amLODIPine Besylate 10 MG amLODIPine Besylate 10 MG No 1{table t} QD amLODIPine Besylate 10 MG Clopidogrel Bisulfate 75 MG Clopidogrel Bisulfate 75 MG No 1{table t} QD Clopidogre l Bisulfate 75 MG Atorvastati n Calcium 20 MG Atorvastati n Calcium 20 MG No 1{table t} QD Atorvastat in Calcium 20 MG Furosemide 20 mg Furosemide 20 mg No QD Furosemide 20 mg Glimepiride 4 MG Glimepiride 4 MG No 1{table t_with_ breakfa st_or_t he_firs t_main_ meal_of _the_da y} QD Glimepirid e 4 MG Gabapentin 300 MG Gabapentin 300 MG No BID Gabapentin 300 MG Furosemide 20 mg Furosemide 20 mg No QD Furosemide 20 mg Memantine HCl 10 MG Memantine HCl 10 MG No 1{table t} BID Memantine HCl 10 MG Glimepiride 4 MG Glimepiride 4 MG No 1{table t_with_ breakfa st_or_t he_firs t_main_ meal_of _the_da y} QD Glimepirid e 4 MG Lisinopril 20 mg Lisinopril 20 mg No 1{table t} Lisinopril 20 mg Gabapentin 300 MG Gabapentin 300 MG No BID Gabapentin 300 MG Glimepiride 2 MG Glimepiride 2 MG No 1{table t_with_ breakfa st_or_t he_firs t_main_ meal_of _the_da y} QD Glimepirid e 2 MG metFORMIN HCl 1000 MG metFORMIN HCl 1000 MG No 1{table t_with_ a_meal} BID metFORMIN HCl 1000 MG levETIRAcet am 500 MG levETIRAcet am 500 MG No 1{table t} BID levETIRAce rosario 500 MG Atorvastati n Calcium 20 MG Atorvastati n Calcium 20 MG No 1{table t} QD Atorvastat in Calcium 20 MG Clopidogrel Bisulfate 75 MG Clopidogrel Bisulfate 75 MG No 1{table t} QD Clopidogre l Bisulfate 75 MG Carvedilol 6.25 MG Carvedilol 6.25 MG No 1{table t} BID Carvedilol 6.25 MG amLODIPine Besylate 10 MG amLODIPine Besylate 10 MG No 1{table t} QD amLODIPine Besylate 10 MG Omeprazole 20 mg Omeprazole 20 mg No QD Omeprazole 20 mg Zoloft 50 MG Zoloft 50 MG No QD Zoloft 50 MG metFORMIN HCl 1000 MG metFORMIN HCl 1000 MG No 1{table t_with_ a_meal} BID metFORMIN HCl 1000 MG Glimepiride 4 MG Glimepiride 4 MG No 1{table t_with_ breakfa st_or_t he_firs t_main_ meal_of _the_da y} QD Glimepirid e 4 MG amLODIPine Besylate 10 MG amLODIPine Besylate 10 MG No 1{table t} QD amLODIPine Besylate 10 MG Zoloft 50 MG Zoloft 50 MG No QD Zoloft 50 MG Aspir-Low 81 MG Aspir-Low 81 MG No 1{table t} QD Aspir-Low 81 MG Omeprazole 20 mg Omeprazole 20 mg No QD Omeprazole 20 mg Glimepiride 2 MG Glimepiride 2 MG No 1{table t_with_ breakfa st_or_t he_firs t_main_ meal_of _the_da y} QD Glimepirid e 2 MG Carvedilol 6.25 MG Carvedilol 6.25 MG No 1{table t} BID Carvedilol 6.25 MG Atorvastati n Calcium 20 MG Atorvastati n Calcium 20 MG No 1{table t} QD Atorvastat in Calcium 20 MG levETIRAcet am 500 MG levETIRAcet am 500 MG No 1{table t} BID levETIRAce rosario 500 MG Memantine HCl 10 MG Memantine HCl 10 MG No 1{table t} BID Memantine HCl 10 MG Clopidogrel Bisulfate 75 MG Clopidogrel Bisulfate 75 MG No 1{table t} QD Clopidogre l Bisulfate 75 MG Furosemide 20 mg Furosemide 20 mg No QD Furosemide 20 mg Gabapentin 300 MG Gabapentin 300 MG No BID Gabapentin 300 MG Lisinopril 20 mg Lisinopril 20 mg No 1{table t} Lisinopril 20 mg metFORMIN HCl 1000 MG metFORMIN HCl 1000 MG No 1{table t_with_ a_meal} BID metFORMIN HCl 1000 MG Glimepiride 4 MG Glimepiride 4 MG No 1{table t_with_ breakfa st_or_t he_firs t_main_ meal_of _the_da y} QD Glimepirid e 4 MG amLODIPine Besylate 10 MG amLODIPine Besylate 10 MG No 1{table t} QD amLODIPine Besylate 10 MG Zoloft 50 MG Zoloft 50 MG No QD Zoloft 50 MG Aspir-Low 81 MG Aspir-Low 81 MG No 1{table t} QD Aspir-Low 81 MG Omeprazole 20 mg Omeprazole 20 mg No QD Omeprazole 20 mg Glimepiride 2 MG Glimepiride 2 MG No 1{table t_with_ breakfa st_or_t he_firs t_main_ meal_of _the_da y} QD Glimepirid e 2 MG Carvedilol 6.25 MG Carvedilol 6.25 MG No 1{table t} BID Carvedilol 6.25 MG Atorvastati n Calcium 20 MG Atorvastati n Calcium 20 MG No 1{table t} QD Atorvastat in Calcium 20 MG levETIRAcet am 500 MG levETIRAcet am 500 MG No 1{table t} BID levETIRAce rosario 500 MG Memantine HCl 10 MG Memantine HCl 10 MG No 1{table t} BID Memantine HCl 10 MG Clopidogrel Bisulfate 75 MG Clopidogrel Bisulfate 75 MG No 1{table t} QD Clopidogre l Bisulfate 75 MG Furosemide 20 mg Furosemide 20 mg No QD Furosemide 20 mg Gabapentin 300 MG Gabapentin 300 MG No BID Gabapentin 300 MG Pseudoeph-B romphen-DM Pseudoeph-B romphen-DM No Pseudoeph- Bromphen-D M Lisinopril 20 mg Lisinopril 20 mg No 1{table t} Lisinopril 20 mg metFORMIN HCl 1000 MG metFORMIN HCl 1000 MG No 1{table t_with_ a_meal} BID metFORMIN HCl 1000 MG Glimepiride 4 MG Glimepiride 4 MG No 1{table t_with_ breakfa st_or_t he_firs t_main_ meal_of _the_da y} QD Glimepirid e 4 MG amLODIPine Besylate 10 MG amLODIPine Besylate 10 MG No 1{table t} QD amLODIPine Besylate 10 MG Zoloft 50 MG Zoloft 50 MG No QD Zoloft 50 MG Aspir-Low 81 MG Aspir-Low 81 MG No 1{table t} QD Aspir-Low 81 MG Omeprazole 20 mg Omeprazole 20 mg No QD Omeprazole 20 mg Glimepiride 2 MG Glimepiride 2 MG No 1{table t_with_ breakfa st_or_t he_firs t_main_ meal_of _the_da y} QD Glimepirid e 2 MG Carvedilol 6.25 MG Carvedilol 6.25 MG No 1{table t} BID Carvedilol 6.25 MG Atorvastati n Calcium 20 MG Atorvastati n Calcium 20 MG No 1{table t} QD Atorvastat in Calcium 20 MG levETIRAcet am 500 MG levETIRAcet am 500 MG No 1{table t} BID levETIRAce rosario 500 MG Memantine HCl 10 MG Memantine HCl 10 MG No 1{table t} BID Memantine HCl 10 MG Clopidogrel Bisulfate 75 MG Clopidogrel Bisulfate 75 MG No 1{table t} QD Clopidogre l Bisulfate 75 MG Furosemide 20 mg Furosemide 20 mg No QD Furosemide 20 mg Gabapentin 300 MG Gabapentin 300 MG No BID Gabapentin 300 MG Lisinopril 20 mg Lisinopril 20 mg No 1{table t} Lisinopril 20 mg metFORMIN HCl 1000 MG metFORMIN HCl 1000 MG No 1{table t_with_ a_meal} BID metFORMIN HCl 1000 MG Glimepiride 4 MG Glimepiride 4 MG No 1{table t_with_ breakfa st_or_t he_firs t_main_ meal_of _the_da y} QD Glimepirid e 4 MG amLODIPine Besylate 10 MG amLODIPine Besylate 10 MG No 1{table t} QD amLODIPine Besylate 10 MG Zoloft 50 MG Zoloft 50 MG No QD Zoloft 50 MG Aspir-Low 81 MG Aspir-Low 81 MG No 1{table t} QD Aspir-Low 81 MG Omeprazole 20 mg Omeprazole 20 mg No QD Omeprazole 20 mg Glimepiride 2 MG Glimepiride 2 MG No 1{table t_with_ breakfa st_or_t he_firs t_main_ meal_of _the_da y} QD Glimepirid e 2 MG Carvedilol 6.25 MG Carvedilol 6.25 MG No 1{table t} BID Carvedilol 6.25 MG Atorvastati n Calcium 20 MG Atorvastati n Calcium 20 MG No 1{table t} QD Atorvastat in Calcium 20 MG levETIRAcet am 500 MG levETIRAcet am 500 MG No 1{table t} BID levETIRAce rosario 500 MG Memantine HCl 10 MG Memantine HCl 10 MG No 1{table t} BID Memantine HCl 10 MG Clopidogrel Bisulfate 75 MG Clopidogrel Bisulfate 75 MG No 1{table t} QD Clopidogre l Bisulfate 75 MG Furosemide 20 mg Furosemide 20 mg No QD Furosemide 20 mg Gabapentin 300 MG Gabapentin 300 MG No BID Gabapentin 300 MG Lisinopril 20 mg Lisinopril 20 mg No 1{table t} Lisinopril 20 mg metFORMIN HCl 1000 MG metFORMIN HCl 1000 MG No 1{table t_with_ a_meal} BID metFORMIN HCl 1000 MG Glimepiride 4 MG Glimepiride 4 MG No 1{table t_with_ breakfa st_or_t he_firs t_main_ meal_of _the_da y} QD Glimepirid e 4 MG amLODIPine Besylate 10 MG amLODIPine Besylate 10 MG No 1{table t} QD amLODIPine Besylate 10 MG Zoloft 50 MG Zoloft 50 MG No QD Zoloft 50 MG Aspir-Low 81 MG Aspir-Low 81 MG No 1{table t} QD Aspir-Low 81 MG Omeprazole 20 mg Omeprazole 20 mg No QD Omeprazole 20 mg Glimepiride 2 MG Glimepiride 2 MG No 1{table t_with_ breakfa st_or_t he_firs t_main_ meal_of _the_da y} QD Glimepirid e 2 MG Carvedilol 6.25 MG Carvedilol 6.25 MG No 1{table t} BID Carvedilol 6.25 MG Atorvastati n Calcium 20 MG Atorvastati n Calcium 20 MG No 1{table t} QD Atorvastat in Calcium 20 MG levETIRAcet am 500 MG levETIRAcet am 500 MG No 1{table t} BID levETIRAce rosario 500 MG Memantine HCl 10 MG Memantine HCl 10 MG No 1{table t} BID Memantine HCl 10 MG Clopidogrel Bisulfate 75 MG Clopidogrel Bisulfate 75 MG No 1{table t} QD Clopidogre l Bisulfate 75 MG Furosemide 20 mg Furosemide 20 mg No QD Furosemide 20 mg Gabapentin 300 MG Gabapentin 300 MG No BID Gabapentin 300 MG Lisinopril 20 mg Lisinopril 20 mg No 1{table t} Lisinopril 20 mg metFORMIN HCl 1000 MG metFORMIN HCl 1000 MG No 1{table t_with_ a_meal} BID metFORMIN HCl 1000 MG Glimepiride 4 MG Glimepiride 4 MG No 1{table t_with_ breakfa st_or_t he_firs t_main_ meal_of _the_da y} QD Glimepirid e 4 MG amLODIPine Besylate 10 MG amLODIPine Besylate 10 MG No 1{table t} QD amLODIPine Besylate 10 MG Zoloft 50 MG Zoloft 50 MG No QD Zoloft 50 MG Aspir-Low 81 MG Aspir-Low 81 MG No 1{table t} QD Aspir-Low 81 MG Omeprazole 20 mg Omeprazole 20 mg No QD Omeprazole 20 mg Glimepiride 2 MG Glimepiride 2 MG No 1{table t_with_ breakfa st_or_t he_firs t_main_ meal_of _the_da y} QD Glimepirid e 2 MG Carvedilol 6.25 MG Carvedilol 6.25 MG No 1{table t} BID Carvedilol 6.25 MG Atorvastati n Calcium 20 MG Atorvastati n Calcium 20 MG No 1{table t} QD Atorvastat in Calcium 20 MG levETIRAcet am 500 MG levETIRAcet am 500 MG No 1{table t} BID levETIRAce rosario 500 MG Memantine HCl 10 MG Memantine HCl 10 MG No 1{table t} BID Memantine HCl 10 MG Clopidogrel Bisulfate 75 MG Clopidogrel Bisulfate 75 MG No 1{table t} QD Clopidogre l Bisulfate 75 MG Furosemide 20 mg Furosemide 20 mg No QD Furosemide 20 mg Gabapentin 300 MG Gabapentin 300 MG No BID Gabapentin 300 MG Lisinopril 20 mg Lisinopril 20 mg No 1{table t} Lisinopril 20 mg metFORMIN HCl 1000 MG metFORMIN HCl 1000 MG No 1{table t_with_ a_meal} BID metFORMIN HCl 1000 MG Glimepiride 4 MG Glimepiride 4 MG No 1{table t_with_ breakfa st_or_t he_firs t_main_ meal_of _the_da y} QD Glimepirid e 4 MG amLODIPine Besylate 10 MG amLODIPine Besylate 10 MG No 1{table t} QD amLODIPine Besylate 10 MG Zoloft 50 MG Zoloft 50 MG No QD Zoloft 50 MG Aspir-Low 81 MG Aspir-Low 81 MG No 1{table t} QD Aspir-Low 81 MG Omeprazole 20 mg Omeprazole 20 mg No QD Omeprazole 20 mg Glimepiride 2 MG Glimepiride 2 MG No 1{table t_with_ breakfa st_or_t he_firs t_main_ meal_of _the_da y} QD Glimepirid e 2 MG Carvedilol 6.25 MG Carvedilol 6.25 MG No 1{table t} BID Carvedilol 6.25 MG Atorvastati n Calcium 20 MG Atorvastati n Calcium 20 MG No 1{table t} QD Atorvastat in Calcium 20 MG levETIRAcet am 500 MG levETIRAcet am 500 MG No 1{table t} BID levETIRAce rosario 500 MG Memantine HCl 10 MG Memantine HCl 10 MG No 1{table t} BID Memantine HCl 10 MG Clopidogrel Bisulfate 75 MG Clopidogrel Bisulfate 75 MG No 1{table t} QD Clopidogre l Bisulfate 75 MG Furosemide 20 mg Furosemide 20 mg No QD Furosemide 20 mg Gabapentin 300 MG Gabapentin 300 MG No BID Gabapentin 300 MG Lisinopril 20 mg Lisinopril 20 mg No 1{table t} Lisinopril 20 mg metFORMIN HCl 1000 MG metFORMIN HCl 1000 MG No 1{table t_with_ a_meal} BID metFORMIN HCl 1000 MG Glimepiride 4 MG Glimepiride 4 MG No 1{table t_with_ breakfa st_or_t he_firs t_main_ meal_of _the_da y} QD Glimepirid e 4 MG amLODIPine Besylate 10 MG amLODIPine Besylate 10 MG No 1{table t} QD amLODIPine Besylate 10 MG Zoloft 50 MG Zoloft 50 MG No QD Zoloft 50 MG Aspir-Low 81 MG Aspir-Low 81 MG No 1{table t} QD Aspir-Low 81 MG Omeprazole 20 mg Omeprazole 20 mg No QD Omeprazole 20 mg Glimepiride 2 MG Glimepiride 2 MG No 1{table t_with_ breakfa st_or_t he_firs t_main_ meal_of _the_da y} QD Glimepirid e 2 MG Carvedilol 6.25 MG Carvedilol 6.25 MG No 1{table t} BID Carvedilol 6.25 MG Atorvastati n Calcium 20 MG Atorvastati n Calcium 20 MG No 1{table t} QD Atorvastat in Calcium 20 MG levETIRAcet am 500 MG levETIRAcet am 500 MG No 1{table t} BID levETIRAce rosario 500 MG Memantine HCl 10 MG Memantine HCl 10 MG No 1{table t} BID Memantine HCl 10 MG Clopidogrel Bisulfate 75 MG Clopidogrel Bisulfate 75 MG No 1{table t} QD Clopidogre l Bisulfate 75 MG Furosemide 20 mg Furosemide 20 mg No QD Furosemide 20 mg Gabapentin 300 MG Gabapentin 300 MG No BID Gabapentin 300 MG Lisinopril 20 mg Lisinopril 20 mg No 1{table t} Lisinopril 20 mg metFORMIN HCl 1000 MG metFORMIN HCl 1000 MG No 1{table t_with_ a_meal} BID metFORMIN HCl 1000 MG Glimepiride 4 MG Glimepiride 4 MG No 1{table t_with_ breakfa st_or_t he_firs t_main_ meal_of _the_da y} QD Glimepirid e 4 MG amLODIPine Besylate 10 MG amLODIPine Besylate 10 MG No 1{table t} QD amLODIPine Besylate 10 MG Zoloft 50 MG Zoloft 50 MG No QD Zoloft 50 MG Aspir-Low 81 MG Aspir-Low 81 MG No 1{table t} QD Aspir-Low 81 MG Omeprazole 20 mg Omeprazole 20 mg No QD Omeprazole 20 mg Glimepiride 2 MG Glimepiride 2 MG No 1{table t_with_ breakfa st_or_t he_firs t_main_ meal_of _the_da y} QD Glimepirid e 2 MG Carvedilol 6.25 MG Carvedilol 6.25 MG No 1{table t} BID Carvedilol 6.25 MG Atorvastati n Calcium 20 MG Atorvastati n Calcium 20 MG No 1{table t} QD Atorvastat in Calcium 20 MG levETIRAcet am 500 MG levETIRAcet am 500 MG No 1{table t} BID levETIRAce rosario 500 MG Memantine HCl 10 MG Memantine HCl 10 MG No 1{table t} BID Memantine HCl 10 MG Clopidogrel Bisulfate 75 MG Clopidogrel Bisulfate 75 MG No 1{table t} QD Clopidogre l Bisulfate 75 MG Furosemide 20 mg Furosemide 20 mg No QD Furosemide 20 mg Gabapentin 300 MG Gabapentin 300 MG No BID Gabapentin 300 MG Lisinopril 20 mg Lisinopril 20 mg No 1{table t} Lisinopril 20 mg metFORMIN HCl 1000 MG metFORMIN HCl 1000 MG No 1{table t_with_ a_meal} BID metFORMIN HCl 1000 MG Glimepiride 4 MG Glimepiride 4 MG No 1{table t_with_ breakfa st_or_t he_firs t_main_ meal_of _the_da y} QD Glimepirid e 4 MG Immunizations Ordered Immunization Name Filled Immunization Name Date Status Comments Source Bupivicaine [place] Bupivicaine [place] 2020-09-21 08:54:00 [facility] Kenalog (Triamcinolone) Kenalog (Triamcinolone) 2020-09-21 08:54:00 [facility] Kenalog (Triamcinolone) Kenalog (Triamcinolone) 2020-08-21 11:20:00 Completed [facility] Bupivicaine [place] Bupivicaine [place] 2020-08-21 11:19:00 Completed [facility] SARS-COV-2 COVID-19 PFIZER VACCINE 2020-08-11 00:00:00 Completed [facility] SARS-COV-2 COVID-19 PFIZER VACCINE 2020-08-11 00:00:00 Completed [facility] SARS-COV-2 COVID-19 PFIZER VACCINE 2020-08-11 00:00:00 Completed [facility] SARS-COV-2 COVID-19 PFIZER VACCINE 2020-07-18 00:00:00 Completed [facility] SARS-COV-2 COVID-19 PFIZER VACCINE 2020-07-18 00:00:00 Completed [facility] SARS-COV-2 COVID-19 PFIZER VACCINE 2020-07-18 00:00:00 Completed [facility] Vital Signs Vital Name Observation Time Observation Value Comments S ource height 2023-08-11 13:15:00 63.00 [in_i] Com [facility] weight 2023-08-11 13:15:00 209 [lb_av] Comm on [facility] temperature 2023-08-11 13:15:00 98.0 [degF] Com [facility] bmi 2023-08-11 13:15:00 37.02 kg/m2 Comm on [facility] blood pressure systolic 2023-08-11 13:15:00 136 mm[Hg] Common [facility] blood pressure diastolic 2023-08-11 13:15:00 84 mm[Hg] [facility] height 2023-01-16 13:00:00 63.00 [in_i] Com [facility] weight 2023-01-16 13:00:00 207.9 [lb_av] Co mmon [facility] temperature 2023-01-16 13:00:00 98.3 [degF] Com [facility] bmi 2023-01-16 13:00:00 36.82 kg/m2 Comm on [facility] blood pressure systolic 2023-01-16 13:00:00 134 mm[Hg] [facility] blood pressure diastolic 2023-01-16 13:00:00 72 mm[Hg] Common [facility] height 2022-10-15 10:00:00 63.00 [in_i] Com [facility] weight 2022-10-15 10:00:00 200 [lb_av] Comm on [facility] temperature 2022-10-15 10:00:00 98.7 [degF] Com [facility] bmi 2022-10-15 10:00:00 35.42 kg/m2 Comm on [facility] blood pressure systolic 2022-10-15 10:00:00 129 mm[Hg] [facility] blood pressure diastolic 2022-10-15 10:00:00 81 mm[Hg] [facility] height 2022-08-26 09:00:00 63.00 [in_i] Com [facility] weight 2022-08-26 09:00:00 200 [lb_av] Comm on [facility] temperature 2022-08-26 09:00:00 98.4 [degF] Com [facility] bmi 2022-08-26 09:00:00 35.42 kg/m2 Comm on [facility] blood pressure systolic 2022-08-26 09:00:00 131 mm[Hg] Common [facility] blood pressure diastolic 2022-08-26 09:00:00 81 mm[Hg] Common [facility] height 2022-08-22 08:30:00 63.00 [in_i] Com [facility] weight 2022-08-22 08:30:00 200.0 [lb_av] Co mmon [facility] bmi 2022-08-22 08:30:00 35.42 kg/m2 Comm on [facility] blood pressure systolic 2022-08-22 08:30:00 126 mm[Hg] [facility] blood pressure diastolic 2022-08-22 08:30:00 74 mm[Hg] Common [facility] height 2022-08-01 08:00:00 63.00 [in_i] Com [facility] weight 2022-08-01 08:00:00 200 [lb_av] Comm on [facility] temperature 2022-08-01 08:00:00 98.2 [degF] Com [facility] bmi 2022-08-01 08:00:00 35.42 kg/m2 Comm on [facility] blood pressure systolic 2022-08-01 08:00:00 128 mm[Hg] [facility] blood pressure diastolic 2022-08-01 08:00:00 72 mm[Hg] [facility] height 2022-07-25 14:00:00 63.00 [in_i] Com [facility] weight 2022-07-25 14:00:00 200 [lb_av] Comm on [facility] temperature 2022-07-25 14:00:00 98.4 [degF] Com [facility] bmi 2022-07-25 14:00:00 35.42 kg/m2 Comm on [facility] blood pressure systolic 2022-07-25 14:00:00 129 mm[Hg] Common [facility] blood pressure diastolic 2022-07-25 14:00:00 79 mm[Hg] Common [facility] height 2022-07-11 10:30:00 63.00 [in_i] Com [facility] weight 2022-07-11 10:30:00 200 [lb_av] Comm on [facility] temperature 2022-07-11 10:30:00 97.6 [degF] Com [facility] bmi 2022-07-11 10:30:00 35.42 kg/m2 Comm on [facility] blood pressure systolic 2022-07-11 10:30:00 136 mm[Hg] [facility] blood pressure diastolic 2022-07-11 10:30:00 78 mm[Hg] [facility] height 2022-04-09 09:00:00 63.00 [in_i] Com [facility] weight 2022-04-09 09:00:00 200.3 [lb_av] Co [facility] temperature 2022-04-09 09:00:00 98.0 [degF] Com [facility] bmi 2022-04-09 09:00:00 35.48 kg/m2 Comm on [facility] blood pressure systolic 2022-04-09 09:00:00 131 mm[Hg] [facility] blood pressure diastolic 2022-04-09 09:00:00 81 mm[Hg] Common [facility] height 2022-03-18 10:00:00 63.00 [in_i] Com [facility] weight 2022-03-18 10:00:00 203 [lb_av] Comm on [facility] temperature 2022-03-18 10:00:00 97.8 [degF] Com [facility] bmi 2022-03-18 10:00:00 35.96 kg/m2 Comm on [facility] blood pressure systolic 2022-03-18 10:00:00 129 mm[Hg] Common [facility]iri t [facility] blood pressure diastolic 2022-03-18 10:00:00 76 mm[Hg] Common [facility] height 2022-01-31 10:30:00 63.00 [in_i] Com [facility] weight 2022-01-31 10:30:00 203 [lb_av] Comm on [facility] temperature 2022-01-31 10:30:00 97.6 [degF] Com [facility] bmi 2022-01-31 10:30:00 35.96 kg/m2 Comm on [facility] blood pressure systolic 2022-01-31 10:30:00 132 mm[Hg] Common Spiri t [facility] blood pressure diastolic 2022-01-31 10:30:00 84 mm[Hg] [facility] height 2022-01-03 11:00:00 63.00 [in_i] Com [facility] weight 2022-01-03 11:00:00 203 [lb_av] Comm on [facility] temperature 2022-01-03 11:00:00 97.3 [degF] Com [facility] bmi 2022-01-03 11:00:00 35.96 kg/m2 Comm on [facility] blood pressure systolic 2022-01-03 11:00:00 136 mm[Hg] Common Spiri t [facility] blood pressure diastolic 2022-01-03 11:00:00 80 mm[Hg] [facility] height 2021-12-17 11:15:00 63.00 [in_i] Com [facility] weight 2021-12-17 11:15:00 203.4 [lb_av] Co mmon [facility] temperature 2021-12-17 11:15:00 97.8 [degF] Com [facility] bmi 2021-12-17 11:15:00 36.03 kg/m2 Comm on [facility] blood pressure systolic 2021-12-17 11:15:00 138 mm[Hg] [facility] blood pressure diastolic 2021-12-17 11:15:00 80 mm[Hg] [facility] height 2021-10-02 08:45:00 63.00 [in_i] Com [facility] weight 2021-10-02 08:45:00 204 [lb_av] Comm on [facility] bmi 2021-10-02 08:45:00 36.13 kg/m2 Comm on [facility] blood pressure systolic 2021-10-02 08:45:00 143 mm[Hg] Common [facility] blood pressure diastolic 2021-10-02 08:45:00 84 mm[Hg] Common [facility] height 2021-07-03 11:00:00 63.00 [in_i] Com [facility] weight 2021-07-03 11:00:00 204.9 [lb_av] Co mmon [facility] temperature 2021-07-03 11:00:00 97.2 [degF] Com [facility] bmi 2021-07-03 11:00:00 36.29 kg/m2 Comm on [facility] blood pressure systolic 2021-07-03 11:00:00 144 mm[Hg] Common [facility] blood pressure diastolic 2021-07-03 11:00:00 86 mm[Hg] Common [facility] Body height 2020-11-24 15:14:00 162.6 cm [facility] Body weight 2020-11-24 15:14:00 95.255 kg [facility] BMI 2020-11-24 15:14:00 36.05 kg/m2 [facility] Oxygen saturation in Arterial blood by Pulse oximetry 2020-11-24 15:14:00 99 /min [facility] Systolic blood pressure 2020-11-24 15:14:00 134 mm[Hg] [facility] Diastolic blood pressure 2020-11-24 15:14:00 86 mm[Hg] [facility] Heart rate 2020-11-24 15:14:00 67 /min [facility] Body temperature 2020-11-24 15:14:00 36.94 Zakiya [facility] Respiratory rate 2020-11-24 15:14:00 14 /min [facility] Procedures Procedure Date / Time Performed Performing Clinicia n Source XR ELBOW >3 VW RIGHT 2020-11-24 15:37:33 Terrance Zacarias [facility] NOTICE OF PRIVACY PRACTICES 2020-11-24 14:45:40 Doctor Unassigned, Vicco [facility] SARS-COV-2 COVID-19 VACCINE,0.3ML,IM (PFIZER) 2020-08-11 17:02:20 Doctor Unassigned, Vicco [facility] Plan of Care Planned Activity Planned Date Details Comments Source Future Scheduled Test 2020-12-06 00:00:00 INFLUENZA VACCINE (Season Ended) [code = INFLUENZA VACCINE (Season Ended)] [facility] Future Scheduled Test 2019-10-15 00:00:00 Medicare Annual Wellness Visit (procedure) [code = 882672377270571] [facility] Scheduled Test 2019-10-15 00:00:00 Screening for osteoporosis (procedure) [code = 540221587] [facility] Scheduled Test 2019-10-15 00:00:00 PNEUMOCOCCAL VACCINES 65+ (1 of 1 - PPSV23) [code = PNEUMOCOCCAL VACCINES 65+ (1 of 1 - PPSV23)] [facility] Scheduled Test 2018-08-19 00:00:00 Creatinine measurement (procedure) [code = 70577744] [facility] Future Scheduled Test 2018-08-17 00:00:00 Calculated low density lipoprotein cholesterol level (procedure) [code = 935523797] [facility] Future Scheduled Test 2018-02-17 00:00:00 Hemoglobin A1c measurement (procedure) [code = 45774718] [facility] Scheduled Test 2007-02-26 00:00:00 Microalbumin measurement, urine, quantitative (procedure) [code = 187307793] [facility] Future Scheduled Test 2004 00:00:00 Screening for occult blood in feces (procedure) [code = 431261806] [facility] Future Scheduled Test 2004 00:00:00 Stool DNA-based colorectal cancer screening (procedure) [code = 185905589866701] [facility] Future Scheduled Test 2004 00:00:00 Flexible fiberoptic sigmoidoscopy (procedure) [code = 21699819] [facility] Scheduled Test 2004 00:00:00 Screening for malignant neoplasm of colon (procedure) [code = 832521607] [facility] Scheduled Test 2004 00:00:00 Screening for malignant neoplasm of colon (procedure) [code = 551287870] [facility] Scheduled Test 2004 00:00:00 Zoster Recombinant Vaccine (SHINGRIX) (1 of 2) [code = Zoster Recombinant Vaccine (SHINGRIX) (1 of 2)] [facility] Scheduled Test 1994 00:00:00 Screening for malignant neoplasm of breast (procedure) [code = 179766365] [facility] Scheduled Test 1973 00:00:00 DTaP,Tdap,and Td Vaccines (1 - Tdap) [code = DTaP,Tdap,and Td Vaccines (1 - Tdap)] [facility] Scheduled Test 1972 00:00:00 Diabetic foot examination (regime/therapy) [code = 815194577] [facility] Scheduled Test 1972 00:00:00 Hepatitis C screening (procedure) [code = 929495132] [facility] Scheduled Test 1966 00:00:00 Depression screening (procedure) [code = 252530723] [facility] Scheduled Test 1964 00:00:00 Examination of retina (procedure) [code = 683412715] [facility] Encounters Start Date/Time End Date/Time Encounter Type Admission Type Attending Clinicians Care Facility Care Department Encounter ID Source 2023-08-11 15:36:00 Outpatient [facility] [id number] [facility] 2022-04-09 08:58:01 Outpatient [facility] [id number] [facility] 2021-10-03 09:51:01 Outpatient [facility] [id number] [facility] 2021-10-02 09:49:00 Outpatient Cole, Na STLMLC STLMLC [id number] [facility] 2021-08-22 09:25:04 Outpatient Cole, Na STLMLC STLMLC [id number] [facility] 2021-06-29 10:22:01 Outpatient Cole, Na STLMLC STLMLC [id number] [facility] 2021-05-02 13:44:03 Outpatient Cole, Na STLMLC STLMLC [id number] [facility] 2021-05-02 13:09:22 Outpatient Cole, Na STLMLC STLMLC [id number] [facility] 2021-05-02 13:03:58 Outpatient Cole, Na STLMLC STLMLC [id number] [facility] 2021-05-02 12:54:27 Outpatient Cole, Na STLMLC STLMLC [id number] [facility] 2021-05-02 12:52:19 Outpatient Cole, Na STLMLC STLMLC [id number] [facility] 2021-05-02 12:51:48 Outpatient Cole, Na STLMLC STLMLC [id number] [facility] 2021-05-02 12:49:33 Outpatient Cole, Na STLMLC STLMLC [id number] [facility] 2021-05-02 12:26:04 Outpatient Cole, Na STLMLC STLMLC [id number] [facility] 2021-05-02 12:16:19 Outpatient Cole, Na STLMLC STLMLC [id number] [facility] 2021-05-02 12:08:[address], Kin STLMLC STLMLC [id number] [facility] 2021-05-02 11:52:05 [facility] [id number] [facility] 2021-05-02 11:48:52 [facility] [id number] [facility] 2021-05-02 11:48:17 Outpatient Angeli Walls [facility] [id number] [facility] 2021-05-02 11:43:51 [facility] [id number] [facility] 2021-05-02 11:04:05 Outpatient Angeli Walls [facility] [id number] [facility] 2024-08-13 00:00:00 2024-08-13 17:42:25 [facility] [id number] [facility] 2024-08-09 10:37:05 2024-08-09 10:37:05 Outpatient SFA SFA [id number] Chandrakant Pinon 2024-08-02 10:29:48 2024-08-02 10:29:48 Outpatient SFA SFA [id number] Chandrakant Pinon 2024-07-20 14:07:57 2024-07-20 14:07:57 Outpatient SFA SFA [id number] Chandrakant Pinon 2024-07-12 15:21:19 2024-07-12 15:21:19 Outpatient SFA SFA [id number] Chandrakant Pinon 2024-07-08 00:00:00 2024-07-08 08:15:25 [facility] [id number] [facility] 2024-07-02 10:24:11 2024-07-02 10:24:11 Outpatient SFA SFA [id number] Chandrakant Pinon 2024-06-28 09:50:12 2024-06-28 09:50:12 Outpatient SFA SFA [id number] Chandrakant Pinon 2024-06-14 07:57:12 2024-06-14 07:57:12 Outpatient SFA SFA [id number] Chandrakant Pinon 2024-02-23 09:48:53 2024-02-23 09:48:53 Outpatient SFA SFA [id number] Chandrakant Pinon 2024-01-26 09:41:22 2024-01-26 09:41:22 Outpatient SFA SFA [id number] Chandrakant Pinon 2024-01-22 10:37:58 2024-01-22 10:37:58 Outpatient SFA SFA [id number] Chandrakant Pinon 2023-12-22 08:35:09 2023-12-22 08:35:09 Outpatient SFA SFA [id number] Chandrakant Pinon 2023-11-17 16:08:39 2023-11-17 16:08:39 Outpatient SFA SFA [id number] Chandrakant Pinon 2023-11-06 11:45:16 2023-11-06 11:45:16 Outpatient SFA SFA [id number] Chandrakant Pinon 2023-09-17 14:18:31 2023-09-17 14:18:31 Outpatient SFA SFA [id number] Chandrakant Pinon 2023-08-11 00:00:00 2023-08-11 00:00:00 OFFICE VISIT ESTAB PT LEVEL 3 STLMLC STLMLC [id number] [facility] 2023-08-08 11:25:13 2023-08-08 11:25:13 Outpatient SFA SFA [id number] Chandrakant Pinon 2023-08-04 15:03:14 2023-08-04 15:03:14 Outpatient SFA SFA [id number] Chandrakant Pinon 2023-07-28 11:24:46 2023-07-28 11:24:46 Outpatient SFA SFA [id number] Chandrakant Pinon 2023-06-10 11:37:17 2023-06-10 11:37:17 Outpatient SFA SFA [id number] Chandrakant Pinon 2023-06-03 13:58:18 2023-06-03 13:58:18 Outpatient SFA SFA [id number] Chandrakant Pinon 2023-05-27 11:26:33 2023-05-27 11:26:33 Outpatient SFA SFA [id number] Chandrakant Pinon 2023-04-18 11:15:37 2023-04-18 11:15:37 Outpatient SFA SFA [id number] Chandrakant Pinon 2023-04-16 11:00:51 2023-04-16 11:00:51 Outpatient SFA SFA [id number] Chandrakant Pinon 2023-03-18 11:47:22 2023-03-18 11:47:22 Outpatient SFA SFA [id number] Chandrakant Pinon 2023-03-10 09:04:45 2023-03-10 09:04:45 Outpatient SFA SFA [id number] Chandrakant Pinon 2023-03-07 16:09:13 2023-03-07 16:09:13 Outpatient SFA SFA [id number] Chandrakant Pinon 2023-01-27 00:00:00 2023-01-27 00:00:00 (TEL) [facility] [id number] [facility] 2023-01-22 11:58:35 2023-01-22 11:58:35 Outpatient SFA SFA [id number] Chandrakant Pinon 2023-01-16 00:00:00 2023-01-16 00:00:00 (F/U) Follow Up Visit [facility] [id number] [facility] 2022-12-25 16:08:58 2022-12-25 16:08:58 Outpatient SFA SFA [id number] Chandrakant Pinon 2022-12-13 09:23:15 2022-12-13 09:23:15 Outpatient SFA SFA [id number] Chandrakant Pinon 2022-12-02 10:23:33 2022-12-02 10:23:[address] [facility] [id number] Chandrakant Pinon 2022-10-15 00:00:00 2022-10-15 00:00:00 NON-BILLAB LE VISIT STLMLC STLMLC [id number] [facility] 2022-09-26 10:22:59 2022-09-26 10:22:59 Outpatient SFA SFA 22 Chandrakant Pinon 2022-09-12 14:32:35 2022-09-12 14:32:[address] [facility] 08 Chandrakant Pinon 2022-09-12 00:00:00 2022-09-12 00:00:00 (TEL) STLMLC STLMLC [id number] [facility] 2022-08-26 00:00:00 2022-08-26 00:00:00 (TEL) STLMLC STLMLC [id number] [facility] 2022-08-26 00:00:00 2022-08-26 00:00:00 (TEL) STLMLC STLMLC [id number] [facility] 2022-08-26 00:00:00 2022-08-26 00:00:00 OFFICE VISIT ESTAB PT LEVEL 4 STLMLC STLMLC [id number] [facility] 2022-08-22 00:00:00 2022-08-22 00:00:00 NON-BILLAB LE VISIT STLMLC STLMLC [id number] [facility] 2022-08-01 00:00:00 2022-08-01 00:00:00 NON-BILLAB LE VISIT STLMLC STLMLC [id number] [facility] 2022-07-25 00:00:00 2022-07-25 00:00:00 NON-BILLAB LE VISIT STLMLC STLMLC [id number] [facility] 2022-07-15 00:00:00 2022-07-15 00:00:00 (TEL) STLMLC STLMLC [id number] [facility] 2022-07-11 00:00:00 2022-07-11 00:00:00 OFFICE VISIT ESTAB PT LEVEL 4 STLMLC STLMLC [id number] [facility] 2022-07-10 14:06:42 2022-07-10 14:06:42 Outpatient SFA SFA [id number] Chandrakant Pinon 2022-06-14 16:06:08 2022-06-14 16:06:08 Outpatient SFA SFA [id number] Chandrakant Pinon 2022-06-06 14:40:54 2022-06-06 14:40:54 Outpatient SFA SFA [id number] Chandrakant Pinon 2022-06-05 10:56:32 2022-06-05 10:56:32 Outpatient SFA SFA [id number] Chandrakant Pinon 2022-05-23 11:25:25 2022-05-23 11:25:25 Outpatient SFA SFA [id number] Chandrakant Pinon 2022-05-16 10:23:21 2022-05-16 10:23:21 Outpatient SFA SFA [id number] Chandrakant Pinon 2022-04-30 14:24:21 2022-04-30 14:24:21 Outpatient SFA SFA [id number] Chandrakant Pinon 2022-04-09 00:00:00 2022-04-09 00:00:00 OFFICE VISIT ESTAB PT LEVEL 4 STLMLC STLC [id number] [facility] 2022-04-09 00:00:00 2022-04-09 00:00:00 (TEL) STLMLC STLMLC [id number] [facility] 2022-03-18 00:00:00 2022-03-18 00:00:00 NON-BILLAB LE VISIT STLMLC STLMLC [id number] [facility] 2022-03-14 10:27:13 2022-03-14 10:27:13 Outpatient SFA SFA [id number] Chandrakant Pinon 2022-02-07 17:11:30 2022-02-07 17:11:30 Outpatient SFA SFA [id number] Chandrakant Pinon 2022-01-31 00:00:00 2022-01-31 00:00:00 NON-BILLAB LE VISIT STLMLC STLMLC [id number] [facility] 2022-01-28 00:00:00 2022-01-28 00:00:00 (TEL) STLMLC STLMLC [id number] [facility] 2022-01-24 00:00:00 2022-01-24 00:00:00 (TEL) STLMLC STLMLC [id number] [facility] 2022-01-10 00:00:00 2022-01-10 00:00:00 (TEL) STLMLC STLMLC [id number] [facility] 2022-01-03 00:00:00 2022-01-03 00:00:00 NON-BILLAB LE VISIT STLMLC STLMLC [id number] [facility] 2021-12-17 00:00:00 2021-12-17 00:00:00 OFFICE VISIT ESTAB PT LEVEL 4 STLMLC STLMLC [id number] [facility] 2021-11-08 00:00:00 2021-11-08 00:00:00 (TEL) STLMLC STLMLC [id number] [facility] 2021-10-04 00:00:00 2021-10-04 00:00:00 (TEL) STLMLC STLMLC [id number] [facility] 2021-10-04 00:00:00 2021-10-04 00:00:00 (TEL) STLMLC STLMLC [id number] [facility] 2021-10-04 00:00:00 2021-10-04 00:00:00 (TEL) STLMLC STLMLC [id number] [facility] 2021-10-03 00:00:00 2021-10-03 00:00:00 (TEL) STLMLC STLMLC [id number] [facility] 2021-10-02 00:00:00 2021-10-02 00:00:00 OFFICE VISIT ESTAB PT LEVEL 4 STLMLC STLMLC [id number] [facility] 2021-09-19 00:00:00 2021-09-19 00:00:00 (TEL) STLMLC STLMLC [id number] [facility] 2021-07-11 00:00:00 2021-07-11 00:00:00 (TEL) STLMLC STLMLC [id number] [facility] 2021-07-04 00:00:00 2021-07-04 00:00:00 (TEL) STLMLC STLMLC [id number] [facility] 2021-07-03 00:00:00 2021-07-03 00:00:00 OFFICE VISIT ESTAB PT LEVEL 4 STLMLC STLMLC [id number] [facility] 2021-06-21 00:00:00 2021-06-21 00:00:00 (TEL) STLMLC STLMLC [id number] [facility] 2021-01-24 00:00:00 2021-01-24 00:00:00 (TEL) STLMLC STLMLC [id number] [facility] 2021-01-16 00:00:00 2021-01-16 00:00:00 (TEL) STLMLC STLMLC [id number] [facility] 2020-12-29 00:00:00 2020-12-29 00:00:00 Outpatient STLMLC STLMLC [id number] [facility] 2020-12-06 00:00:00 2020-12-06 00:00:00 Outpatient STLMLC STLMLC [id number] [facility] 2020-11-24 10:15:00 2020-11-24 11:54:00 Emergency Feng Zacarias [facility] [id number] [facility] 2020-11-24 10:15:00 2020-11-24 11:54:00 Emergency X RELL, FENG RELL, FENG [facility] [id number] [facility] 2020-11-21 00:00:00 2020-11-21 00:00:00 Outpatient STLMLC STLMLC [id number] [facility] 2020-11-21 00:00:00 2020-11-21 00:00:00 Outpatient STLMLC STLMLC [id number] [facility] 2020-11-02 00:00:00 2020-11-02 00:00:00 Outpatient STLMLC STLMLC [id number] [facility] 2020-10-31 00:00:00 2020-10-31 00:00:00 Outpatient STLMLC STLMLC [id number] [facility] 2020-09-21 00:00:00 2020-09-21 00:00:00 Outpatient STLMLC STLMLC [id number] [facility] 2020-09-01 00:00:00 2020-09-01 00:00:00 Outpatient STLMLC STLMLC [id number] [facility] 2020-08-25 00:00:00 2020-08-25 00:00:00 Outpatient STLMLC STLMLC [id number] [facility] 2020-08-25 00:00:00 2020-08-25 00:00:00 Outpatient STLMLC STLMLC [id number] [facility] 2020-08-21 00:00:00 2020-08-21 00:00:00 Outpatient STLMLC STLMLC [id number] [facility] 2020-07-26 00:00:00 2020-07-26 00:00:00 Outpatient STLMLC STLMLC [id number] [facility] 2020-07-20 00:00:00 2020-07-20 00:00:00 Outpatient STLMLC STLMLC [id number] [facility] 2020-07-11 00:00:00 2020-07-11 00:00:00 Outpatient STLMLC STLMLC [id number] [facility] 2020-06-08 00:00:00 2020-06-08 00:00:00 Outpatient STLMLC STLMLC [id number] [facility] 2020-04-11 00:00:00 2020-04-11 00:00:00 Outpatient STLMLC STLMLC [id number] [facility] 2020-01-06 00:00:00 2020-01-06 00:00:00 Outpatient STLMLC STLMLC [id number] [facility] 2020-01-04 00:00:00 2020-01-04 00:00:00 Outpatient STLMLC STLMLC [id number] [facility] 2019-12-31 00:00:00 2019-12-31 00:00:00 Outpatient STLMLC STLMLC [id number] [facility] 2019-12-30 00:00:00 2019-12-30 00:00:00 Outpatient STLMLC STLMLC [id number] [facility] 2019-12-21 00:00:00 2019-12-21 00:00:00 Outpatient STLMLC STLMLC [id number] [facility] 2019-12-16 16:48:00 2019-12-16 16:48:00 [facility] [id number] [facility] 2019-12-07 09:01:00 2019-12-07 09:01:00 [facility] [id number] [facility] 2019-09-29 16:06:00 2019-09-29 16:06:00 Outpatient [facility] [id number] [facility] 2019-06-15 13:49:00 2019-06-15 13:49:00 [facility] [id number] [facility] 2019-05-05 11:00:00 2019-05-05 11:00:00 [facility] [id number] [facility] 2019-02-23 11:46:00 2019-02-23 11:46:00 [facility] [id number] [facility] 2018-06-04 11:45:00 2018-06-04 11:45:00 [facility] [id number] [facility] 2017-12-22 11:56:00 2017-12-22 11:56:00 [facility] [id number] [facility] 2017-12-04 09:00:00 2017-12-04 09:00:00 [facility] [id number] [facility] 2017-12-01 11:10:00 2017-12-01 11:10:00 [facility] [id number] [facility] 2017-09-11 14:57:00 2017-09-11 14:57:00 [facility] [id number] [facility] 2017-09-04 14:14:00 2017-09-04 14:14:00 [facility] [id number] [facility] Results Test Description Test Time Test Comments Results Result Co mments Source LIPID [id number] 05:48:49* Test Item Value Reference Range Interpretation Comme nts CHOLESTEROL (test code = 2210) 177 MG/DL <200 TRIGLYCERIDES (test code = 2232) 144 MG/DL <150 HDL CHOLESTEROL (test code = 2220) 50 MG/DL >39 CALC LDL CHOL (test code = 2237) 103 MG/DL <100 H NOTE: CALCULATED LDL IS BASED ON MARIELENA-CASTELLANOS METHOD WHICHINCLUDES ADJUSTABLE TRIGLYCERIDE:VLDL CHOLESTEROL RATIO.THIS FACTOR VARIES BY MEASURED TRIGLYCERIDE AND NON-HDLCHOLESTEROL CONCENTRATIONS WITH INCREASED CALCULATED LDL SEENIN HIGHER TRIGLYCERIDE OR LOWER NON-HDL SPECIMENS. FOR MOREINFORMATION, SEE CLIENT ANNOUNCEMENT AT [email or web address] RATIO LDL/HDL (test code = 2237) 2.06 RATIO <3.22 COMPREHENSIVE METABOLIC [id number] 05:48:49* Test Item Value Reference Range Interpretation Comme nts GLUCOSE (test code = 2216) 106 MG/DL 70-99 H BUN (test code = 2207) 16 MG/DL 8-23 CREATININE (test code = 2213) 0.82 MG/DL 0.60-1.30 eGFR (2020 CKD-EPI) (test co de = 35148) 77 ML/MIN/1.73 >60 CALC BUN/CREAT (test code = 5) 20 RATIO 6-28 SODIUM (test code = 2230) 146 MEQ/L 133-146 POTASSIUM (test code = 2227) 4.3 MEQ/L 3.5-5.4 CHLORIDE (test code = 2215) 104 MEQ/L 95-107 CARBON DIOXIDE (test code = 2206) 29 MEQ/L 19-31 CALCIUM (test code = 2209) 9.3 MG/DL 8.5-10.5 PROTEIN, TOTAL (test code = 2229) 6.9 G/DL 6.1-8.3 ALBUMIN (test code = 2201) 4.5 G/DL 3.5-5.2 CALC GLOBULIN (test code = 2240) 2.4 G/DL 1.9-3.7 CALC A/G RATIO (test code = 2234) 1.9 RATIO 1.0-2.6 BILIRUBIN, TOTAL (test code = 2206) 0.3 MG/DL <=1.2 ALKALINE PHOSPHATASE (test code = 220) 77 U/L 40-142 AST (test code = 2218) 33 U/L 9-40 ALT (test code = 2219) 14 U/L 5-40 HEMOGLOBIN [id number] 04:18:10* Test Item Value Reference Range Interpretation Comme nts HEMOGLOBIN A1c (test code = 12242) 5.9 % 4.2-5.6 H CITIZEN OF [employer] GUIDELINES FOR HGB A1C: PREDIABETES/INCREASED RISK . . . . . . . 5.7-6.4% DIAGNOSIS OF DIABETES . . . . . . . . . >=6.5% WITH CONFIRMATION OR APPROPRIATE SYMPTOMS NOTE: ASSAY MAY BE AFFECTED BY HEMOGLOBINOPATHIES (SICKLE CELL ANEMIA, S-C DISEASE, OTHERS) OR ARTIFICIALLY LOWERED BY DECREASED RED CELL SURVIVAL (HEMOLYTIC ANEMIAS, BLOOD LOSS, ETC.). CONSIDER ALTERNATE TESTING OR LABORATORY CONSULTATION. CULTURE, [id number] 12:05:10SPECIMEN NUMBER: [id number] CULTURE, URINE SPECIMEN NUMBER: [id number] SOURCE: URINE REPORT STATUS: FINAL FINAL REPORT: 11/09/2023 10-100,000 CFU/ML UROGENITAL ANN-MARIE PRESENT NO COMMON PATHOGENS UNLESS OTHERWISE INDICATED, ALL TESTING PERFORMED AT [facility] [address] [place] [address] BIG DATA SOFTWARE ENGINEER: MAR HUNG M.D. CLIA NUMBER [id number] [facility] [place]. [id number] 06:18:45* Test Item Value Reference Range Interpretation Comme nts CHOLESTEROL (test code = 2210) 182 MG/DL <200 TRIGLYCERIDES (test code = 2232) 250 MG/DL <150 H HDL CHOLESTEROL (test code = 2220) 49 MG/DL >39 CALC LDL CHOL (test code = 2237) 97 MG/DL <100 NOTE: CALCULATED LDL IS BASED ON MARIELENA-CASTELLANOS METHOD WHICHINCLUDES ADJUSTABLE TRIGLYCERIDE:VLDL CHOLESTEROL RATIO.THIS FACTOR VARIES BY MEASURED TRIGLYCERIDE AND NON-HDLCHOLESTEROL CONCENTRATIONS WITH INCREASED CALCULATED LDL SEENIN HIGHER TRIGLYCERIDE OR LOWER NON-HDL SPECIMENS. FOR MOREINFORMATION, SEE CLIENT ANNOUNCEMENT AT [email or web address] RISK RATIO LDL/HDL (test code = 2238) 1.98 RATIO <3.22 COMPREHENSIVE METABOLIC [id number] 06:18:45* Test Item Value Reference Range Interpretation Comme nts GLUCOSE (test code = 2217) 134 MG/DL 70-99 H BUN (test code = 2208) 17 MG/DL 8-23 CREATININE (test code = 2214) 0.73 MG/DL 0.60-1.30 eGFR (2020 CKD-EPI) (test code = 99415) 90 ML/MIN/1.73 >60 CALC BUN/CREAT (test code = 2235) 23 RATIO 6-28 SODIUM (test code = 2230) 146 MEQ/L 133-146 POTASSIUM (test code = 8) 4.3 MEQ/L 3.5-5.4 CHLORIDE (test code = 5) 106 MEQ/L 95-107 CARBON DIOXIDE (test code = 2205) 25 MEQ/L 19-31 CALCIUM (test code = 9) 9.0 MG/DL 8.5-10.5 PROTEIN, TOTAL (test code = 2228) 6.3 G/DL 6.1-8.3 ALBUMIN (test code = 2200) 4.4 G/DL 3.5-5.2 CALC GLOBULIN (test code = 0) 1.9 G/DL 1.9-3.7 CALC A/G RATIO (test code = 2233) 2.3 RATIO 1.0-2.6 BILIRUBIN, TOTAL (test code = 2206) 0.2 MG/DL <=1.2 ALKALINE PHOSPHATASE (test code = 2203) 82 U/L 40-142 AST (test code = 2217) 35 U/L 9-40 ALT (test code = 2218) 15 U/L 5-40 UNLESS OTHERWISE INDICATED, ALL TESTING PERFORMED AT [facility] [address] [place] [address] BIG DATA SOFTWARE ENGINEER: MAR HUNG M.D. CLIA NUMBER [id number] [facility] [place]. [id number] HEMOGLOBIN [id number] 02:54:35* Test Item Value Reference Range Interpretation Comme [facility] HEMOGLOBIN A1c (test code = 53081) 6.5 % 4.2-5.6 H CITIZEN OF [employer] [employer] GUIDELINES FOR HGB A1C: PREDIABETES/INCREASED RISK . . . . . . . 5.7-6.4% DIAGNOSIS OF DIABETES . . . . . . . . . >=6.5% WITH CONFIRMATION OR APPROPRIATE SYMPTOMS NOTE: ASSAY MAY BE AFFECTED BY HEMOGLOBINOPATHIES (SICKLE CELL ANEMIA, S-C DISEASE, OTHERS) OR ARTIFICIALLY LOWERED BY DECREASED RED CELL SURVIVAL (HEMOLYTIC ANEMIAS, BLOOD LOSS, ETC.). CONSIDER ALTERNATE TESTING OR LABORATORY CONSULTATION. HEMOGLOBIN [id number] 03:11:41* Test Item Value Reference Range Interpretation Comme nts HEMOGLOBIN A1c (test code = 91088) 6.1 % 4.2-5.6 H CITIZEN OF [employer] [employer] GUIDELINES FOR HGB A1C: PREDIABETES/INCREASED RISK . . . . . . . 5.7-6.4% DIAGNOSIS OF DIABETES . . . . . . . . . >=6.5% WITH CONFIRMATION OR APPROPRIATE SYMPTOMS NOTE: ASSAY MAY BE AFFECTED BY HEMOGLOBINOPATHIES (SICKLE CELL ANEMIA, S-C DISEASE, OTHERS) OR ARTIFICIALLY LOWERED BY DECREASED RED CELL SURVIVAL (HEMOLYTIC ANEMIAS, BLOOD LOSS, ETC.). CONSIDER ALTERNATE TESTING OR LABORATORY CONSULTATION. UNLESS OTHERWISE INDICATED, ALL TESTING PERFORMED AT [facility] [address] [place] [address] BIG DATA SOFTWARE ENGINEER: MAR HUNG M.D. CLIA NUMBER [id number] [facility] [place]. [id number] COMPREHENSIVE METABOLIC [id number] 02:43:08* Test Item Value Reference Range Interpretation Comme nts GLUCOSE (test code = 2217) 168 MG/DL 70-99 H BUN (test code = 2207) 26 MG/DL 8-23 H CREATININE (test code = 2214) 0.84 MG/DL 0.60-1.30 eGFR (2020 CKD-EPI) (test co de = 86116) 76 ML/MIN/1.73 >60 CALC BUN/CREAT (test code = 2235) 31 RATIO 6-28 H SODIUM (test code = 2231) 140 MEQ/L 133-146 POTASSIUM (test code = 2228) 4.0 MEQ/L 3.5-5.4 CHLORIDE (test code = 2215) 101 MEQ/L 95-107 CARBON DIOXIDE (test code = 2206) 26 MEQ/L 19-31 CALCIUM (test code = 2209) 9.3 MG/DL 8.5-10.5 PROTEIN, TOTAL (test code = 2229) 6.4 G/DL 6.1-8.3 ALBUMIN (test code = 2201) 4.3 G/DL 3.5-5.2 CALC GLOBULIN (test code = 2240) 2.1 G/DL 1.9-3.7 CALC A/G RATIO (test code = 2234) 2.0 RATIO 1.0-2.6 BILIRUBIN, TOTAL (test code = 2207) 0.3 MG/DL <=1.2 ALKALINE PHOSPHATASE (test code = 2204) 85 U/L 40-142 AST (test code = 2218) 34 U/L 9-40 ALT (test code = 2219) 20 U/L 5-40 LIPID [id number] 05:24:53* Test Item Value Reference Range Interpretation Comme nts CHOLESTEROL (test code = 2210) 170 MG/DL <200 TRIGLYCERIDES (test code = 2232) 221 MG/DL <150 H HDL CHOLESTEROL (test code = 2220) 49 MG/DL >39 CALC LDL CHOL (test code = 2237) 90 MG/DL <100 NOTE: CALCULATED LDL IS BASED ON MARIELENA-CASTELLANOS METHOD WHICHINCLUDES ADJUSTABLE TRIGLYCERIDE:VLDL CHOLESTEROL RATIO.THIS FACTOR VARIES BY MEASURED TRIGLYCERIDE AND NON-HDLCHOLESTEROL CONCENTRATIONS WITH INCREASED CALCULATED LDL SEENIN HIGHER TRIGLYCERIDE OR LOWER NON-HDL SPECIMENS. FOR MOREINFORMATION, SEE CLIENT ANNOUNCEMENT AT [email or web address]-C RISK RATIO LDL/HDL (test code = 2238) 1.84 RATIO <3.22 COMPREHENSIVE METABOLIC [id number] 05:24:53* Test Item Value Reference Range Interpretation Comme nts GLUCOSE (test code = 2217) 160 MG/DL 70-99 H BUN (test code = 2208) 26 MG/DL 8-23 H CREATININE (test code = 2214) 0.81 MG/DL 0.60-1.30 eGFR (2020 CKD-EPI) (test code = 58157) 79 ML/MIN/1.73 >60 CALC BUN/CREAT (test code = 2235) 32 RATIO 6-28 H SODIUM (test code = 223) 144 MEQ/L 133-146 POTASSIUM (test code = 2228) 4.6 MEQ/L 3.5-5.4 CHLORIDE (test code = 2215) 105 MEQ/L 95-107 CARBON DIOXIDE (test code = 2206) 26 MEQ/L 19-31 CALCIUM (test code = 2209) 9.3 MG/DL 8.5-10.5 PROTEIN, TOTAL (test code = 222) 6.6 G/DL 6.1-8.3 ALBUMIN (test code = 2201) 4.3 G/DL 3.5-5.2 CALC GLOBULIN (test code = 2240) 2.3 G/DL 1.9-3.7 CALC A/G RATIO (test code = 2234) 1.9 RATIO 1.0-2.6 BILIRUBIN, TOTAL (test code = 2207) 0.4 MG/DL See_Comment [Automated me ssage] The system which generated this result transmitted reference range: <=1.2. The reference range was not used to interpret this result as normal/abnormal. ALKALINE PHOSPHATASE (test code = 2204) 94 U/L 40-142 AST (test code = 2218) 29 U/L 9-40 ALT (test code = 2219) 16 U/L 5-40 UNLESS OTHERWISE INDICATED, ALL TESTING PERFORMED AT [facility] [address] [place] [address] BIG DATA SOFTWARE ENGINEER: MAR HUNG M.D. CLIA NUMBER [id number] [facility] [place]. [id number] HEMOGLOBIN [id number] 03:37:27* Test Item Value Reference Range Interpretation Comme nts HEMOGLOBIN A1c (test code = 80277) 7.3 % 4.2-5.6 H CITIZEN OF [employer] [employer] GUIDELINES FOR HGB A1C: PREDIABETES/INCREASED RISK . . . . . . . 5.7-6.4% DIAGNOSIS OF DIABETES . . . . . . . . . >=6.5% WITH CONFIRMATION OR APPROPRIATE SYMPTOMS NOTE: ASSAY MAY BE AFFECTED BY HEMOGLOBINOPATHIES (SICKLE CELL ANEMIA, S-C DISEASE, OTHERS) OR ARTIFICIALLY LOWERED BY DECREASED RED CELL SURVIVAL (HEMOLYTIC ANEMIAS, BLOOD LOSS, ETC.). CONSIDER ALTERNATE TESTING OR LABORATORY CONSULTATION. CBC W/AUTO DIFF WITH [id number] 14:04:31* Test Item Value Reference Range Interpretation Comme nts WBC (test code = 1001) 6.0 K/UL 3.5-11.0 RBC (test code = 1002) 4.22 M/UL 3.80-5.40 HEMOGLOBIN (test code = 1003) 9.9 G/DL 11.5-15.5 L HEMATOCRIT (test code = 1004) 32.0 % 34.0-45.0 L MCV (test code = 1005) 75.8 fL 80.0-99.0 L MCH (test code = 1006) 23.5 PG 25.0-33.0 L MCHC (test code = 1007) 30.9 G/DL 31.0-36.0 L RDW (test code = 1038) 15.0 % 11.5-15.0 NEUTROPHILS (test code = 1008) 67.6 % LYMPHOCYTES (test code = 1010) 19.7 % MONOCYTES (test code = 1011) 9.0 % EOSINOPHILS (test code = 1012) 3.2 % BASOPHILS (test code = 1013) 0.3 % IMMATURE GRANULOCYTES (test code = 1036) 0.2 % NUCLEATED RBCS (test code = 1065) 0.0 /100 WBC'S See_Comment [Automated message] The system which generated this result transmitted reference range: 0.0. The reference range was not used to interpret this result as normal/abnormal. PLATELET COUNT (test code = 1015) 298 K/UL 130-400 ABSOLUTE NEUTROPHILS (test code = 1066) 4.05 K/UL 1.50-7.50 ABSOLUTE LYMPHOCYTES (test code = 1067) 1.18 K/UL 1.00-4.00 ABSOLUTE MONOCYTES (test code = 1068) 0.54 K/UL 0.20-1.00 ABSOLUTE EOSINOPHILS (test code = 1040) 0.19 K/UL 0.00-0.50 ABSOLUTE BASOPHILS (test code = 1069) 0.02 K/UL 0.00-0.20 ABS IMMATURE GRANULOCYTES (test code = 1020) 0.01 K/UL 0.00-0.10 ABS NUCLEATED RBCS (test code = 02159) 0.00 K/UL 0.00-0.11 UNLESS OTHER [place] INDICATED, ALL TESTING PERFORMED AT [facility] [address] [place] [address] BIG DATA SOFTWARE ENGINEER: MAR HUNG M.D. IA NUMBER [id number] [facility] [place]. [id number] LIPID [id number] 04:34:23* Test Item Value Reference Range Interpretation Comme nts CHOLESTEROL (test code = 2210) 166 MG/DL <200 TRIGLYCERIDES (test code = 2232) 352 MG/DL <150 H HDL CHOLESTEROL (test code = 2220) 42 MG/DL >39 CALC LDL CHOL (test code = 2237) 82 MG/DL <100 NOTE: CALCULATED LDL IS BASED ON MARIELENA-CASTELLANOS METHOD WHICHINCLUDES ADJUSTABLE TRIGLYCERIDE:VLDL CHOLESTEROL RATIO.THIS FACTOR VARIES BY MEASURED TRIGLYCERIDE AND NON-HDLCHOLESTEROL CONCENTRATIONS WITH INCREASED CALCULATED LDL SEENIN HIGHER TRIGLYCERIDE OR LOWER NON-HDL SPECIMENS. FOR MOREINFORMATION, SEE CLIENT ANNOUNCEMENT AT [email or web address] /CalcLDL-C RISK RATIO LDL/HDL (test code = 2237) 1.95 RATIO <3.22 COMPREHENSIVE METABOLIC [id number] 04:34:23* Test Item Value Reference Range Interpretation Comme nts GLUCOSE (test code = 2216) 60 MG/DL 70-99 L BUN (test code = 2207) 17 MG/DL 8-23 CREATININE (test code = 2213) 1.00 MG/DL 0.60-1.30 eGFR (2020 CKD-EPI) (test code = ) 62 ML/MIN/1.73 >60 CALC BUN/CREAT (test code = 2234) 17 RATIO 6-28 SODIUM (test code = 2230) 145 MEQ/L 133-146 POTASSIUM (test code = 2227) 4.0 MEQ/L 3.5-5.4 CHLORIDE (test code = 2214) 105 MEQ/L 95-107 CARBON DIOXIDE (test code = 2205) 30 MEQ/L 19-31 CALCIUM (test code = 2208) 9.1 MG/DL 8.5-10.5 PROTEIN, TOTAL (test code = 2228) 7.0 G/DL 6.1-8.3 ALBUMIN (test code = 2200) 4.4 G/DL 3.5-5.2 CALC GLOBULIN (test code = 0) 2.6 G/DL 1.9-3.7 CALC A/G RATIO (test code = 2233) 1.7 RATIO 1.0-2.6 BILIRUBIN, TOTAL (test code = 2206) 0.2 MG/DL See_Comment [Automated me ssage] The system which generated this result transmitted reference range: <=1.2. The reference range was not used to interpret this result as normal/abnormal. ALKALINE PHOSPHATASE (test code = 2203) 117 U/L 40-142 AST (test code = 2217) 36 U/L 9-40 ALT (test code = 2218) 24 U/L 5-40 HEMOGLOBIN [id number] 03:08:58* Test Item Value Reference Range Interpretation Comme nts HEMOGLOBIN A1c (test code = 26299) 6.1 % 4.2-5.6 H CITIZEN OF [employer] [employer] GUIDELINES FOR HGB A1C: PREDIABETES/INCREASED RISK . . . . . . . 5.7-6.4% DIAGNOSIS OF DIABETES . . . . . . . . . >=6.5% WITH CONFIRMATION OR APPROPRIATE SYMPTOMS NOTE: ASSAY MAY BE AFFECTED BY HEMOGLOBINOPATHIES (SICKLE CELL ANEMIA, S-C DISEASE, OTHERS) OR ARTIFICIALLY LOWERED BY DECREASED RED CELL SURVIVAL (HEMOLYTIC ANEMIAS, BLOOD LOSS, ETC.). CONSIDER ALTERNATE TESTING OR LABORATORY CONSULTATION. TSH, THIRD [id number] 05:01:45* Test Item Value Reference Range Interpretation Comme nts TSH, THIRD GENERATION (test code = 2821) 1.990 UIU/ML 0.400-4.100 LIPID [id number] 03:36:32* Test Item Value Reference Range Interpretation Comme nts CHOLESTEROL (test code = 2210) 144 MG/DL <200 TRIGLYCERIDES (test code = 2232) 199 MG/DL <150 H HDL CHOLESTEROL (test code = 2220) 40 MG/DL >39 CALC LDL CHOL (test code = 2237) 74 MG/DL <100 NOTE: CALCULATED LDL IS BASED ON MARIELENA-CASTELLANOS METHOD WHICHINCLUDES ADJUSTABLE TRIGLYCERIDE:VLDL CHOLESTEROL RATIO.THIS FACTOR VARIES BY MEASURED TRIGLYCERIDE AND NON-HDLCHOLESTEROL CONCENTRATIONS WITH INCREASED CALCULATED LDL SEENIN HIGHER TRIGLYCERIDE OR LOWER NON-HDL SPECIMENS. FOR MOREINFORMATION, SEE CLIENT ANNOUNCEMENT AT [email or web address] /CalcLDL-C RISK RATIO LDL/HDL (test code = 2238) 1.85 RATIO <3.22 COMPREHENSIVE METABOLIC [id number] 03:36:32* Test Item Value Reference Range Interpretation Comme nts GLUCOSE (test code = 2217) 117 MG/DL 70-99 H BUN (test code = 2207) 14 MG/DL 8-23 CREATININE (test code = 2214) 0.66 MG/DL 0.60-1.30 eGFR (2020 CKD-EPI) (test code = 60051) 96 ML/MIN/1.73 >60 CALC BUN/CREAT (test code = 2235) 21 RATIO 6-28 SODIUM (test code = 223) 142 MEQ/L 133-146 POTASSIUM (test code = 2228) 4.0 MEQ/L 3.5-5.4 CHLORIDE (test code = 2215) 106 MEQ/L 95-107 CARBON DIOXIDE (test code = 6) 25 MEQ/L 19-31 CALCIUM (test code = 2209) 9.3 MG/DL 8.5-10.5 PROTEIN, TOTAL (test code = 2228) 6.6 G/DL 6.1-8.3 ALBUMIN (test code = 2200) 4.6 G/DL 3.5-5.2 CALC GLOBULIN (test code = 2239) 2.0 G/DL 1.9-3.7 CALC A/G RATIO (test code = 2233) 2.3 RATIO 1.0-2.6 BILIRUBIN, TOTAL (test code = 2206) 0.4 MG/DL See_Comment [Automated me ssage] The system which generated this result transmitted reference range: <=1.2. The reference range was not used to interpret this result as normal/abnormal. ALKALINE PHOSPHATASE (test code = 2203) 89 U/L 40-142 AST (test code = 2217) 35 U/L 9-40 ALT (test code = 2218) 14 U/L 5-40 HEMOGLOBIN [id number] 03:35:08* Test Item Value Reference Range Interpretation Comme nts HEMOGLOBIN A1c (test code = 25401) 6.0 % 4.2-5.6 H CITIZEN OF [employer] [employer] GUIDELINES FOR HGB A1C: PREDIABETES/INCREASED RISK . . . . . . . 5.7-6.4% DIAGNOSIS OF DIABETES . . . . . . . . . >=6.5% WITH CONFIRMATION OR APPROPRIATE SYMPTOMS NOTE: ASSAY MAY BE AFFECTED BY HEMOGLOBINOPATHIES (SICKLE CELL ANEMIA, S-C DISEASE, OTHERS) OR ARTIFICIALLY LOWERED BY DECREASED RED CELL SURVIVAL (HEMOLYTIC ANEMIAS, BLOOD LOSS, ETC.). CONSIDER ALTERNATE TESTING OR LABORATORY CONSULTATION. CBC W/AUTO DIFF WITH [id number] 02:26:11* Test Item Value Reference Range Interpretation Comme nts WBC (test code = 1001) 4.9 K/UL 3.5-11.0 RBC (test code = 1002) 4.21 M/UL 3.80-5.40 HEMOGLOBIN (test code = 1003) 10.2 G/DL 11.5-15.5 L HEMATOCRIT (test code = 1004) 31.9 % 34.0-45.0 L MCV (test code = 1005) 75.8 fL 80.0-99.0 L MCH (test code = 1006) 24.2 PG 25.0-33.0 L MCHC (test code = 1007) 32.0 G/DL 31.0-36.0 RDW (test code = 1038) 15.3 % 11.5-15.0 H NEUTROPHILS (test code = 1008) 67.2 % LYMPHOCYTES (test code = 1010) 21.2 % MONOCYTES (test code = 1011) 7.1 % EOSINOPHILS (test code = 1012) 3.5 % BASOPHILS (test code = 1013) 0.8 % IMMATURE GRANULOCYTES (test code = 1036) 0.2 % NUCLEATED RBCS (test code = 1065) 0.0 /100 WBC'S See_Comment [Automated message] The system which generated this result transmitted reference range: 0.0. The reference range was not used to interpret this result as normal/abnormal. PLATELET COUNT (test code = 1015) 241 K/UL 130-400 ABSOLUTE NEUTROPHILS (test code = 1066) 3.29 K/UL 1.50-7.50 ABSOLUTE LYMPHOCYTES (test code = 1067) 1.04 K/UL 1.00-4.00 ABSOLUTE MONOCYTES (test code = 1068) 0.35 K/UL 0.20-1.00 ABSOLUTE EOSINOPHILS (test code = 1040) 0.17 K/UL 0.00-0.50 ABSOLUTE BASOPHILS (test code = 1069) 0.04 K/UL 0.00-0.20 ABS IMMATURE GRANULOCYTES (test code = 1020) 0.01 K/UL 0.00-0.10 ABS NUCLEATED RBCS (test code = 81373) 0.00 K/UL 0.00-0.11 [facility] has important pathology staff changes effective 06/05/2022. New pathology staff will provide uninterrupted, excellent patient care and clinical consultation. See URL: [email or web address]. UNLESS OTHERWISE INDICATED, ALL TESTING PERFORMED AT [facility] [address] [place] [address] BIG DATA SOFTWARE ENGINEER: ТАТЬЯНА SAINI M.D. CLIA NUMBER [id number] [facility] [place]. [id number] COMPREHENSIVE METABOLIC [id number] 05:14:21* Test Item Value Reference Range Interpretation Comme nts GLUCOSE (test code = 2217) 126 MG/DL 70-99 H BUN (test code = 2208) 15 MG/DL 8-23 CREATININE (test code = 2213) 0.72 MG/DL 0.60-1.30 eGFR (2020 CKD-EPI) (test code = ) 92 ML/MIN/1.73 >60 CALC BUN/CREAT (test code = 2234) 21 RATIO 6-28 SODIUM (test code = 2230) 143 MEQ/L 133-146 POTASSIUM (test code = 2227) 3.9 MEQ/L 3.5-5.4 CHLORIDE (test code = 2214) 103 MEQ/L 95-107 CARBON DIOXIDE (test code = 2205) 29 MEQ/L 19-31 CALCIUM (test code = 2208) 9.3 MG/DL 8.5-10.5 PROTEIN, TOTAL (test code = 2228) 7.0 G/DL 6.1-8.3 ALBUMIN (test code = 2200) 4.6 G/DL 3.5-5.2 CALC GLOBULIN (test code = 2239) 2.4 G/DL 1.9-3.7 CALC A/G RATIO (test code = 2233) 1.9 RATIO 1.0-2.6 BILIRUBIN, TOTAL (test code = 2206) 0.5 MG/DL See_Comment [Automated me ssage] The system which generated this result transmitted reference range: <=1.2. The reference range was not used to interpret this result as normal/abnormal. ALKALINE PHOSPHATASE (test code = 2203) 90 U/L 40-142 AST (test code = 2217) 36 U/L 9-40 ALT (test code = 2218) 18 U/L 5-40 LIPID [id number] 05:14:21* Test Item Value Reference Range Interpretation Comme nts CHOLESTEROL (test code = 2210) 146 MG/DL <200 TRIGLYCERIDES (test code = 223) 221 MG/DL <150 H HDL CHOLESTEROL (test code = 2220) 39 MG/DL >39 L CALC LDL CHOL (test code = 2236) 76 MG/DL <100 NOTE: CALCULATED LDL IS BASED ON MARIELENA-CASTELLANOS METHOD WHICHINCLUDES ADJUSTABLE TRIGLYCERIDE:VLDL CHOLESTEROL RATIO.THIS FACTOR VARIES BY MEASURED TRIGLYCERIDE AND NON-HDLCHOLESTEROL CONCENTRATIONS WITH INCREASED CALCULATED LDL SEENIN HIGHER TRIGLYCERIDE OR LOWER NON-HDL SPECIMENS. FOR MOREINFORMATION, SEE CLIENT ANNOUNCEMENT AT [email or web address] /CalcLDL-C RISK RATIO LDL/HDL (test code = 2238) 1.95 RATIO <3.22 UNLESS OTHERW ISE INDICATED, ALL [facility]MED [facility] [address] [place] [address] BIG DATA SOFTWARE ENGINEER: ТАТЬЯНА SAINI M.D. CLIA NUMBER [id number] [facility] [place]. [id number] HEMOGLOBIN [id number] 04:14:00* Test Item Value Reference Range Interpretation Comme nts HEMOGLOBIN A1c (test code = 48882) 5.7 % 4.2-5.6 H CBC W/AUTO DIFF WITH [id number] 03:18:59* Test Item Value Reference Range Interpretation Comme nts WBC (test code = 1001) 4.6 K/UL 3.5-11.0 RBC (test code = 1002) 4.09 M/UL 3.80-5.40 HEMOGLOBIN (test code = 1003) 11.7 G/DL 11.5-15.5 HEMATOCRIT (test code = 1004) 34.4 % 34.0-45.0 MCV (test code = 1005) 84.1 fL 80.0-99.0 MCH (test code = 1006) 28.6 PG 25.0-33.0 MCHC (test code = 1007) 34.0 G/DL 31.0-36.0 RDW (test code = 1038) 13.6 % 11.5-15.0 NEUTROPHILS (test code = 1008) 59.4 % LYMPHOCYTES (test code = 1010) 26.3 % MONOCYTES (test code = 1011) 8.9 % EOSINOPHILS (test code = 1012) 4.1 % BASOPHILS (test code = 1013) 0.9 % IMMATURE GRANULOCYTES (test code = 1036) 0.4 % NUCLEATED RBCS (test code = 1065) 0.0 /100 WBC'S See_Comment [Automated [employer] ge] The system which generated this result transmitted reference range: 0.0. The reference range was not used to interpret this result as normal/abnormal. PLATELET COUNT (test code = 1015) 238 K/UL 130-400 ABSOLUTE NEUTROPHILS (test code = 1066) 2.73 K/UL 1.50-7.50 ABSOLUTE LYMPHOCYTES (test code = 1067) 1.21 K/UL 1.00-4.00 ABSOLUTE MONOCYTES (test code = 1068) 0.41 K/UL 0.20-1.00 ABSOLUTE EOSINOPHILS (test code = 1040) 0.19 K/UL 0.00-0.50 ABSOLUTE BASOPHILS (test code = 1069) 0.04 K/UL 0.00-0.20 ABS IMMATURE GRANULOCYTES (test code = 1020) 0.02 K/UL 0.00-0.10 ABS NUCLEATED RBCS (test code = 10846) 0.00 K/UL 0.00-0.11 CULTURE, [id number] 08:47:35SPECIMEN NUMBER: [id number] CULTURE, URINE SPECIMEN NUMBER: [id number] SPECIMEN COMMENT: URINE SOURCE: URINE REPORT STATUS: FINAL FINAL REPORT: 08/04/2021 50-100,000 CFU/ML UROGENITAL ANN-MARIE PRESENT NO C OMMON PATHOGENS UNLESS OTHERWISE INDICATED, ALL TESTING PERFORMED [employer] [facility] [address] [place] [address] BIG DATA SOFTWARE ENGINEER: ТАТЬЯНА SAINI M.D. CLIA NUMBER [id number] [place]. [id number] LIPID [id number] 06:36:23* Test Item Value Reference Range Interpretation Comme nts CHOLESTEROL (test code = 2210) 150 MG/DL <200 TRIGLYCERIDES (test code = 2232) 173 MG/DL <150 H HDL CHOLESTEROL (test code = 2220) 47 MG/DL >39 CALC LDL CHOL (test code = 2237) 76 MG/DL <100 NOTE: CALCULATED LDL IS BASED ON MARIELENA-CASTELLANOS METHOD WHICHINCLUDES ADJUSTABLE TRIGLYCERIDE:VLDL CHOLESTEROL RATIO.THIS FACTOR VARIES BY MEASURED TRIGLYCERIDE AND NON-HDLCHOLESTEROL CONCENTRATIONS WITH INCREASED CALCULATED LDL SEENIN HIGHER TRIGLYCERIDE OR LOWER NON-HDL SPECIMENS. FOR MOREINFORMATION, SEE CLIENT ANNOUNCEMENT AT [email or web address] [email or web address] RATIO LDL/HDL (test code = 2238) 1.62 RATIO <3.22 UNLESS OTHERW ISE INDICATED, ALL TESTING PERFORMED [employer] PATHOLOGY [facility] [address] [place] [address] BIG DATA SOFTWARE ENGINEER: ТАТЬЯНА SAINI M.D. CLIA NUMBER [id number] [place]. [id number] SCR MAMM BILATERAL CECILIA CAD [id number] 09:22:59 Name: Carmenza : 1955 Sex: F - SCR MAMM BILATERAL CECILIA CAD DIGITALBILATERAL DIGITAL SCREENING MAMMOGRAM 3D/2D WITH CAD: 06/29/2021LINICAL: Asymptomatic. Digital breast tomosynthesis was performed in addition to routine CC and MLO views. Current mammographic images wereevaluated by [employer] CAD (computer-aided detection) software. Comparison is made to exam dated 06/28/2013 mammogram - [facility]. The tissue of both breasts is heterogeneously dense. This may lower the sensitivity of mammography. There are benign appearing vascular calci fications and calcifications in both breasts. There also [...] annual screening mammography in one year. Meseret oro/penrad:07/16/2021 09:22:59 Automatic Transmission Mechanic: Sonia Parson MM, [facility] sent: BIRADS 1-2 Normal Mammogram BI-RADS: 2 Benign OCCULT BLD,FECAL,IMMUNOASSAY [id number] 10:00:34* Test Item Value Reference Range Interpretation Comme nts OCCULT BLD, FECAL (test code = 72942) NEGATIVE NEGATIVE UNLESS OTHER SALDAÑA INDICATED, ALL TESTING PERFORMED [facility] [address] [place] [id number] BIG DATA SOFTWARE ENGINEER: ТАТЬЯНА SAINI M.D. CLIA NUMBER [id number] [place]. [id number] HEPATITIS PANEL, [id number] 08:49:41* Test Item Value Reference Range Interpretation Comme nts HEPATITIS A IgM (test code = 34874) NON-REACTIVE NON-REACTIVE HEPATITIS B CORE IgM (test code = 4644) NON-REACTIVE NON-REACTIVE HEPATITIS B SURF AG (test code = 2739) NON-REACTIVE NON-REACTIVE HEPATITIS C ANTIBODY (test code = 4675) NON-REACTIVE NON-REACTIVE INTERPRETATION HEPATITIS A: (test code = 2552) (NOTE) Hepatitis A serology shows no evidence of acute hepatitis A. INTERPRETATION HEPATITIS B: (test code = 53665) (NOTE) Hepatitis B serology shows no evidence of acute hepatitis B andno indication of exposure to hepatitis B virus in the previous juan josé eight months. INTERPRETATION HEPATITIS C: (test code = 31587) (NOTE) Hepatitis C serology shows no evidence of exposure to hepatitisC virus at this time. It can take up to 12 months after exposure tothe hepatitis C virus for antibodies to become detectable in the blood in certain patients. HIV 1/2 4TH GEN, RFLX [id number] 08:49:41* Test Item Value Reference Range Interpretation Comme nts HIV 1/2 4TH GEN, RFLX CONF (test code = 3514) NON-REACTIVE NON-REACTIVE UNLESS OTHERWISE INDICATED, ALL TESTING PERFORMED [facility] [address] [place] [address] BIG DATA SOFTWARE ENGINEER: Hannah CHAVARRIAIA NUMBER [id number] [facility] [place]. [id number] COMPREHENSIVE METABOLIC [id number] 07:32:03* Test Item Value Reference Range Interpretation Comme nts GLUCOSE (test code = 2217) 105 MG/DL 70-99 H BUN (test code = 2208) 19 MG/DL 8-23 CREATININE (test code = 2214) 0.68 MG/DL 0.60-1.30 eGFR (2020 CKD-EPI) (test code = 14119) 96 ML/MIN/1.73 >60 CALC BUN/CREAT (test code = 2235) 28 RATIO 6-28 SODIUM (test code = 2231) 145 MEQ/L 133-146 POTASSIUM (test code = 2228) 4.1 MEQ/L 3.5-5.4 CHLORIDE (test code = 2215) 103 MEQ/L 95-107 CARBON DIOXIDE (test code = 6) 24 MEQ/L 19-31 CALCIUM (test code = 2208) 9.1 MG/DL 8.5-10.5 PROTEIN, TOTAL (test code = 2228) 6.9 G/DL 6.1-8.3 ALBUMIN (test code = 1) 4.4 G/DL 3.5-5.2 CALC GLOBULIN (test code = 0) 2.5 G/DL 1.9-3.7 CALC A/G RATIO (test code = 2233) 1.8 RATIO 1.0-2.6 BILIRUBIN, TOTAL (test code = 2206) 0.6 MG/DL See_Comment [Automated me ssage] The system which generated this result transmitted reference range: <=1.2. The reference range was not used to interpret this result as normal/abnormal. ALKALINE PHOSPHATASE (test code = 2203) 76 U/L 40-142 AST (test code = 2217) 38 U/L 9-40 ALT (test code = 2218) 20 U/L 5-40 LIPID [id number] 07:32:03* Test Item Value Reference Range Interpretation Comme nts CHOLESTEROL (test code = 2210) 157 MG/DL <200 TRIGLYCERIDES (test code = 2) 174 MG/DL <150 H HDL CHOLESTEROL (test code = 0) 43 MG/DL >39 CALC LDL CHOL (test code = 2236) 87 MG/DL <100 NOTE: CALCULATED LDL IS BASED ON MARIELENA-CASTELLANOS METHOD WHICHINCLUDES ADJUSTABLE TRIGLYCERIDE:VLDL CHOLESTEROL RATIO.THIS FACTOR VARIES BY MEASURED TRIGLYCERIDE AND NON-HDLCHOLESTEROL CONCENTRATIONS WITH INCREASED CALCULATED LDL SEENIN HIGHER TRIGLYCERIDE OR LOWER NON-HDL SPECIMENS. FOR MOREINFORMATION, SEE CLIENT ANNOUNCEMENT AT [email or web address] RISK RATIO LDL/HDL (test code = 2238) 2.02 RATIO <3.22 HEMOGLOBIN [id number] 04:44:57* Test Item Value Reference Range Interpretation Comme nts HEMOGLOBIN A1c (test code = 83701) 5.9 % 4.2-5.6 H CBC W/AUTO DIFF WITH [id number] 04:12:14* Test Item Value Reference Range Interpretation Comme nts WBC (test code = 1001) 4.7 K/UL 3.5-11.0 RBC (test code = 1002) 4.29 M/UL 3.80-5.40 HEMOGLOBIN (test code = 1003) 12.0 G/DL 11.5-15.5 HEMATOCRIT (test code = 1004) 34.5 % 34.0-45.0 MCV (test code = 1005) 80.4 fL 80.0-99.0 MCH (test code = 1006) 28.0 PG 25.0-33.0 MCHC (test code = 1007) 34.8 G/DL 31.0-36.0 RDW (test code = 1038) 14.0 % 11.5-15.0 NEUTROPHILS (test code = 1008) 61.5 % LYMPHOCYTES (test code = 1010) 26.6 % MONOCYTES (test code = 1011) 8.0 % EOSINOPHILS (test code = 1012) 2.7 % BASOPHILS (test code = 1013) 0.8 % IMMATURE GRANULOCYTES (test code = 1036) 0.4 % NUCLEATED RBCS (test code = 1065) 0.0 /100 WBC'S See_Comment [Automated messa ge] The system which generated this result transmitted reference range: 0.0. The reference range was not used to interpret this result as normal/abnormal. PLATELET COUNT (test code = 1015) 245 K/UL 130-400 ABSOLUTE NEUTROPHILS (test code = 1066) 2.90 K/UL 1.50-7.50 ABSOLUTE LYMPHOCYTES (test code = 1067) 1.26 K/UL 1.00-4.00 ABSOLUTE MONOCYTES (test code = 1068) 0.38 K/UL 0.20-1.00 ABSOLUTE EOSINOPHILS (test code = 1040) 0.13 K/UL 0.00-0.50 ABSOLUTE BASOPHILS (test code = 1069) 0.04 K/UL 0.00-0.20 ABS IMMATURE GRANULOCYTES (test code = 1020) 0.02 K/UL 0.00-0.10 ABS NUCLEATED RBCS (test code = 35172) 0.00 K/UL 0.00-0.11 XR ELBOW 3+ VW [id number] 16:21:211. Negative radiographs of the right elbow. RL: 2121 ORDERING PHYSICIAN: FENG ZACARIAS CLINICAL HISTORY: fall TECHNIQUE: 3 ?views of the right elbow performed. COMPARISON: none FINDINGS: No acute fracture or dislocation is identified.No evidence of elevated fatpad to suggest joint space effusion at this time. No prominent soft tissueswelling or retained radiopaque foreign bodies are identified. No worrisomelytic/blastic osseous lesions are seen. [facility], Radiant Results Inft User - 11/24/2020 11:22 AM CDT ORDERING PHYSICIAN: FENG ZACARIAS CLINICAL HISTORY: fall TECHNIQUE: 3 views of the right elbow performed.COMPARISON: noneFINDINGS:No acute fracture or dislocation is identified. No evidence of elevated fatpad to suggest joint space effusion at this time. No prominent soft tissueswelling or retained radiopaque foreign bodies are identified. No worrisomelytic/blastic osseous lesions are seen.IMPRESSION1. Negative radiographs of the right elbow.RL: 2121 [facility] [id number] 14:45:00* Test Item Value Reference Range Interpretation Comme nts UR MICROALBUMIN QUANT (test code = MICALB) 89.5 mg/dL 0.0-2.3 H P AND FAX TO DR WALLS [phone] 10:53:00* Test Item Value Reference Range Interpretation Comme nts GLYCOSYLATED HEMOGLOBIN (HA1 C) (test code = GLYHGB) 5.8 % 4.5-6.2 N ESTIMATED AVERAGE GLUCOSE (t est code = EAG) 120 MG/DL <126 P AND FAX TO DR WALLS [id number] 10:37:00* Test Item Value Reference Range Interpretation Comme nts SODIUM (test code = NA) 144 mmol/L 136-145 N POTASSIUM (test code = K) 3.5 mmol/L 3.5-5.1 N CHLORIDE (test code = CL) 107 mmol/L 98-107 N CARBON DIOXIDE (test code = CO2) 30 mmol/L 21-32 N GLUCOSE (test code = GLU) 115 mg/dL 70-100 H BLOOD UREA NITROGEN (test code = BUN) 14 mg/dL 7-18 N GLOMERULAR FILTRATION RATE (test code = GFR) > 60.00 >=60 Reporting units: mL/min/1.73m\S\2 (Modified MDRD formula)REFERENCE RANGE: > or = 60 ml/min/1.73M2IF PATIENT IS -CITIZEN OF [place], MULTIPLY REPORTED RESULT BY1.21. CREATININE (test code = CREAT) 0.69 mg/dl 0.55-1.02 N TOTAL PROTEIN (test code = PROT) 7.1 g/dl 6.4-8.2 N ALBUMIN (test code = ALB) 3.7 g/dl 3.4-5.0 N CALCIUM (test code = CA) 8.2 mg/dl 8.5-10.1 L PHOSPHOROUS (test code = PHOS) 3.6 mg/dl 2.6-4.7 N URIC ACID (test code = URIC) 4.3 mg/dL 2.6-6.0 N TRIGLYCERIDES (test code = TRIG) 144 mg/dL <150 CHOLESTEROL (test code = CHOL) 134 mg/dL < 200 BILIRUBIN TOTAL (test code = BILT) 0.5 mg/dL 0.2-1.0 N SGOT/AST (test code = AST) 28 U/L 15-37 N SGPT/ALT (test code = ALT) 26 U/L 12-78 N GAMMA GLUTAMYL TRANSPEPTIDASE (test code = GGT) 16 U/L 5-55 N ALKALINE PHOSPHATASE TOTAL (test code = ALKP) 79 U/L 45-117 N LACTIC DEHYDROGENASE(LDH) (test code = LDH) 162 U/L 84-246 N HDL CHOLESTEROL (test code = HDL) 46 mg/dL 40-59 N NON-HDL CHOLESTEROL (test code = NHDL) 88 mg/dl <130 LIPOPROTEIN LDL KAYE (test code = LDLC) 59 mg/dl <100 LDL/HDL (test code = LDL/HDL) 1.3 Ratio LDL/HDL RATIO [facility] 3.22 Average 5.03 Twice average 6.14 Three times average P AND FAX TO DR WALLS [phone] 10:37:00* Test Item Value Reference Range Interpretation Comme nts SERUM IRON (test code = IRON) 49 ug/dl 50-170 L P AND FAX TO DR WALLS [phone] STIMULATING [id number] 10:37:00* Test Item Value Reference Range Interpretation Comme nts THYROID STIMULATING HORMONE (test code = TSH) 2.796 0.358-3.74 N Res ults of this assay method may be falsely depressed orelevated if patient is taking high doses of Biotin P AND FAX TO DR WALLS [phone] W/AUTO [id number] 09:36:00* Test Item Value Reference Range Interpretation Comme nts WHITE BLOOD CELL (test code = WBC) 4.7 X10(3) 4.5-11.0 N RED BLOOD CELL (test code = RBC) 4.36 X10(6) 4.2-5.4 N HEMOGLOBIN (test code = HGB) 11.9 g/dL 12.5-16.0 L HEMATOCRIT (test code = HCT) 35.4 % 37.0-47.0 L MEAN CELL VOLUME (test code = MCV) 81.2 fL 78-100 N MEAN CELL HGB (test code = MCH) 27.3 pg 26.0-34.0 N MEAN CELL HGB CONCETRATION (test code = MCHC) 33.6 g/dl 30.0-37.0 N RED CELL DISTRIBUTION WIDTH (test code = RDW) 14.1 % 11.5-14.5 N PLATELET COUNT (test code = PLT) 229 X10(3) 150-350 N MEAN PLATELET VOLUME (test c ode = MPV) 10.5 fl 8.7-11.4 N NEUTROPHIL % (test code = NT%) 60.1 % 36.0-66.0 N IMMATURE GRANULOCYTE % (test code = IG%) 0.2 % 0.0-2.0 N LYMPHOCYTE % (test code = LY%) 27.0 % 16-50 N MONOCYTE % (test code = MO%) 9.1 % 0.0-13.0 N EOSINOPHIL % (test code = EO%) 3.0 % 0.0-4.5 N BASOPHIL % (test code = BA%) 0.6 % 0.0-1.5 N NEUTROPHIL # (test code = NT#) 2.8 X10(3) 1.7-7.7 N IMMATURE GRANULOCYTE # (test code = IG#) 0.01 X10(3)uL 0.00-0.03 N LYMPHOCYTE # (test code = LY#) 1.3 X10(3) 1.0-4.8 N MONOCYTE # (test code = MO#) 0.4 X10(3) 0.0-0.89 N EOSINOPHIL # (test code = EO#) 0.1 X10(3) 0.0-0.6 N BASOPHIL # (test code = BA#) 0.0 X10(3) 0.0-0.2 N P AND FAX TO DR WALLS [phone] Lumbar Spine Wo ConMRI Lumbar Spine Wo ConLumbar Spine 3 ViewsLumbar Spine 3 Views
--- NOTE | 2024-08-17 20:12 | RAD REPORT ---
EXAMINATION: Head C Spine Mpr Wo Con CLINICAL INDICATION: Female, 68 years old. PAIN TECHNIQUE: Axial CT images from the skull base to the vertex without intravenous contrast. Axial CT i mages through the cervical spine were obtained without intravenous contrast. Sagittal and coronal reformatted images were created from the data set. Coronal and sagittal reformatted images were creat ed from the data set. One or more of the following dose reduction techniques were used: Automated exposure control, adjustment of the mA and/or kV according to patient size, and/or iterative reconstr uction. Unless otherwise specified, incidental findings do not require dedicated imaging follow-up. [id number]. COMPARISON: Brain MRI 06/25/2023 FINDINGS: Head: INTRACRANIAL: No acute intracranial hemorrhage. No hydrocephalus. No mass effect or midline shift. Mo derate chronic small vessel ischemic changes.Mild cerebral atrophy. Remote bilateral cerebellar and left periventricular infarct. VASCULATURE: No visualized abnormalities in the arteries or dural venous sinuses. SCALP/SKULL: No calvarial fracture identified. No acute soft tissue abnormality. SINUSES: The visualized paranasal sinuses are mostly clear. No significant mastoid fluid. Cervical spine: ALIGNMENT: The cervical spine has normal alignment without scoliosis or spondylolisthesis. BONE: Vertebral body heights are maintained. No aggressive osseous lesions. DEGENERATIVE: Multilevel cervical spondylosis with evidence of bilateral neural foraminal narrowing. No high grade central spinal stenosis. Neural foraminal narrowing is moderate to severe on the left at C4-5 and C5-6 and on the right at C2-3, C3-4, C4-5. SOFT TISSUE: 14 mm low-density right thyroid nodule. This does not require follow-up. IMPRESSION: No acute intracranial abnormality. No acute fracture or traumatic malalignment of the cervical spine.
--- NOTE | 2024-08-17 20:16 | RAD REPORT ---
EXAMINATION: Sacrum And Coccyx VIEWS: Three views CLINICAL INDICATION: Female, 68 years old. PAIN COMPARISON: No prior exam. IMPRESSION: No displaced fracture of the sacrum or coccyx identified. Nondisplaced or minimally displaced fractur es would be difficult to exclude radiographically. If there is persistent clinical concern for significant trauma, consider either CT or MRI. No other pelvic fractures seen. The femoral heads overlie the respective acetabula.
--- NOTE | 2024-08-17 20:23 | EDPHYS ---
Physician Documentation [facility] Name: Carmenza Sinclair Age: 68 yrs Sex: Female : 1955 Arrival Date: 08/17/2024 Time: 19:04 Bed DX4 Private MD: ED Physician Alli Jasmine HPI: 08/17 20:47 This 68 yrs old Female presents to ER via Wheelchair with complaints of Head kb Injury-Adult. 20:47 Pt is a 68 year old female who presents after a slip and fall in the shower. States she kb slipped while trying to get out, fell to her buttocks and hit the back of her head. Denies LOC. States she didn't want to come in, but her family thought she needed to since she hit her head and is on blood thinners. . Historical: - Allergies: 19:34 Cortisone; swelling; me1 - PMHx: 19:34 Cerebrovascular accident; Diabetes - NIDDM; Hyperlipidemia; Hypertension; Seizure; me1 - PSHx: 19:34 Cholecystectomy; Operative procedure on knee; Ligation of fallopian tube; I\T\D of me1 abscess; - Immunization history:: Adult Immunizations up to date. - Infectious Disease History:: Denies. - Social history:: Smoking status: Patient denies any tobacco usage or history of. ROS: 20:45 Constitutional: As per HPI kb Exam: 20:45 Constitutional: This is a well developed, well nourished patient who is awake, alert, kb and in no acute distress. Head/Face: Normocephalic, atraumatic. ENT: Moist Mucous membranes Cardiovascular: Regular rate Respiratory: Respirations even and unlabored. No increased work of breathing. Talking in full sentences Skin: Warm, dry with normal turgor. Normal color. MS/ Extremity: Pulses equal, no cyanosis. Neurovascular intact. Full, normal range of motion. Neuro: Awake and alert, GCS 15, oriented to person, place, time, and situation. 20:45 Neck: External neck: tenderness, that is moderate, of the left mid cervical area, right mid cervical area and lower cervical area, 20:45 Back: pain, that is moderate, of the sacrum, Vital Signs: 19:30 BP 142 / 79; Pulse 78; Resp 18; Temp 97.4; Pulse Ox 95% ; Weight 86.18 kg; Height 5 ft. me1 5 in. ; Pain 10/10; 20:33 BP 138 / 76; Pulse 81; Resp 17; Temp 98.1; Pulse Ox 96% ; me1 19:30 Body Mass Index 31.62 (86.18 kg, 165.1 cm) me1 19:30 Pain Scale: Adult me1 Orient Coma Score: 19:30 Eye Response: spontaneous(4). Motor Response: obeys commands(6). Verbal Response: me1 oriented(5). Total: 15. 20:46 Eye Response: spontaneous(4). Motor Response: obeys commands(6). Verbal Response: kb oriented(5). Total: 15. MDM: 19:20 Medical Screening Exam initiated kb 20:46 Differential diagnosis: Contusion of Hematoma on Intracranial bleed- Concussion. Data kb reviewed: vital signs, nurses notes. Historians other than the Patient: Daughter/Son: daughter. Counseling: I had a detailed discussion with the patient and/or guardian regarding the historical points, exam findings, and any diagnostic results supporting the discharge/admit diagnosis, radiology results, the need for outpatient follow up, a family practitioner, to return to the emergency department if symptoms worsen or persist or if there are any questions or concerns that arise at home. ED course: Pt requests that we remove dressing to abdomen. States she had an I\T\D yesterday and was supposed to remove the dressing today, but couldn't do it herself. . 08/17 19:34 Order name: Sacrum And Coccyx XRAY; Complete Time: 20:17 kb 08/17 19:34 Order name: CT Head C Spine; Complete Time: 20:15 kb 08/17 20:23 Order name: Misc. Order: please remove dressing for patient; Complete Time: 20:33 kb Administered Medications: No medications were administered Disposition Summary: 08/17/24 20:22 Discharge Ordered Notes: Location: Home kb Condition: Stable kb Diagnosis - Unspecified injury of head, initial encounter kb - Low back pain kb - Fall on same level, unspecified kb Followup: kb - With: Emergency Department - When: As needed - Reason: Worsening of condition Followup: kb - With: Private Physician - When: 2 - 3 days - Reason: Recheck today's complaints, Continuance of care, Re-evaluation by your physician Discharge Instructions: - Discharge Summary Sheet kb - Musculoskeletal Pain kb - Head Injury, Adult, [id number] kb Forms: - Medication Reconciliation Form kb - Antibiotic Education kb - Prescription Opioid Use kb - Patient Portal Instructions kb - Leadership Thank You Letter kb Signatures: Dispatcher [employer] Jagruti Lopez, MAGGI-C Karely Naik, RN RN me1
--- NOTE | 2024-08-17 20:23 | ER ---
Nurse's Notes [facility] Name: Carmenza Sinclair Age: 68 yrs Sex: Female : 1955 Arrival Date: 08/17/2024 Time: 19:04 Bed DX4 Private MD: Diagnosis: Unspecified injury of head, initial encounter;Low back pain;Fall on same level, unspecified Presentation: 08/17 19:30 Chief complaint: Patient states: just travel pta patient was getting into the shower and me1 slipped and fell hitting the back of her head and her tailbone, No LOC. Takes plavix and aspirin. Pain to head and coccyx 10/10. Coronavirus screen: At this time, the client does not indicate any symptoms associated with coronavirus-19. Ebola Screen: No symptoms or risks identified at this time. Mechanism of Injury: resulted from a fall, slipped. Initial Sepsis Screen: Does the patient meet any 2 criteria? No. Patient's initial sepsis screen is negative. Does the patient have a suspected source of infection? No. Patient's initial sepsis screen is negative. Risk Assessment: Do you want to hurt yourself or someone else? Patient reports no desire to harm self or others. 19:30 Method Of Arrival: Wheelchair [facility] 19:30 Acuity: STACIE 3 [facility] 20:34 Onset of symptoms was August 17, 2024. [facility] Triage Assessment: 19:34 General: Appears uncomfortable, well groomed, well developed, well nourished, Behavior me1 is calm, cooperative, appropriate for age, Reports slip and fall when getting in the shower just travel p[place]. hit the back of her head and her coccyx. c/o pain 10/10. Pain: Complains of pain in head and gluteal cleft Pain does not radiate. Pain currently is 10 out of 10 on a pain scale. Quality of pain is described as aching, Pain began suddenly, Is continuous. EENT: No signs and/or symptoms were reported regarding the EENT system. Neuro: Level of Consciousness is awake, alert, obeys commands, Oriented to person, place, time, situation, Appropriate for age Reports headache. Cardiovascular: Patient's skin is warm and dry. Respiratory: Airway is patent Respiratory effort is even, unlabored, Respiratory pattern is regular, symmetrical. GI: No signs and/or symptoms were reported involving the gastrointestinal system. : No signs and/or symptoms were reported regarding the genitourinary system. Derm: Skin is intact, is healthy with good turgor, Skin is pink, warm \T\ dry. Musculoskeletal: Reports pain in gluteal cleft. Historical: - Allergies: 19:34 Cortisone; swelling; me1 - PMHx: 19:34 Cerebrovascular accident; Diabetes - NIDDM; Hyperlipidemia; Hypertension; Seizure; me1 - PSHx: 19:34 Cholecystectomy; Operative procedure on knee; Ligation of fallopian tube; I\T\D of me1 abscess; - Immunization history:: Adult Immunizations up to date. - Infectious Disease History:: Denies. - Social history:: Smoking status: Patient denies any tobacco usage or history of. Screenin:32 [facility] ED Fall Risk Assessment (Adult) History of falling in the last 3 months, me1 including since admission Yes- single mechanical fall (1 pt) Confusion or Disorientation No (0 pts) Intoxicated or Sedated No (0 pts) Impaired Gait No (0 pts) Mobility Assist Device Used No (0 pt) Altered Elimination No (0 pt) Score/Fall Risk Level 0 - 2 = Low Risk Maintained a safe environment, Provided non-skid footwear, Hourly rounding (assess needs \T\ fall precautionary measures) done. Abuse screen: Denies threats or abuse. Nutritional screening: No deficits noted. Tuberculosis screening: No symptoms or risk factors identified. Assessment: 20:32 General: See triage assessment. me1 Vital Signs: 19:30 BP 142 / 79; Pulse 78; Resp 18; Temp 97.4; Pulse Ox 95% ; Weight 86.18 kg; Height 5 ft. me1 5 in. ; Pain 10/10; 20:33 BP 138 / 76; Pulse 81; Resp 17; Temp 98.1; Pulse Ox 96% ; me1 19:30 Body Mass Index 31.62 (86.18 kg, 165.1 cm) me1 19:30 Pain Scale: Adult me1 [place] Coma Score: 19:30 Eye Response: spontaneous(4). Motor Response: obeys commands(6). Verbal Response: me1 oriented(5). Total: 15. 20:46 Eye Response: spontaneous(4). Motor Response: obeys commands(6). Verbal Response: kb oriented(5). Total: 15. ED Course: 19:06 Patient arrived in ED. 19:20 Jagruti Vasquez FNP-C is [facility] kb 19:20 Alli Jasmine MD is Attending Physician. kb 19:34 Triage completed. me1 19:34 Arm band placed on Patient placed in waiting room. me1 19:55 Sacrum And Coccyx XRAY In Process Unspecified. EDMS 20:00 CT Head C Spine In Process Unspecified. EDMS 20:32 Patient has correct armband on for positive identification. Bed in low position. Call me1 light in reach. Side rails up X2. Provided Education on: POC. Verbalized understanding.. 20:32 No provider procedures requiring assistance completed. Patient did not have IV access me1 during this emergency room visit. Administered Medications: No medications were administered Medication: 20:32 VIS not applicable for this client. me1 Outcome: 20:22 Discharge ordered by MD. kb 20:34 Discharged to home via wheelchair, with family, me1 20:34 Condition: stable 20:34 Discharge instructions given to patient, family, Instructed on discharge instructions, follow up and referral plans. Demonstrated understanding of instructions, follow-up care, 20:34 Patient left the ED. me1 Signatures: Dispatcher [employer] EDWI Jagruti Vasquez FNP-C SKIVER WELT END-Dolly Noyola Karely Edwards, RN RN me1
[2024-08-17 20:48] VITALS: BP 138/76; TEMP 98.1; O2SAT 96
== END 2024-08-17 20:34 | disposition home or self-care (01) ==
LOC: ER 19:04
DX: S09.90XA Unspecified injury of head, initial encounter (principal); M54.50 Low back pain, unspecified; W18.2XXA Fall in (into) shower or empty bathtub, initial encounter
CPT/HCPCS: 70450; 72125; 72220; 99283